=== PATIENT | female | born 1940 | race Caucasian/White ===

== ENCOUNTER 2017-02-22 | Outpatient (CLI) | payer MEDICARE, OTHER ==
[2017-02-22 19:11] LABS: HCT - HEMATOCRIT 44.3 % (37.0-47.0); HGB - HEMOGLOBIN 14.5 g/dL (12.0-16.0); MEAN CORPUSCULAR HEMOGLOBIN 33.4 pg (27.0-31.0); MEAN CORPUSCULAR HGB CONC 32.6 g/dL (32.0-36.0); MEAN CORPUSCULAR VOLUME 102.4 fL (81.0-99.0); MEAN PLATELET VOLUME 10.3 fL (7.9-10.8); RED BLOOD COUNT 4.33 10^6/uL (4.20-5.40); RED CELL DISTRIBUTION WIDTH 14.5 % (12.0-15.0); WHITE BLOOD COUNT 6.7 x10^3/uL (4.8-10.8)
[2017-02-22 19:27] LABS: ALBUMIN/GLOBULIN RATIO 1.3 (1.0-2.2); BILIRUBIN,TOTAL 0.7 mg/dL (0.2-1.0); BUN - BLOOD UREA NITROGEN 15 mg/dL (6-20); CALCIUM 9.1 mg/dL (8.5-10.3); CARBON DIOXIDE - CO2 25 mmol/L (21-32); CHLORIDE 107 mmol/L (101-111); CREATININE 0.5 mg/dL (0.4-1.0); GFR - MDRD 120 (>89); GLUCOSE 103 mg/dL (70-100); POTASSIUM 4.3 mmol/L (3.5-5.0); SODIUM 141 mmol/L (135-145); TOTAL PROTEIN 6.8 g/dL (6.7-8.2)
[2017-02-22 19:57] LABS: HEMOGLOBIN A1C 0.52 g/dL
== END 2017-02-22 00:01 | disposition home or self-care (01) ==
LOC: LAB.WCP
PROVIDERS: ATTEND Family Medicine
DX: R73.01 Impaired fasting glucose (principal); M35.3 Polymyalgia rheumatica
CPT/HCPCS: 36415; 80053; 83036; 85651; 86140

== ENCOUNTER 2017-10-19 10:00 | Outpatient (CLI) | payer MEDICARE, OTHER ==
[2017-10-19 13:09] LABS: BASOPHILS # (AUTO) 0.1 10^3/uL (0.0-0.1); BASOPHILS % (AUTO) 1.3 %; EOSINOPHILS % (AUTO) 0.2 %; HGB - HEMOGLOBIN 14.3 g/dL (12.0-16.0); LYMPHOCYTES # (AUTO) 0.6 10^3/uL (1.5-3.5); MEAN CORPUSCULAR HEMOGLOBIN 36.4 pg (27.0-31.0); MEAN CORPUSCULAR HGB CONC 35.2 g/dL (32.0-36.0); MEAN CORPUSCULAR VOLUME 103.2 fL (81.0-99.0); MEAN PLATELET VOLUME 9.9 fL (7.9-10.8); MONOCYTES # (AUTO) 0.3 10^3/uL (0.0-1.0); MONOCYTES % (AUTO) 2.9 %; NEUTROPHILS % (AUTO) 89.6 %; PLT - PLATELET COUNT 163 10^3/uL (130-450); RED BLOOD COUNT 3.94 10^6/uL (4.20-5.40); RED CELL DISTRIBUTION WIDTH 14.2 % (12.0-15.0)
[2017-10-19 13:14] LABS: ALBUMIN 3.8 g/dL (3.2-5.5); ALBUMIN/GLOBULIN RATIO 1.2 (1.0-2.2); CALCIUM 8.5 mg/dL (8.5-10.3); CREATININE 0.6 mg/dL (0.4-1.0); TOTAL PROTEIN 7.1 g/dL (6.7-8.2)
== END 2017-10-19 10:01 | disposition home or self-care (01) ==
LOC: LAB.WCP 10:00
PROVIDERS: ATTEND Family Medicine
DX: N10 Acute pyelonephritis (principal); R39.89 Other symptoms and signs involving the genitourinary system
CPT/HCPCS: 36415; 80053; 85025; 87040; 87086

== ENCOUNTER 2017-10-20 09:16 | Inpatient (IN) | payer MEDICARE, OTHER ==
--- NOTE | 2017-10-20 09:32 | ED Physician Documentation ---
History of Present Illness - Stated complaint Stated Complaint: FEMALE - Chief complaint Chief Complaint: General - History obtained from History obtained from: Patient - History of Present Illness Timing: Yesterday Pain level max: 5 Pain level now: 4 Improved by: nothing Worsened by: nothing - Additonal information Additional information: Patient is a 77-year-old female who was not feeling well for the past couple months, went to her doctor yesterday and diagnosed with pyelonephritis. Blood cultures were drawn which are growing out gram-negative bacilli, consistent with E. coli. Sent here for evaluation. Review of Systems Ten Systems: 10 systems reviewed and negative Constitutional: denies: Fever, Chills Ears: denies: Ear pain Nose: denies: Rhinorrhea / runny nose, Congestion Throat: denies: Sore throat Cardiac: denies: Chest pain / pressure Respiratory: denies: Cough GI: denies: Vomiting, Diarrhea, Hematemesis, Bloody / black stool : reports: Dysuria, Frequency, Hesitancy Skin: denies: Lesions Musculoskeletal: reports: Back pain (mild flank pain). denies: Neck pain PD PAST MEDICAL HISTORY - Past Medical History Cardiovascular: None Respiratory: COPD GI: Hiatal hernia : Kidney stones HEENT: None, Macular degeneration Psych: Depression Musculoskeletal: Chronic back pain - Past Surgical History Past Surgical History: No General: Hiatal hernia repair HEENT: Other - Present Medications Home Medications: Ambulatory Orders Medication Instructions Recorded Confirmed HYDROcod/ACETAM 5/325 [Vicodin 1 tab PO PRN PRN 09/22/15 10/20/17 5/325] PARoxetine [Paxil] 30 mg PO DAILY 09/22/15 10/20/17 Propranolol ER [Inderal LA] 60 mg PO DAILY 09/22/15 10/20/17 Tiotropium [Spiriva] 1 puffs INH DAILY 09/22/15 10/20/17 Albuterol Sulfate [Proair Hfa 2 puffs INH Q4H PRN 10/20/17 10/20/17 Inhaler] Cyanocobalamin (Vitamin B-12) 2,000 mcg PO DAILY 10/20/17 10/20/17 [Vitamin B-12] Memantine [Namenda] 10 mg PO BID 10/20/17 10/20/17 - Allergies Allergies/Adverse Reactions: Allergies Allergy/AdvReac Type Severity Reaction Status Date / Time ibuprofen [From Motrin] Allergy Unknown Verified 10/20/17 09:25 Penicillins AdvReac Intermediate Hives Verified 10/20/17 09:25 - Social History Does the pt smoke?: No Smoking Status: Never smoker Does the pt drink ETOH?: No Does the pt have substance abuse?: No - Immunizations Immunizations are current?: Yes PD ED PE NORMAL - Vitals Vital signs reviewed: Yes - General General: Alert and oriented X 3, No acute distress, Well developed/nourished - HEENT HEENT: PERRL, Moist mucous membranes - Neck Neck: Supple, no meningeal sign - Cardiac Cardiac: RRR, Strong equal pulses - Respiratory Respiratory: No respiratory distress, Clear bilaterally - Abdomen Abdomen: Soft, Non tender, Non distended - Back Back: No CVA TTP, No spinal TTP - Derm Derm: Warm and dry, No rash - Extremities Extremities: No edema, No calf tenderness / cord - Neuro Neuro: Alert and oriented X 3 - Psych Psych: Normal mood, Normal affect Results - Vitals Vitals: Vital Signs - 24 hr 10/20/17 09:22 Temperature 36.1 C L Heart Rate 95 Respiratory 18 Rate Blood Pressure 115/72 O2 Saturation 92 Oxygen O2 Source Room air - Labs Labs: Laboratory Tests 10/20/17 10/20/17 10/20/17 09:30 09:40 09:40 WBC 8.6 RBC 3.89 L Hgb 13.9 Hct 41.8 MCV 107.5 H MCH 35.7 H MCHC 33.2 RDW 14.6 Plt Count 155 MPV 10.2 Neut # 7.2 H Lymph # 0.8 L [place] # 0.6 Eos # 0.0 Baso # 0.0 Absolute Nucleated RBC 0.00 Nucleated RBC % 0.0 Sodium 133 L Potassium 3.5 Chloride 99 L Carbon Dioxide 24 Anion Gap 10.0 BUN 13 Creatinine 0.7 Estimated GFR (MDRD) 81 L Glucose 113 H Lactic Acid Calcium 8.1 L Total Bilirubin 1.0 AST 18 ALT 13 Alkaline Phosphatase 100 Total Protein 7.2 Albumin 3.7 Globulin 3.5 Albumin/Globulin Ratio 1.1 Lipase 24 Urine Color YELLOW Urine Clarity CLOUDY Urine pH 6.0 Ur Specific [place] 1.025 Urine Protein 30 H Urine Glucose (UA) NEGATIVE Urine Ketones 15 H Urine Occult Blood MODERATE H Urine Nitrite NEGATIVE Urine Bilirubin NEGATIVE Urine Urobilinogen 0.2 (NORMAL) Ur Leukocyte Esterase TRACE H Urine RBC 6-10 H Urine WBC 11-25 H Ur Squamous Epith Cells RARE Squamous Urine Bacteria Few Ur Microscopic Review INDICATED Urine Culture Comments INDICATED 10/20/17 09:40 WBC RBC Hgb Hct MCV MCH MCHC RDW Plt Count MPV Neut # Lymph # [place] # Eos # Baso # Absolute Nucleated RBC Nucleated RBC % Sodium Potassium Chloride Carbon Dioxide Anion Gap BUN Creatinine Estimated GFR (MDRD) Glucose Lactic Acid 1.1 Calcium Total Bilirubin AST ALT Alkaline Phosphatase Total Protein Albumin Globulin Albumin/Globulin Ratio Lipase Urine Color Urine Clarity Urine pH Ur Specific [place] Urine Protein Urine Glucose (UA) Urine Ketones Urine Occult Blood Urine Nitrite Urine Bilirubin Urine Urobilinogen Ur Leukocyte Esterase Urine RBC Urine WBC Ur Squamous Epith Cells Urine Bacteria Ur Microscopic Review Urine Culture Comments PD MEDICAL DECISION MAKING - ED course Complexity details: reviewed results, re-evaluated patient, considered differential, d/w patient ED course: Patient is a 77-year-old female presents to the emergency department with gram- negative bacilli consistent with E. coli growing in an outpatient blood culture. Has a positive UTI as well. Likely early urosepsis. Given IV fluids as well as Rocephin. Will admit to the hospitalist. Discussed with Dr. Wynne who accepts. This document was made in part using voice recognition software. While efforts are made to proofread this document, sound alike and grammatical errors may occur. Departure - Departure Disposition: 66 [facility] DC/Xfer Clinical Impression: Positive blood culture Sepsis Qualifiers: Sepsis type: Escherichia coli Qualified Code(s): A41.51 - Sepsis due to Escherichia coli [E. coli] UTI (urinary tract infection) Qualifiers: Urinary tract infection type: acute pyelonephritis Qualified Code(s): N10 - Acute pyelonephritis Condition: Stable Discharge Date/Time: 10/20/17 10:37
[2017-10-20] MEDS ORDERED: cefTRIAXone 1 GM VIAL IVP STA (09:44)
[2017-10-20] MEDS ORDERED: SODIUM CHLORIDE 0.9% 1,000 ML IV ONE ×2 (09:44)
[2017-10-20 09:58] LABS: BASOPHILS % (AUTO) 0.6 %; EOSINOPHILS % (AUTO) 0.3 %; HGB - HEMOGLOBIN 13.9 g/dL (12.0-16.0); LYMPHOCYTES # (AUTO) 0.8 10^3/uL (1.5-3.5); LYMPHOCYTES % (AUTO) 9.2 %; MEAN CORPUSCULAR HEMOGLOBIN 35.7 pg (27.0-31.0); MEAN CORPUSCULAR HGB CONC 33.2 g/dL (32.0-36.0); MEAN CORPUSCULAR VOLUME 107.5 fL (81.0-99.0); MEAN PLATELET VOLUME 10.2 fL (7.9-10.8); MONOCYTES # (AUTO) 0.6 10^3/uL (0.0-1.0); MONOCYTES % (AUTO) 7.1 %; NEUTROPHILS # (AUTO) 7.2 10^3/uL (1.5-6.6); NEUTROPHILS % (AUTO) 82.8 %; PLT - PLATELET COUNT 155 10^3/uL (130-450); RED BLOOD COUNT 3.89 10^6/uL (4.20-5.40); RED CELL DISTRIBUTION WIDTH 14.6 % (12.0-15.0); WHITE BLOOD COUNT 8.6 x10^3/uL (4.8-10.8)
[2017-10-20 10:06] LABS: ALBUMIN 3.7 g/dL (3.2-5.5); ALBUMIN/GLOBULIN RATIO 1.1 (1.0-2.2); CALCIUM 8.1 mg/dL (8.5-10.3); CREATININE 0.7 mg/dL (0.4-1.0); TOTAL PROTEIN 7.2 g/dL (6.7-8.2)
[2017-10-20 10:15] LABS: GLUCOSE, URINE (UA) NEGATIVE (NEGATIVE); KETONES,URINE (UA) 15 mg/dL (NEGATIVE); LEUKOCYTE ESTERASE, URINE TRACE (NEGATIVE); NITRITE,URINE NEGATIVE (NEGATIVE); OCCULT BLOOD,URINE MODERATE (NEGATIVE); PROTEIN,URINE 30 mg/dL (NEGATIVE); UROBILINOGEN,URINE 0.2 (NORMAL) E.U./dL (NORMAL)
[2017-10-20 10:16] LABS: CLARITY,URINE CLOUDY (CLEAR)
[2017-10-20 10:20] LABS: BILIRUBIN,URINE NEGATIVE (NEGATIVE); ICTOTEST,URINE NEGATIVE
[2017-10-20 10:29] LABS: BACTERIA,URINE Few /HPF (None Seen); SQUAMOUS EPITHELIAL CELL,UR RARE Squamous (<= Few)
[2017-10-20] MEDS ORDERED: PROCHLORPERAZINE 10 MG/2 ML VIAL IVP PRN (17:24)
[2017-10-20] MEDS ORDERED: HYDROmorphone 1 MG/ML SYRINGE IVP PRN (17:24)
[2017-10-20] MEDS ORDERED: ACETAMINOPHEN 325 MG TABLET PO PRN (17:24)
[2017-10-20] MEDS ORDERED: SODIUM CHLORIDE FLUSH 0.9% 10 ML SYRINGE IVP PRN (17:24)
[2017-10-20] MEDS ORDERED: HYDROcod/ACETAM 5/325 MG TABLET PO PRN (17:28)
[2017-10-20] MEDS: SODIUM CHLORIDE 0.9% 1,000 ML IV SCH (18:21)
[2017-10-20] MEDS ORDERED: ALBUTEROL NEB 2.5 MG/3 ML INH PRN (19:00)
[2017-10-20] MEDS: FAMOTIDINE 20 MG TABLET PO SCH (20:17)
[2017-10-20] MEDS: MEMANTINE 5 MG TABLET PO SCH (20:17)
[2017-10-20] MEDS: SODIUM CHLORIDE FLUSH 0.9% 10 ML SYRINGE IVP SCH (20:19)
[2017-10-20] MEDS: IPRATROPIUM 0.2 MG/ML NEB INH SCH (20:49)
--- NOTE | 2017-10-20 21:00 | XRAY Preliminary Report ---
Exam: XR CHEST 1 VIEW X-RAY IMPRESSION: Chronic lung disease. [facility] SITE ID: [id number]
--- NOTE | 2017-10-20 21:02 | XRAY Report ---
EXAM: CHEST RADIOGRAPHY EXAM DATE: 10/20/2017 07:33 PM. CLINICAL HISTORY: Productive cough. COMPARISON: 06/03/2017. TECHNIQUE: 1 view. FINDINGS: Lungs/Pleura: No focal opacities evident. No pleural effusion. No pneumothorax. Overexpanded, emphyse matous changes. Mediastinum: Within exam limitations, the cardiomediastinal contour is normal. Other: None. IMPRESSION: Chronic lung disease. [facility] Referring Provider Line: [phone] SITE ID: [id number]
[2017-10-20] MEDS: ZOLPIDEM 5 MG TABLET PO PRN (21:32)
[2017-10-21] MEDS ORDERED: HYDROcod/ACETAM 5/325 MG TABLET PO PRN (00:04)
[2017-10-21 05:35] LABS: BASOPHILS % (AUTO) 0.8 %; EOSINOPHILS # (AUTO) 0.2 10^3/uL (0.0-0.7); HGB - HEMOGLOBIN 11.9 g/dL (12.0-16.0); LYMPHOCYTES % (AUTO) 22.9 %; MEAN CORPUSCULAR HEMOGLOBIN 35.4 pg (27.0-31.0); MEAN CORPUSCULAR HGB CONC 32.8 g/dL (32.0-36.0); MEAN CORPUSCULAR VOLUME 107.9 fL (81.0-99.0); MEAN PLATELET VOLUME 9.6 fL (7.9-10.8); MONOCYTES # (AUTO) 0.5 10^3/uL (0.0-1.0); MONOCYTES % (AUTO) 12.2 %; NEUTROPHILS # (AUTO) 2.7 10^3/uL (1.5-6.6); NEUTROPHILS % (AUTO) 60.1 %; PLT - PLATELET COUNT 135 10^3/uL (130-450); RED BLOOD COUNT 3.37 10^6/uL (4.20-5.40); RED CELL DISTRIBUTION WIDTH 14.2 % (12.0-15.0); WHITE BLOOD COUNT 4.5 x10^3/uL (4.8-10.8)
[2017-10-21 05:41] LABS: CALCIUM 7.6 mg/dL (8.5-10.3); CREATININE 0.6 mg/dL (0.4-1.0)
[2017-10-21] MEDS: SODIUM CHLORIDE FLUSH 0.9% 10 ML SYRINGE IVP SCH ×3 (05:58→21:10)
[2017-10-21] MEDS: SODIUM CHLORIDE 0.9% 1,000 ML IV SCH ×2 (06:38→19:57)
[2017-10-21] MEDS ORDERED: IOPAMIDOL-300 100 ML VIAL IVP ONE (06:41)
--- NOTE | 2017-10-21 07:07 | CT Report ---
EXAM: CT HEAD EXAM DATE: 10/21/2017 06:46 AM. CLINICAL HISTORY: Headache. COMPARISON: 01/15/2011 TECHNIQUE: Multiaxial CT images were obtained from the foramen magnum to the vertex. Reformats: Coron al. IV contrast: None. In accordance with CT protocol optimization, one or more of the following dose reduction techniques w ere utilized for this exam: automated exposure control, adjustment of mA and/or KV based on patient s ize, or use of iterative reconstructive technique. FINDINGS: Parenchyma: No intraparenchymal hemorrhage. No evidence of mass, midline shift, or CT findings of acu te infarction. Ferguson-white differentiation is distinct. Diffuse chronic microangiopathic white matter changes are evident. Extraaxial Spaces: Normal for age. No subdural or epidural collections identified. Ventricles: The ventricles and cortical sulci are enlarged, consistent with age-related tissue loss. Sinuses and orbits: Imaged paranasal sinuses, orbits, and mastoids show no significant abnormality. Bones: No evidence of fracture or calvarial defect. Other: No acute findings or significant interval change compared with 01/15/2011. IMPRESSION: Generalized age-related changes without evidence of acute intracranial abnormality. [facility] Referring Provider Line: [phone] SITE ID: [id number]
--- NOTE | 2017-10-21 07:07 | CT Preliminary Report ---
Exam: CT HEAD W/O IMPRESSION: Generalized age-related changes without evidence of acute intracranial abnormality. [facility] SITE ID: [id number]
--- NOTE | 2017-10-21 07:11 | HISTORY & PHYSICAL EXAMINATION ---
DATE OF SERVICE: 10/20/2017 Physician: Shelby Whiteside MD DATE OF ADMISSION: 10/20/2017 HISTORY OF PRESENT ILLNESS: This is a 77-year-old white female with a history of COPD on inhalers, GERD, macular degeneration, hiatal hernia, depression, remote history of kidney stones and frequent UTIs. The patient states that over the past 1 or 2 months she has been "not feeling well" and has been treated for bronchitis. Despite finishing antibiotics, she still has a chronic morning cough with green and yellow sputum production and the first sputum in the morning is blood tinged. She started to develop lower abdominal pain 1 or 2 days ago and went to see her primary care provider who obtained urine and blood samples and she was suspected of having a UTI. The blood cultures returned positive and the patient was called to come to the emergency room for treatment. PAST MEDICAL HISTORY 1. COPD on inhalers. 2. Hiatal hernia. 3. Kidney stones. 4. Frequent UTIs. 5. Depression. 6. Chronic low back pain. 7. Macular degeneration. PAST SURGICAL HISTORY: Hiatal hernia repair. ALLERGIES 1. IBUPROFEN. 2. PENICILLIN CAUSES HIVES. HOME MEDICATIONS 1. Vicodin p.r.n. pain. 2. Paxil. 3. Inderal LA 60 mg p.o. daily. 4. Spiriva 1 puff daily. 5. ProAir HFA 2 puffs every 4 hours p.r.n. 6. B12 daily. 7. Namenda 10 mg b.i.d. FAMILY HISTORY: There are no inherited diseases. SOCIAL HISTORY: The patient is an ex-smoker who quit 20 years ago, she drinks alcohol socially, she uses no illicit drugs. She lives alone. She was at the age 49, had no children, is . The ex- has . REVIEW OF SYSTEMS: The patient denies any fever, but states she "never gets a fever." The patient has a tension headache, which is worse frontally when she coughs. She has had no diarrhea, nausea or vomiting. She has no dysuria. A comprehensive review of systems was performed and all other organs are negative. PHYSICAL EXAMINATION GENERAL: White female who appears in mild distress from pain. VITAL SIGNS: Blood pressure 120/54, heart rate 79 in sinus rhythm, afebrile. HEENT: Unremarkable with moist oral mucosa. NECK: Shows no carotid bruits, thyromegaly, or JVD. CHEST: Diminished breath sounds diffusely, but no wheezes or rales. HEART: Sounds are normal. No audible murmurs. ABDOMEN: Soft, positive bowel sounds, nontender to light palpation. No organomegaly. EXTREMITIES: Show no clubbing, cyanosis or edema. NEUROLOGIC: Grossly intact. LABORATORY DATA: Sodium 133, potassium 3.5, BUN and creatinine normal. Liver tests normal, bilirubin, normal. Lactic acid normal at 1.1. Lipase normal. CBC normal at 8.6, hemoglobin 13.9, platelet count normal at 155. Urinalysis showed pH of 6, protein that was high, occult blood moderate, ketones moderate, leukocyte esterase trace, WBCs high, RBCs high, and few bacteria. The outpatient blood culture apparently is growing gram-negative bacteria. No imaging studies were done. No EKG was done. IMPRESSION/DIAGNOSES and PLAN: 1. Gram-negative bacteremia. This is likely from the pyelonephritis/urinary tract infection. Await the blood cultures and continue empiric Rocephin 1 gram IV daily, which was started in the emergency room. 2. Urinary tract infection with lower abdominal pain and flank pain. Continue with IV fluids. Obtain imaging of the abdomen and pelvis to rule out obstructive uropathy or kidney stones as she has had in the past which could be a nidus for recurrent infection. Await the urine and blood cultures. 3. Cough with blood-tinged sputum and recent bronchitis. Obtain a sputum culture and obtain a chest x-ray. 4. Headache during cough. This needs attention as it could be a sign of increased intracranial pressure. Therefore, a CT of the head will be done for screening. This could also be a sign of overall bacteremia and illness and will be treated with pain medications. 5. History of kidney stones. The CT of abdomen and pelvis will evaluate for this. Because of blood in the urine, nephrolithiasis is once again suspected. 6. History of chronic obstructive pulmonary disease. Continue her inhalers. Obtain this chest x-ray. Ceftriaxone should be coverage for gram-negative and atypical bacteria. Deep venous thrombosis prophylaxis: sequential compression devices. o Lovenox due to "blood tinged sputum". CODE STATUS: FULL CODE. ATTESTATION: The patient is expected to be discharged or transferred to another facility within 96 hours: Yes. TD: 10/21/2017 07:10 [place]
[2017-10-21] MEDS: IPRATROPIUM 0.2 MG/ML NEB INH SCH ×3 (08:07→10:04)
--- NOTE | 2017-10-21 08:14 | CT Report ---
EXAM: CT ABDOMEN AND PELVIS EXAM DATE: 10/21/2017 06:44 AM. CLINICAL HISTORY: Pyelonephritis, Lower abd pain. COMPARISONS: None. TECHNIQUE: Routine helical CT imaging was performed through the abdomen and pelvis. IV contrast: 100M L ISOVUE 300. Enteric contrast: No. Reconstructions: Coronal and sagittal. In accordance with CT protocol optimization, one or more of the following dose reduction techniques w ere utilized for this exam: automated exposure control, adjustment of mA and/or KV based on patient s ize, or use of iterative reconstructive technique. FINDINGS: Lung Bases: Unremarkable. Liver: Normal. No masses. Gallbladder/Bile Ducts: Unremarkable. Spleen: There is a 1.1 cm, previously 0.6 cm hypodense focus along the lateral cortex of the spleen. This measures 66 Hounsfield units in attenuation. Pancreas: Normal. Adrenal Glands: Normal. Kidneys: There is a 3.1 cm simple appearing cyst in the superior pole of the left kidney. There are m ultiple nonobstructing stones in the left and right kidneys measuring up to 6 mm on the left and 4 mm on the right. There is mild right-sided hydronephrosis and hydroureter down to the level of an obstr ucting stone measuring 7 mm at the ureterovesical junction. Peritoneal Cavity/Bowel: Normal. No free fluid, free air or adenopathy. No masses or acute inflammato ry process. The appendix is well visualized and normal. Pelvic Organs: Normal. The bladder and visualized pelvic organs are within normal limits. Vasculature: No aneurysms or other significant abnormality. Bones: No significant abnormality. Other: None. IMPRESSION: 1. Mild right-sided hydronephrosis and hydroureter down to the level of an obstructing 7 mm stone in the ureterovesical junction. 2. Multiple nonobstructing stones in the left and right kidneys measuring up to 6 mm on the left and 4 mm on the right. 3. No bowel obstruction or inflammatory process associated with the bowel. [facility] Referring Provider Line: [phone] SITE ID: [id number]
--- NOTE | 2017-10-21 08:14 | CT Preliminary Report ---
Exam: CT ABDOMEN/PELVIS W/ IMPRESSION: 1. Mild right-sided hydronephrosis and hydroureter down to the level of an obstructing 7 mm stone in the ureterovesical junction. 2. Multiple nonobstructing stones in the left and right kidneys measuring up to 6 mm on the left and 4 mm on the right. 3. No bowel obstruction or inflammatory process associated with the bowel. [facility] SITE ID: [id number]
[2017-10-21] MEDS: FAMOTIDINE 20 MG TABLET PO SCH ×2 (10:33→21:10)
[2017-10-21] MEDS: PARoxetine 10 MG TABLET PO SCH (10:33)
[2017-10-21] MEDS: CHOLECALCIFEROL 1,000 UNIT TABLET PO SCH (10:34)
[2017-10-21] MEDS: PROPRANOLOL ER 60 MG CAPSULE PO SCH (10:34)
[2017-10-21] MEDS: MEMANTINE 5 MG TABLET PO SCH ×2 (10:34→21:10)
[2017-10-21] MEDS: cefTRIAXone 1 GM in SODIUM CHLORIDE 0.9% MINIBAG 100 ML IV SCH (10:35)
[2017-10-21] MEDS: POLYETHYLENE GLYCOL 3350 17 GM PACKET PO SCH (10:44)
[2017-10-21 11:16] LABS: FOLATE 7.67 ng/mL (5.90 - >24.8)
[2017-10-21] MEDS: IPRATROPIUM/ALBUTEROL 3 ML NEB INH SCH ×3 (15:10→19:10)
[2017-10-21] MEDS: FOLIC ACID 1 MG TABLET PO SCH (16:11)
--- NOTE | 2017-10-21 19:36 | PROVIDER PROGRESS NOTE ---
Assessment/Plan - Problem List (1) Gram-negative bacteremia Assessment/Plan: The Ecoli growing in her cultures are sensitive to her iv Ceftriaxone. She appears clinically better on iv antibiotics and iv fluids plus rest. Continue plan (2) E-coli UTI Assessment/Plan: As above in #1. (3) Hydronephrosis with renal and ureteral calculus obstruction Assessment/Plan: This requires decompression and to eliminate a nidus for infection. I will reach out to Hospitalist and Urology at hospital with higher level of care. Will order straining of urine. (4) COPD (chronic obstructive pulmonary disease) Qualifiers: COPD type: chronic bronchitis Assessment/Plan: Sputum sample shows common oral keli. Continue with COPD management. - Current Meds Current Meds: Current Medications Generic Name Dose Route Start Last Admin Trade Name Freq PRN Reason Stop Dose Admin Acetaminophen 650 mg 10/20/17 17:24 10/21/17 06:38 Tylenol PO 650 mg Q4HR PRN Administration Pain or Fever > 38C (100.4F) Cholecalciferol 2,000 unit 10/21/17 09:00 10/21/17 10:34 Vitamin D3 PO 2,000 unit DAILY [place] Administration Famotidine 20 mg 10/20/17 21:00 10/21/17 10:33 Pepcid PO 20 mg BID [place] Administration Folic Acid 1 mg 10/21/17 16:00 10/21/17 16:11 PO 1 mg DAILY [place] Administration Sodium Chloride 1,000 mls @ 80 mls/hr 10/20/17 18:00 10/21/17 11:15 Normal Saline 0.9% IV 80 mls/hr .[id number] [place] Infusion Ceftriaxone Sodium 1 gm/ 100 mls @ 200 mls/hr 10/21/17 09:00 10/21/17 11:05 Sodium Chloride IV Infused DAILY [place] Infusion Memantine 10 mg 10/20/17 21:00 10/21/17 10:34 Namenda PO 10 mg BID [place] Administration Paroxetine HCl 30 mg 10/21/17 09:00 10/21/17 10:33 Paxil PO 30 mg DAILY [place] Administration Polyethylene Glycol 17 gm 10/21/17 09:00 10/21/17 10:44 Miralax PO Not Given DAILY [place] Propranolol HCl 60 mg 10/21/17 09:00 10/21/17 10:34 Inderal La PO 60 mg DAILY [place] Administration Sodium Chloride 10 ml 10/20/17 22:00 10/21/17 08:08 Normal Saline Flush 0.9% IVP Not Given Q8HR [place] Zolpidem Tartrate 5 mg 10/20/17 17:24 10/20/17 21:32 Ambien PO 5 mg QPM PRN Administration Insomnia - Lab Result Fish Bone Diagrams: 10/22/17 09:30 10/21/17 05:17 - Additional Planning My Orders: My Active Orders 10/20/17 20:54 RT [Nebulizer/MDI Tx.] [RC] .qid/q4prn 10/20/17 21:00 Famotidine [Pepcid] 20 mg PO BID Memantine [Namenda] 10 mg PO BID 10/20/17 22:00 Sodium Chloride Flush 0.9% [Normal Saline Flush 0.9%] 10 ml IVP Q8HR 10/21/17 08:30 CUL, RESPIRATORY [RM] Urgent 10/21/17 09:00 Cholecalciferol [Vitamin D3] 2,000 unit PO DAILY PARoxetine [Paxil] 30 mg PO DAILY Polyethylene Glycol 3350 [Miralax] 17 gm PO DAILY Propranolol ER [Inderal LA] 60 mg PO DAILY cefTRIAXone [Rocephin] 1 gm Sodium Chloride 0.9% Minibag [Normal Saline 0.9% Minibag] 100 ml IV DAILY 10/21/17 11:05 Resp Teach Nebulizer/MDI [RC] .ONCE 10/21/17 12:00 Ipratropium/Albuterol [Duoneb] 3 ml INH RTQID 10/21/17 16:00 Folic Acid 1 mg PO DAILY Subjective - Subjective Patient Reports: Feeling Better, Resting Comfortably Nursing Reports: No Complaints Objective Vital Signs: Vital Signs - 24 hr 10/20/17 10/20/17 10/20/17 20:50 21:49 23:47 Temperature 36.7 C 37.1 C Heart Rate 71 Heart Rate [ 71 85 Brachial] Respiratory 20 16 17 Rate Blood Pressure 108/50 L 114/63 [Left Brachial artery] O2 Saturation 95 95 10/21/17 10/21/17 10/21/17 09:51 10:09 15:10 Temperature 37.1 C Heart Rate 95 96 Heart Rate [ 92 Brachial] Respiratory 16 20 20 Rate Blood Pressure 111/55 L [Left Brachial artery] O2 Saturation 95 10/21/17 10/21/17 16:21 16:29 Temperature 37.1 C Heart Rate Heart Rate [ 70 Brachial] Respiratory 22 Rate Blood Pressure 131/54 H [Left Brachial artery] O2 Saturation 90 L 95 Oxygen O2 Source Room air I&O (Last 24 Hrs): Intake and Output Totals x24h 10/19/17 10/20/17 10/21/17 23:59 23:59 23:59 Intake Total 2490 2330.667 Output Total 650 1350 Balance 1840 980.667 General: Alert, Oriented x3 HEENT: Mucous membr. moist/pink Neck: Supple Cardiovascular: Regular rate, No murmurs Respiratory: Other (Wet cough, clear lung velez, prolonged expiratory phase.) Extremities: No edema - Results Results: Laboratory Results WBC 4.5 x10^3/uL (4.8-10.8) L 10/21/17 05:17 RBC 3.37 10^6/uL (4.20-5.40) L 10/21/17 05:17 Hgb 11.9 g/dL (12.0-16.0) L 10/21/17 05:17 Hct 36.3 % (37.0-47.0) L 10/21/17 05:17 MCV 107.9 fL (81.0-99.0) H 10/21/17 05:17 MCH 35.4 pg (27.0-31.0) H 10/21/17 05:17 MCHC 32.8 g/dL (32.0-36.0) 10/21/17 05:17 RDW 14.2 % (12.0-15.0) 10/21/17 05:17 Plt Count 135 10^3/uL (130-450) 10/21/17 05:17 MPV 9.6 fL (7.9-10.8) 10/21/17 05:17 Neut # 2.7 10^3/uL (1.5-6.6) 10/21/17 05:17 Lymph # 1.0 10^3/uL (1.5-3.5) L 10/21/17 05:17 [place] # 0.5 10^3/uL (0.0-1.0) 10/21/17 05:17 Eos # 0.2 10^3/uL (0.0-0.7) 10/21/17 05:17 Baso # 0.0 10^3/uL (0.0-0.1) 10/21/17 05:17 Absolute Nucleated RBC 0.00 x10^3/uL 10/21/17 05:17 Nucleated RBC % 0.0 /100WBC 10/21/17 05:17 Sodium 140 mmol/L (135-145) 10/21/17 05:17 Potassium 3.2 mmol/L (3.5-5.0) L 10/21/17 05:17 Chloride 108 mmol/L (101-111) 10/21/17 05:17 Carbon Dioxide 25 mmol/L (21-32) 10/21/17 05:17 Anion Gap 7.0 (6-13) 10/21/17 05:17 BUN 9 mg/dL (6-20) 10/21/17 05:17 Creatinine 0.6 mg/dL (0.4-1.0) 10/21/17 05:17 Estimated GFR (MDRD) 97 (>89) 10/21/17 05:17 Glucose 102 mg/dL (70-100) H 10/21/17 05:17 Lactic Acid 1.1 mmol/L (0.5-2.2) 10/20/17 09:40 Uric Acid 4.0 mg/dL (2.6-7.2) 10/21/17 05:17 Calcium 7.6 mg/dL (8.5-10.3) L 10/21/17 05:17 Magnesium 2.0 mg/dL (1.7-2.8) 10/21/17 05:17 Total Bilirubin 1.0 mg/dL (0.2-1.0) 10/20/17 09:40 AST 18 IU/L (10-42) 10/20/17 09:40 ALT 13 IU/L (10-60) 10/20/17 09:40 Alkaline Phosphatase 100 IU/L (42-121) 10/20/17 09:40 Total Protein 7.2 g/dL (6.7-8.2) 10/20/17 09:40 Albumin 3.7 g/dL (3.2-5.5) 10/20/17 09:40 Globulin 3.5 g/dL (2.1-4.2) 10/20/17 09:40 Albumin/Globulin Ratio 1.1 (1.0-2.2) 10/20/17 09:40 Lipase 24 U/L (22-51) 10/20/17 09:40 Vitamin B12 2315 pg/mL (180-914) H 10/21/17 05:17 Folate 7.67 ng/mL (5.90 - >24.8) 10/21/17 05:17 Urine Color YELLOW 10/20/17 09:30 Urine Clarity CLOUDY (CLEAR) 10/20/17 09:30 Urine pH 6.0 PH (5.0-7.5) 10/20/17 09:30 Ur Specific [place] 1.025 (1.002-1.030) 10/20/17 09:30 Urine Protein 30 mg/dL (NEGATIVE) H 10/20/17 09:30 Urine Glucose (UA) NEGATIVE mg/dL (NEGATIVE) 10/20/17 09:30 Urine Ketones 15 mg/dL (NEGATIVE) H 10/20/17 09:30 Urine Occult Blood MODERATE (NEGATIVE) H 10/20/17 09:30 Urine Nitrite NEGATIVE (NEGATIVE) 10/20/17 09:30 Urine Bilirubin NEGATIVE (NEGATIVE) 10/20/17 09:30 Urine Urobilinogen 0.2 (NORMAL) E.U./dL (NORMAL) 10/20/17 09:30 Ur Leukocyte Esterase TRACE (NEGATIVE) H 10/20/17 09:30 Urine RBC 6-10 /HPF (0-5) H 10/20/17 09:30 Urine WBC 11-25 /HPF (0-5) H 10/20/17 09:30 Ur Squamous Epith Cells RARE Squamous (<= Few) 10/20/17 09:30 Urine Bacteria Few /HPF (None Seen) 10/20/17 09:30 Ur Microscopic Review INDICATED 10/20/17 09:30 Urine Culture Comments INDICATED 10/20/17 09:30 - Procedures Procedures: Procedures EXCISION OF LARGE INTESTINE, ENDO, DIAGN (09/23/15) EXCISION OF TRANSVERSE COLON, ENDO (09/23/15)
[2017-10-21] MEDS: ZOLPIDEM 5 MG TABLET PO PRN (21:10)
[2017-10-22] MEDS: SODIUM CHLORIDE FLUSH 0.9% 10 ML SYRINGE IVP SCH ×2 (05:13→07:07)
[2017-10-22] MEDS: POLYETHYLENE GLYCOL 3350 17 GM PACKET PO SCH (07:15)
[2017-10-22] MEDS: IPRATROPIUM/ALBUTEROL 3 ML NEB INH SCH ×2 (08:40→12:30)
[2017-10-22] MEDS: SODIUM CHLORIDE 0.9% 1,000 ML IV SCH (09:32)
[2017-10-22] MEDS: cefTRIAXone 1 GM in SODIUM CHLORIDE 0.9% MINIBAG 100 ML IV SCH (09:40)
[2017-10-22] MEDS: PARoxetine 10 MG TABLET PO SCH (09:45)
[2017-10-22] MEDS: FOLIC ACID 1 MG TABLET PO SCH (09:49)
[2017-10-22] MEDS: FAMOTIDINE 20 MG TABLET PO SCH (09:49)
[2017-10-22 09:51] LABS: BASOPHILS % (AUTO) 0.6 %; EOSINOPHILS # (AUTO) 0.3 10^3/uL (0.0-0.7); EOSINOPHILS % (AUTO) 5.5 %; HGB - HEMOGLOBIN 12.1 g/dL (12.0-16.0); LYMPHOCYTES # (AUTO) 1.1 10^3/uL (1.5-3.5); LYMPHOCYTES % (AUTO) 22.8 %; MEAN CORPUSCULAR HEMOGLOBIN 35.5 pg (27.0-31.0); MEAN CORPUSCULAR HGB CONC 33.6 g/dL (32.0-36.0); MEAN CORPUSCULAR VOLUME 105.6 fL (81.0-99.0); MEAN PLATELET VOLUME 9.4 fL (7.9-10.8); MONOCYTES # (AUTO) 0.5 10^3/uL (0.0-1.0); MONOCYTES % (AUTO) 10.2 %; NEUTROPHILS % (AUTO) 60.9 %; PLT - PLATELET COUNT 172 10^3/uL (130-450); RED CELL DISTRIBUTION WIDTH 14.4 % (12.0-15.0)
[2017-10-22] MEDS: CHOLECALCIFEROL 1,000 UNIT TABLET PO SCH (09:51)
[2017-10-22] MEDS: PROPRANOLOL ER 60 MG CAPSULE PO SCH (09:51)
[2017-10-22] MEDS: MEMANTINE 5 MG TABLET PO SCH (11:37)
[2017-10-22] MEDS ORDERED: SODIUM CHLORIDE FLUSH 0.9% 10 ML SYRINGE ONE (12:01)
--- NOTE | 2017-10-22 14:29 | Discharge Plan ---
Discharge Plan Disposition: 02 Transfer Acute Care Hosp Condition: Stable No Smoking: If you smoke, Please STOP! Call for help. Follow-up with: Shruti Zamudio DO [Primary Care Provider] -
[2017-10-22 17:04] VITALS: BP 146/77
--- NOTE | 2017-11-02 04:31 | DISCHARGE SUMMARY ---
DATE OF ADMISSION: 10/20/2017 DATE OF TRANSFER: 10/22/2017 HISTORY OF PRESENT ILLNESS: This is a 77-year-old, white female with a history of COPD, prior kidney stones, mild dementia, who presents with a recent URI that was treated with antibiotics, and then she developed lower abdominal pain and bilateral flank pain, and presented to the emergency room. She came to the emergency room, after being called by her primary care doctor's office where she was the previous day, and they had taken urine and blood cultures. She was contacted on this day and told that her blood cultures had turned positive and she was told to come to the emergency room. HOSPITAL COURSE AND DISCHARGE DIAGNOSES 1. Hydronephrosis with calculus obstruction. The patient had a urinary tract infection which was evaluated with imaging of the abdomen and pelvis, and this showed mild right-sided hydronephrosis and hydroureter down to the level of an obstructing 7 mm stone in the ureterovesical junction, multiple nonobstructing stones in the left and right kidneys measuring up to 6 mm on the left and 4 mm on the right. Because we have no Interventional Radiology or Urology specialist at this critical access hospital, I contacted a Urologist, who agreed that he would be consulting if accepted by their Hospitalist. She was transferred to [facility] under the care of a Hospitalist with Urology consulting for management of this current problem. 2. Escherichia coli bacteremia. The blood culture returned positive in less than 1 day, growing Ecoli. The source was a urinary tract infection, which grew the same Escherichia coli. She was managed with ceftriaxone IV. 3. Escherichia coli pyelonephritis. The same bacteria grew in a urine culture and was managed with intravenous antibiotics as above. The pyelonephritis was secondary to her obstructing calculus and was managed as in #1 above. 4. Chronic obstructive pulmonary disease. The patient's recent upper respiratory tract infection was evaluated with a chest x-ray and this showed no evidence of pneumonia, but chest x-ray findings of over expansion and emphysematous changes. The patient was kept on her standard inhaler doses during this hospital stay. 5. Dementia, mild. The patient was on medications for dementia, which were continued. ALLERGIES 1. IBUPROFEN. 2. PENICILLINS. MEDICATIONS AT THE TIME OF TRANSFER 1. ProAir inhaler 2 puffs q.4 hours. 2. B12 2000 mcg daily. 3. Vicodin 1 tablet p.o. p.r.n. 4. Namenda 10 mg p.o. b.i.d. 5. Paxil 30 mg p.o. daily. 6. Inderal LA 60 mg p.o. daily. 7. Spiriva 1 puff inhaled daily. 8. Ceftriaxone 1 gram IV q.24 hours. 9. Tylenol p.r.n. pain. 10. She was on Pepcid 20 mg p.o. b.i.d. for stress ulcer prophylaxis and SCDs. No Lovenox because of blood in the urine on urinalysis. LABORATORIES AND IMAGING: Reviewed and summarized above. CONDITION AT TRANSFER: Stable. PHYSICAL EXAMINATION AT TRANSFER VITAL SIGNS: Blood pressure 146/77, pulse of 70 in sinus rhythm, afebrile, room air saturation 93%. HEENT: Unremarkable with moist oral mucosa. NECK: No JVD, carotid bruit, thyromegaly or lymphadenopathy. CHEST: Clear. No wheezes. Good air movement. HEART: Sounds normal. No audible murmur. ABDOMEN: Soft. Mild tenderness in the posterior flanks. Normal bowel sounds. EXTREMITIES: No clubbing, cyanosis or edema. No skin discoloration or rashes. NEUROLOGIC: Grossly intact. CODE STATUS: FULL CODE. FOLLOWUP: To be determined after her hospital stay at [facility]. TOTAL TIME REQUIRED TO COMPLETE THIS DISCHARGE: 60 minutes. TD: 11/02/2017 04:30 MTDNunu
== END 2017-10-22 16:57 | disposition short-term general hospital (02) | DRG 690 ==
LOC: ED 09:16 → MS2 10:16
PROVIDERS: ADMIT Internal Medicine; ATTEND Internal Medicine
DX: N10 Acute pyelonephritis (principal); N13.6 Pyonephrosis; R78.81 Bacteremia; B96.20 Unspecified Escherichia coli [E. coli] as the cause of diseases classified elsewhere; J44.9 Chronic obstructive pulmonary disease, unspecified; M54.9 Dorsalgia, unspecified; K21.9 Gastro-esophageal reflux disease without esophagitis; F32.9 Major depressive disorder, single episode, unspecified; M54.5 Low back pain; G89.29 Other chronic pain; F03.90 Unspecified dementia, unspecified severity, without behavioral disturbance, psychotic disturbance, mood disturbance, and anxiety; Z87.891 Personal history of nicotine dependence
CPT/HCPCS: 36415; 70450; 71045; 74177; 80048; 80053; 81001; 81003; 82607; 82746; 83605; 83690; 83735; 84550; 85025; 87040; 87070; 87086; 87205; 94640; 96361; 96374; 99283; 99285

== ENCOUNTER 2017-10-22 17:03 | Outpatient (CLI) | payer MEDICARE, OTHER | END 2017-10-22 17:04 | disposition short-term general hospital (02) | LOC: EMS 17:03 | PROVIDERS: ATTEND Surgery | DX: N13.6 Pyonephrosis (principal) | CPT/HCPCS: A0170; A0425; A0428 ==

== ENCOUNTER 2018-08-28 17:44 | Outpatient (CLI) | payer MEDICARE, OTHER ==
--- NOTE | 2018-08-28 18:50 | CT Report ---
Reason: MEDULLARY SPONGE KIDNEY, URINARY FREQUENCY, HX OF Procedure Date: 08/28/2018 Accession Number: [id number] / [id number] Procedure: CT - Abdomen/Pelvis W/O CPT Code: FULL RESULT: EXAM: CT ABDOMEN AND PELVIS (CT KUB) EXAM DATE: 08/28/2018 05:45 PM. CLINICAL HISTORY: MEDULLARY SPONGE KIDNEY, URINARY FREQUENCY, HX OF. COMPARISONS: 10/21/2017. TECHNIQUE: Routine axial helical CT imaging was performed through the abdomen and pelvis without IV contrast. Reconstructions: Coronal and sagittal. In accordance with CT protocol optimization, one or more of the following dose reduction techniques were utilized for this exam: automated exposure control, adjustment of mA and/or KV based on patient size, or use of iterative reconstructive technique. FINDINGS: Lung Bases: Unremarkable. Right Kidney/Ureter: Distal ureteral stone measuring about 2 mm on axial image 66 with no hydronephrosis. Numerous other nonobstructing renal calculi ranging from punctate to as much as 4 mm, compatible with history of medullary sponge. Otherwise unremarkable. Left Kidney/Ureter: Multiple cysts. Numerous nonobstructing renal calculi ranging from punctate to as much as 9 x 6 mm, compatible with history of medullary sponge. No ureteral stone. No hydronephrosis. Otherwise unremarkable. Other Solid Organs: Noncontrast images of the solid organs are grossly unremarkable. Gallbladder/Bile Ducts: Unremarkable. Peritoneal Cavity: No free fluid, free air or jose manuel adenopathy. Moderate colonic diverticulosis. Bowel otherwise is grossly unremarkable. Normal appendix. Pelvic Organs: Decompressed urinary bladder. Absent uterus. Vasculature: Unremarkable. Other: None. IMPRESSION: 1. Small distal right ureteral stone measuring about 2 mm, with no hydronephrosis. 2. Multiple bilateral nonobstructing renal calculi compatible with medullary sponge kidneys. 3. Moderate diverticulosis and other chronic or incidental findings. RADIA
== END 2018-08-28 17:45 | disposition home or self-care (01) ==
LOC: DI 17:44
PROVIDERS: ATTEND Family Medicine
DX: N20.2 Calculus of kidney with calculus of ureter (principal); Z87.442 Personal history of urinary calculi; K57.30 Diverticulosis of large intestine without perforation or abscess without bleeding; Q61.5 Medullary cystic kidney
CPT/HCPCS: 74176

== ENCOUNTER 2018-11-17 12:13 | Emergency (ER) | payer MEDICARE, OTHER ==
[2018-11-17 13:06] LABS: BILIRUBIN,URINE NEGATIVE (NEGATIVE); GLUCOSE, URINE (UA) 100 mg/dL (NEGATIVE); KETONES,URINE (UA) NEGATIVE (NEGATIVE); LEUKOCYTE ESTERASE, URINE SMALL (NEGATIVE); NITRITE,URINE POSITIVE (NEGATIVE); OCCULT BLOOD,URINE SMALL (NEGATIVE); PH,URINE 5.5 PH (5.0-7.5); PROTEIN,URINE TRACE mg/dL (NEGATIVE); UROBILINOGEN,URINE 0.2 (NORMAL) E.U./dL (NORMAL)
[2018-11-17 13:10] LABS: CLARITY,URINE CLOUDY (CLEAR)
[2018-11-17 13:20] LABS: BACTERIA,URINE Rare /HPF (None Seen); RBC,URINE 0-5 /HPF (0-5); SQUAMOUS EPITHELIAL CELL,UR NONE SEEN (<= Few)
--- NOTE | 2018-11-17 15:01 | ED Physician Documentation ---
PD HPI ABD PAIN - Stated complaint Stated Complaint: FEMALE - Chief complaint Chief Complaint: Abd Pain - History obtained from History obtained from: Patient - History of Present Illness Timing - onset: How many days ago (several) Timing - duration: Days (several) Timing - details: Gradual onset Pain level max: 5 Pain level now: 4 Quality: Aching, Pain Location: Suprapubic Radiation: Right flank Improved by: Other (nothing) Worsened by: Other (urination) Associated symptoms: Dysuria, Other (urinary frequency). No: Fever, Nausea, Vomiting, Hematemesis, Diarrhea, Constipation, Melena, Hematochezia, Hematuria - Additional information Additional information: Patient states she has a long history of recurrent kidney stones as well as UTI. Having symptoms of a UTI and is concerned she may have another kidney stone. Review of Systems Constitutional: denies: Fever, Chills Throat: denies: Sore throat Cardiac: denies: Chest pain / pressure Respiratory: denies: Cough GI: denies: Vomiting, Diarrhea : reports: Dysuria, Frequency, Hesitancy Skin: denies: Rash Musculoskeletal: denies: Neck pain, Back pain Neurologic: denies: Headache PD PAST MEDICAL HISTORY - Past Medical History Past Medical History: Yes Cardiovascular: None Respiratory: COPD GI: Hiatal hernia, Chronic diarrhea : Kidney stones HEENT: None, Macular degeneration Psych: Depression Musculoskeletal: Osteoarthritis, Chronic back pain Derm: None - Past Surgical History Past Surgical History: No General: Hiatal hernia repair Ortho: Knee replacement HEENT: Cataracts, Detached retina repair, Other - Present Medications Home Medications: Ambulatory Orders Medication Instructions Recorded Confirmed HYDROcod/ACETAM 5/325 [Vicodin 1 tab PO PRN PRN 09/22/15 10/20/17 5/325] PARoxetine [Paxil] 30 mg PO DAILY 09/22/15 10/20/17 Propranolol ER [Inderal LA] 60 mg PO DAILY 09/22/15 10/20/17 Tiotropium [Spiriva] 1 puffs INH DAILY 09/22/15 10/20/17 Albuterol Sulfate [Proair Hfa 2 puffs INH Q4H PRN 10/20/17 10/20/17 Inhaler] Cyanocobalamin (Vitamin B-12) 2,000 mcg PO DAILY 10/20/17 10/20/17 [Vitamin B-12] Memantine [Namenda] 10 mg PO BID 10/20/17 10/20/17 Cefdinir 300 mg PO BID #10 capsule 11/17/18 - Allergies Allergies/Adverse Reactions: Allergies Allergy/AdvReac Type Severity Reaction Status Date / Time ibuprofen [From Motrin] Allergy Unknown Verified 11/17/18 12:45 Penicillins AdvReac Intermediate Hives Verified 11/17/18 12:45 - Social History Does the pt smoke?: No Smoking Status: Never smoker Does the pt drink ETOH?: No Does the pt have substance abuse?: No - Immunizations Immunizations are current?: Yes PD ED PE NORMAL - Vitals Vital signs reviewed: Yes - General General: Alert and oriented X 3, No acute distress - HEENT HEENT: Moist mucous membranes - Neck Neck: Supple, no meningeal sign - Cardiac Cardiac: RRR - Respiratory Respiratory: No respiratory distress, Clear bilaterally - Abdomen Abdomen: Soft, Non tender, Non distended - Derm Derm: Warm and dry - Extremities Extremities: No edema - Neuro Neuro: Alert and oriented X 3 - Psych Psych: Normal mood, Normal affect Results - Vitals Vitals: Vital Signs - 24 hr 11/17/18 11/17/18 11/17/18 12:45 14:40 15:47 Temperature 36.6 C Heart Rate 77 76 80 Respiratory 16 18 18 Rate Blood Pressure 118/72 144/86 H 134/83 H O2 Saturation 94 98 97 11/17/18 16:02 Temperature 36.7 C Heart Rate 69 Respiratory 18 Rate Blood Pressure 137/83 H O2 Saturation 95 Oxygen O2 Source Room air - Labs Labs: Laboratory Tests 11/17/18 11/17/18 11/17/18 12:53 15:06 15:06 WBC 10.4 RBC 4.33 Hgb 15.0 Hct 45.2 MCV 104.2 H MCH 34.7 H MCHC 33.3 RDW 14.4 Plt Count 210 MPV 9.6 Neut # (Auto) 7.6 H Lymph # (Auto) 1.6 Emmet # (Auto) 0.9 Eos # (Auto) 0.3 Baso # (Auto) 0.1 Absolute Nucleated RBC 0.01 Nucleated RBC % 0.1 Sodium 141 Potassium 4.1 Chloride 102 Carbon Dioxide 28 Anion Gap 11.0 BUN 15 Creatinine 0.6 Estimated GFR (MDRD) 97 Glucose 104 H Calcium 9.2 Total Bilirubin 0.8 AST 21 ALT 19 Alkaline Phosphatase 111 Total Protein 7.4 Albumin 4.0 Globulin 3.4 Albumin/Globulin Ratio 1.2 Lipase 66 H Urine Color YELLOW Urine Clarity CLOUDY Urine pH 5.5 Ur Specific [place] 1.020 Urine Protein TRACE Urine Glucose (UA) 100 H Urine Ketones NEGATIVE Urine Occult Blood SMALL H Urine Nitrite POSITIVE H Urine Bilirubin NEGATIVE Urine Urobilinogen 0.2 (NORMAL) Ur Leukocyte Esterase SMALL H Urine RBC 0-5 Urine WBC 11-25 H Ur Squamous Epith Cells NONE SEEN Urine Bacteria Rare Ur Microscopic Review INDICATED Urine Culture Comments INDICATED - Rads (name of study) CT abd/pelvis Radiology: Prelim report reviewed, EMP read contemporaneously, See rad report (Multiple bilateral nonobstructing kidney stones. No ureter stone or hydronephrosis. Moderate colonic diverticulosis without acute diverticulitis. ) PD MEDICAL DECISION MAKING - ED course Complexity details: reviewed old records, reviewed results, re-evaluated patient, considered differential, d/w patient ED course: 78-year-old female with what appears to be a UTI. No evidence of ureteral stone. She is well-appearing, nontoxic. Afebrile. No evidence of pyelonephritis. Will place on antibiotics and follow-up with her doctor. Patient counseled regarding signs and symptoms for which I believe and urgent re-evaluation would be necessary. Patient with good understanding of and agree ment to plan and is comfortable going home at this time This document was made in part using voice recognition software. While efforts are made to proofread this document, sound alike and grammatical errors may occur. Departure - Departure Disposition: 01 Home, Self Care Clinical Impression: UTI (urinary tract infection) Qualifiers: Urinary tract infection type: acute cystitis Hematuria presence: without hematuria Qualified Code(s): N30.00 - Acute cystitis without hematuria Condition: Good Instructions: ED UTI Cystitis Female Follow-Up: Shruti Zamudio MD [Primary Care Provider] - Within 1 week (if not better) Prescriptions: Cefdinir 300 mg PO BID #10 capsule Comments: Take all antibiotics until gone. Return if you worsen. Follow-up with your doctor for further care. Return especially for fevers or worsening pain. Discharge Date/Time: 11/17/18 16:08
[2018-11-17 15:11] LABS: BASOPHILS # (AUTO) 0.1 10^3/uL (0.0-0.1); BASOPHILS % (AUTO) 0.9 %; EOSINOPHILS # (AUTO) 0.3 10^3/uL (0.0-0.7); EOSINOPHILS % (AUTO) 2.7 %; LYMPHOCYTES # (AUTO) 1.6 10^3/uL (1.5-3.5); LYMPHOCYTES % (AUTO) 14.8 %; MEAN CORPUSCULAR HEMOGLOBIN 34.7 pg (27.0-31.0); MEAN CORPUSCULAR HGB CONC 33.3 g/dL (32.0-36.0); MEAN CORPUSCULAR VOLUME 104.2 fL (81.0-99.0); MEAN PLATELET VOLUME 9.6 fL (7.9-10.8); MONOCYTES # (AUTO) 0.9 10^3/uL (0.0-1.0); MONOCYTES % (AUTO) 8.7 %; NEUTROPHILS # (AUTO) 7.6 10^3/uL (1.5-6.6); NEUTROPHILS % (AUTO) 72.9 %; PLT - PLATELET COUNT 210 10^3/uL (130-450); RED BLOOD COUNT 4.33 10^6/uL (4.20-5.40); RED CELL DISTRIBUTION WIDTH 14.4 % (12.0-15.0); WHITE BLOOD COUNT 10.4 x10^3/uL (4.8-10.8)
[2018-11-17 15:25] LABS: ALBUMIN/GLOBULIN RATIO 1.2 (1.0-2.2); BILIRUBIN,TOTAL 0.8 mg/dL (0.2-1.0); CALCIUM 9.2 mg/dL (8.5-10.3); CREATININE 0.6 mg/dL (0.4-1.0); TOTAL PROTEIN 7.4 g/dL (6.7-8.2)
--- NOTE | 2018-11-17 15:45 | CT Report ---
Reason: R flank pain, h/o ureteral stones Procedure Date: 11/17/2018 Accession Number: [id number] / [id number] Procedure: CT - Abdomen/Pelvis WO CPT Code: FULL RESULT: EXAM: CT ABDOMEN AND PELVIS (CT KUB) EXAM DATE: 11/17/2018 02:53 PM. CLINICAL HISTORY: R flank pain, h/o ureteral stones. COMPARISONS: ABDOMEN/PELVIS W/O 08/28/2018 5:45 PM. TECHNIQUE: Routine axial helical CT imaging was performed through the abdomen and pelvis without IV contrast. Reconstructions: Coronal and sagittal. In accordance with CT protocol optimization, one or more of the following dose reduction techniques were utilized for this exam: automated exposure control, adjustment of mA and/or KV based on patient size, or use of iterative reconstructive technique. FINDINGS: Lung Bases: Unremarkable. Right Kidney/Ureter: There are multiple nonobstructing right kidney stones. There are more than 20 stones measuring between 1 mm and 5 mm in diameter. No ureter stone. No focal renal contour abnormality. Left Kidney/Ureter: There are multiple left kidney stones. The largest stone measures 8 mm in diameter. There is an upper pole cortical cyst measuring 30 mm. There is a midpole parapelvic cyst measuring 22 mm in diameter. There is no ureter stone or hydronephrosis. Other Solid Organs: Liver parenchyma is low in density. Spleen, pancreas, adrenal glands appear unremarkable. Gallbladder/Bile Ducts: Unremarkable. Peritoneal Cavity: Appendix appears normal. No dilated bowel loops. There are a moderate number of diverticula in the left colon. Pelvic Organs: Urinary bladder is unremarkable. No abnormal pelvic fluid collection. Vasculature: There is moderate calcification of the abdominal aorta. Other: None. IMPRESSION: 1. Multiple bilateral nonobstructing kidney stones. 2. No ureter stone or hydronephrosis. 3. Moderate colonic diverticulosis without acute diverticulitis. RADIA
[2018-11-17 16:04] VITALS: BP 137/83
== END 2018-11-17 16:08 | disposition home or self-care (01) ==
LOC: ED 12:13
DX: N30.00 Acute cystitis without hematuria (principal); Z96.659 Presence of unspecified artificial knee joint
CPT/HCPCS: 36415; 74176; 80053; 81001; 81003; 83690; 85025; 87086; 87181; 99283; 99284

== ENCOUNTER 2018-12-20 08:00 | Outpatient (CLI) | payer MEDICARE, OTHER ==
[2018-12-20 19:56] LABS: BASOPHILS % (AUTO) 0.6 %; EOSINOPHILS # (AUTO) 0.3 10^3/uL (0.0-0.7); EOSINOPHILS % (AUTO) 5.1 %; HGB - HEMOGLOBIN 14.7 g/dL (12.0-16.0); LYMPHOCYTES # (AUTO) 1.9 10^3/uL (1.5-3.5); LYMPHOCYTES % (AUTO) 28.7 %; MEAN CORPUSCULAR HEMOGLOBIN 34.4 pg (27.0-31.0); MEAN CORPUSCULAR HGB CONC 33.2 g/dL (32.0-36.0); MEAN CORPUSCULAR VOLUME 103.8 fL (81.0-99.0); MEAN PLATELET VOLUME 10.6 fL (7.9-10.8); MONOCYTES # (AUTO) 0.5 10^3/uL (0.0-1.0); MONOCYTES % (AUTO) 6.8 %; NEUTROPHILS # (AUTO) 3.9 10^3/uL (1.5-6.6); NEUTROPHILS % (AUTO) 58.8 %; PLT - PLATELET COUNT 265 10^3/uL (130-450); RED BLOOD COUNT 4.25 10^6/uL (4.20-5.40); RED CELL DISTRIBUTION WIDTH 14.2 % (12.0-15.0); WHITE BLOOD COUNT 6.7 x10^3/uL (4.8-10.8)
[2018-12-22 14:20] LABS: ANA SCREEN NEGATIVE (NEGATIVE)
== END 2018-12-20 23:59 ==
LOC: LAB.WCP 08:00
PROVIDERS: ATTEND Internal Medicine Rheumatology
DX: R70.0 Elevated erythrocyte sedimentation rate (principal); M31.6 Other giant cell arteritis
CPT/HCPCS: 36415; 85025; 85651; 86038; 86140

== ENCOUNTER 2019-01-02 08:00 | Outpatient (CLI) | payer MEDICARE, OTHER | END 2019-01-02 23:59 | disposition home or self-care (01) | LOC: LAB.WCP 08:00 | PROVIDERS: ATTEND Family Medicine | DX: M31.6 Other giant cell arteritis (principal) | CPT/HCPCS: 36415; 85651; 86140 ==

== ENCOUNTER 2019-01-18 11:14 | Outpatient (CLI) | payer MEDICARE, OTHER ==
[2019-01-18 19:01] LABS: CALCIUM 9.1 mg/dL (8.5-10.3); CREATININE 0.8 mg/dL (0.4-1.0)
== END 2019-01-18 11:15 | disposition home or self-care (01) ==
LOC: LAB.WCP 11:14
PROVIDERS: ATTEND Family Medicine
DX: I10 Essential (primary) hypertension (principal); M31.6 Other giant cell arteritis
CPT/HCPCS: 36415; 80048; 85651; 86140

== ENCOUNTER 2019-01-30 09:12 | Outpatient (CLI) | payer MEDICARE, OTHER ==
[2019-01-30 14:31] LABS: CREATININE 0.8 mg/dL (0.4-1.0)
== END 2019-01-30 09:13 | disposition home or self-care (01) ==
LOC: LAB.WCP 09:12
PROVIDERS: ATTEND Internal Medicine Rheumatology
DX: M31.6 Other giant cell arteritis (principal)
CPT/HCPCS: 36415; 82565; 82947; 85651

== ENCOUNTER 2019-03-27 10:46 | Outpatient (CLI) | payer MEDICARE, OTHER | END 2019-03-27 23:59 | disposition home or self-care (01) | LOC: LAB.WCP 10:46 | PROVIDERS: ATTEND Internal Medicine Rheumatology | DX: M31.6 Other giant cell arteritis (principal) | CPT/HCPCS: 36415; 85651; 86140 ==

== ENCOUNTER 2019-04-04 10:48 | Outpatient (CLI) | payer MEDICARE, OTHER ==
--- NOTE | 2019-04-04 15:17 | XRAY Report ---
Reason: PNEUMONIA Procedure Date: 04/04/2019 Accession Number: [id number] / [id number] Procedure: WCP - Chest 2 View X-Ray CPT Code: 43142 FULL RESULT: EXAM: CHEST RADIOGRAPHY. EXAM DATE: 04/04/2019 11:02 AM. CLINICAL HISTORY: Pneumonia. COMPARISON: CHEST 2 VIEW PA/LAT 06/13/2018 11:33 AM. TECHNIQUE: 2 views. FINDINGS: Lungs/Pleura: Persistent subtle increase in pulmonary markings in the lingula distribution, not significantly different from prior. Otherwise no consolidation is detected. Pleural spaces are clear. Mediastinum: Stable cardiomediastinal silhouette with calcifications of the aortic arch, not enlarged. Other: None. IMPRESSION: Similar increased pulmonary markings in the lingula when compared to 2018, early airspace disease in this area is difficult to exclude. RADIA
== END 2019-04-04 10:49 | disposition home or self-care (01) ==
LOC: DI.WCP 10:48
PROVIDERS: ATTEND Family Medicine
DX: J18.9 Pneumonia, unspecified organism (principal)
CPT/HCPCS: 71046

== ENCOUNTER 2019-04-12 12:49 | Outpatient (CLI) | payer MEDICARE, OTHER ==
--- NOTE | 2019-04-12 14:39 | CT Report ---
Reason: SHORTNESS OF BREATH, PNEUMONIA Procedure Date: 04/12/2019 Accession Number: [id number] / [id number] Procedure: CT - CHEST WO CPT Code: FULL RESULT: EXAM: CT CHEST EXAM DATE: 04/12/2019 01:06 PM. CLINICAL HISTORY: SHORTNESS OF BREATH, PNEUMONIA. COMPARISONS: CHEST 2 VIEW 04/04/2019 10:44 AM CHEST W/O 10/20/2015 1:00 PM. TECHNIQUE: Routine helical CT imaging was performed through the chest. IV contrast: None. Reconstructions: Coronal and sagittal. In accordance with CT protocol optimization, one or more of the following dose reduction techniques were utilized for this exam: automated exposure control, adjustment of mA and/or KV based on patient size, or use of iterative reconstructive technique. FINDINGS: Lungs/Pleura: There is moderate upper lobe predominant centrilobular emphysema. No airspace consolidation or evidence of pneumonia. No significant bronchial wall thickening or mucous plugging. Mild biapical pleural parenchymal scarring. No mass. Scattered tiny subpleural nodules are similar to prior. Mediastinum: The heart is normal in size. There is no mediastinal or hilar lymphadenopathy. Mild aortic arch calcification. Bones: Unremarkable. Visualized Abdomen: Surgical changes from Juan Carlos fundoplication at the gastroesophageal junction. Multiple small consultations/stones about the visualized renal collecting systems. There is a superior pole left renal cyst. Other: There is a 2.0 x 1.8 cm nodule in the superior right breast (image 35 series 3). IMPRESSION: 1. No evidence of pneumonia or other acute process. Emphysema. 2. Nonspecific 2.0 cm right breast nodule, appears new since 2016. This can be correlated with mammography. RADIA
== END 2019-04-12 12:50 | disposition home or self-care (01) ==
LOC: DI 12:49
PROVIDERS: ATTEND Family Medicine
DX: J43.9 Emphysema, unspecified (principal); R06.02 Shortness of breath; J18.9 Pneumonia, unspecified organism; N63.10 Unspecified lump in the right breast, unspecified quadrant; R35.0 Frequency of micturition
CPT/HCPCS: 36415; 71250; 80053; 81002; 85025; 87086

== ENCOUNTER 2019-04-26 10:56 | Outpatient (CLI) | payer MEDICARE, OTHER ==
--- NOTE | 2019-04-26 16:37 | Mammography Report ---
Reason: RT BREAST MASS Procedure Date: 04/26/2019 Accession Number: [id number] / [id number] Procedure: TOBIAS - Diagnostic Dig Bilat CPT Code: FULL RESULT: EXAM: Diagnostic Dig Bilat DATE: 04/26/2019 12:04 PM CLINICAL HISTORY: Right breast mass, palpable lump. Diagnostic examination. TECHNIQUE: (B) - Bilateral CC and MLO views were obtained. Right spot CC and bilateral ML images are obtained. Focused right breast ultrasound is performed. COMPARISON: None PARENCHYMAL PATTERN: (A) - The breast(s) demonstrate(s) scattered fibroglandular densities. FINDINGS: In the right upper central breast at the 12:00 position is a hyperdense irregular mass which measures 2.4 x 1.7 cm and is also demonstrated by ultrasound weight is ill-defined hypoechoic with shadowing and taller than wide. There are no suspicious masses, calcifications, or areas of distortion in the left breast. IMPRESSION: Highly suggestive for malignancy. BI-RADS category 5. RECOMMENDATION: (BIOPSY) - ultrasound-guided right breast. BI-RADS CATEGORY: (5) - Highly suggestive for malignancy. STANDARD QUALIFYING STATEMENTS: 1. This examination was not reviewed with the aid of Computer-Aided Detection (CAD). 2. A negative or benign imaging report should not preclude biopsy if clinically suspicious findings are present. 3. Dense breasts may obscure an underlying neoplasm. 4. This examination was reviewed with the aid of 3D breast imaging (tomosynthesis).
== END 2019-04-26 10:57 | disposition home or self-care (01) ==
LOC: DI 10:56
PROVIDERS: ATTEND Family Medicine
DX: R92.8 Other abnormal and inconclusive findings on diagnostic imaging of breast (principal)
CPT/HCPCS: 76642; 77066

== ENCOUNTER 2019-04-26 10:57 | Outpatient (CLI) | payer MEDICARE, OTHER ==
[2019-04-26] MEDS ORDERED: REGADENOSON 0.4 MG/5 ML SYRINGE IVP ONE ×2 (14:33→17:06)
[2019-04-26] MEDS ORDERED: AMINOPHYLLINE 250 MG/10 ML VIAL ONE (14:33)
--- NOTE | 2019-04-26 16:23 | CARDIAC PROCEDURE NOTE ---
DATE OF SERVICE: 04/26/2019 Physician: Shelby Whiteside MD, [facility] INDICATIONS 1. Shortness of breath. 2. Abnormal EKG 3. Hypertension. DESCRIPTION OF PROCEDURE: After signing informed consent, patient underwent a Lexiscan pharmaceutical stress test with nuclear myocardial perfusion imaging. RESTING HEART RATE: 56. PEAK HEART RATE: 68. RESTING BLOOD PRESSURE: 116/69. PEAK BLOOD PRESSURE: 101/60. Lexiscan was infused per protocol. The patient had brief flushing and shortness of breath, which lasted less than a minute. Oxygen saturation was 94% on room air. She described no chest pain. RESTING EKG: Normal sinus rhythm, rate 54, left atrial enlargement, low voltage EKG. EKG AT PEAK: No new ST-segment or T-wave changes. SUMMARY 1. Abnormal resting EKG. 2. No ischemic changes by EKG criteria on this pharmaceutical stress test. 3. Nuclear images reported separately. cc: Shruti Zamudio DO TD: 04/26/2019 16:13 MTDD
--- NOTE | 2019-04-27 10:04 | Nuclear Medicine Report ---
Reason: SOB, ABNORMAL EKG, HTN Procedure Date: 04/26/2019 Accession Number: [id number] / [id number] Procedure: NM - Myocardial Perfusion STR/RST CPT Code: FULL RESULT: EXAM: SINGLE-ISOTOPE PHARMACOLOGICAL STRESS TEST WITH REGADENOSON. SINGLE-ISOTOPE AND ONE-DAY REST/STRESS MYOCARDIAL PERFUSION SCANS WITH TOMOGRAPHIC IMAGING, QUANTITATIVE ANALYSIS, WALL MOTION ANALYSIS AND CALCULATION OF EJECTION FRACTION. EXAM DATE: 04/26/2019 05:08 PM. CLINICAL HISTORY: SOB, ABNORMAL EKG, HTN. COMPARISON: Nael. TECHNIQUE: After the intravenous administration of 9.3 mCi of Tc-99m sestamibi, a rest myocardial perfusion scan was done with tomography. Motion correction was applied when appropriate. After an appropriate delay, pharmacological stress was performed with the infusion of 0.4 mg regadenoson per protocol. According to protocol, 43.4 mCi of Tc-99m sestamibi was injected for stress myocardial perfusion scan. Motion correction was applied when appropriate. Gated tomographic images were obtained for wall motion analysis and computation of left ventricular ejection fraction. FINDINGS: On visual analysis, there is an apparent defect in mid to distal anteroseptal wall which is larger and more severe on the rest images compared to the stress images. This is a pattern consistent with breast attenuation artifact. No convincing significant fixed or reversible perfusion defects. Computer analysis. Summed stress score 3 Summed difference score 2 Summed difference score 1 Wall motion analysis demonstrates no focal wall motion abnormality. The left ventricular end-diastolic volume is 37 cc. The left ventricular end-systolic volume is 1 cc. The left ventricular ejection fraction is calculated to be 98%. IMPRESSION: 1. On visual analysis, no convincing significant fixed or reversible perfusion defects. 2. Left ventricular ejection fraction of >65%. 3. Normal segmental and global wall motion. 4. Normal left ventricular cavity size, no change with stress. 5. On computer analysis, normal study with no ischemia. Please correlate findings with stress ECG tracings and procedure notes. RADIA
== END 2019-04-26 10:58 | disposition home or self-care (01) ==
LOC: DI 10:57
PROVIDERS: ATTEND Family Medicine
DX: R06.02 Shortness of breath (principal); R94.31 Abnormal electrocardiogram [ECG] [EKG]; I10 Essential (primary) hypertension; R92.8 Other abnormal and inconclusive findings on diagnostic imaging of breast
CPT/HCPCS: 76642; 77066; 78452; 93016; 93017; 93018; A9500; J2785

== ENCOUNTER 2019-05-07 11:36 | Outpatient (CLI) | payer MEDICARE, OTHER ==
[~2019-05-07 11:36] MED LIST: BUFFERED LIDOCAINE 10 ML SYRINGE ONE; BUPIVACAINE 0.5%-EPI 1:200000 PF 10 ML VIAL ONE
[2019-05-07] MEDS ORDERED: BUFFERED LIDOCAINE 10 ML SYRINGE IU ONE (16:15)
--- NOTE | 2019-05-07 17:10 | Mammography Report ---
Reason: S/P U/S GUIDED BX Procedure Date: 05/07/2019 Accession Number: [id number] / [id number] Procedure: TOBIAS - Diagnostic Dig RT CPT Code: FULL RESULT: PROCEDURE: Ultrasound-guided needle biopsy right breast mass. CLINICAL DATA: Targeted mass measuring 2.4 cm with irregular margins in the 11 o'clock axis of the right breast. Note: Prior to biopsy procedure, the right axilla was evaluated by ultrasound by the radiologist. Only normal morphology lymph nodes are noted. Informed consent was obtained. Using standard aseptic technique, both 1% buffered lidocaine and Sensorcaine were injected into the right breast for local anesthesia. A small steven was made in the skin with a #11 blade. A 14-gauge achieve needle system was used to obtain 3 specimens. A specialized biopsy marker clip was placed into the biopsy cavity under ultrasound guidance. The patient was taken to separate mammography machine and a two-view digital mammography was performed to verify the clip placement and any complications. The mammography showed clip to be within the mass.. The wound was dressed and ice applied. The patient was observed for approximately 15 minutes, then was discharged from diagnostic imaging Department in good condition following instructions on wound care and obtaining biopsy results. The patient is scheduled to receive the biopsy results from the referring physician. The tissue was sent for histologic analysis. IMPRESSION: Successful ultrasound-guided biopsy of the right breast. AN ADDENDUM WILL REMAIN TO THIS REPORT WHEN PATHOLOGY IS REVIEWED TO ESTABLISH CONCORDANCE.
== END 2019-05-07 11:37 | disposition home or self-care (01) ==
LOC: DI 11:36
PROVIDERS: ATTEND Family Medicine
DX: C50.411 Malignant neoplasm of upper-outer quadrant of right female breast (principal); Z17.0 Estrogen receptor positive status [ER+]
CPT/HCPCS: 19083

== ENCOUNTER 2019-06-25 15:30 | Outpatient (CLI) | payer MEDICARE, OTHER | END 2019-06-26 23:59 | disposition home or self-care (01) | LOC: LAB.R 15:30 | PROVIDERS: ATTEND Family Medicine | DX: N39.0 Urinary tract infection, site not specified (principal) | CPT/HCPCS: 81001; 81003; 87077; 87086; 87181 ==

== ENCOUNTER 2019-07-26 09:00 | Outpatient (CLI) | payer MEDICARE, OTHER | END 2019-07-26 23:59 | disposition home or self-care (01) | LOC: LAB.R 09:00 | PROVIDERS: ATTEND Family Medicine | DX: N39.0 Urinary tract infection, site not specified (principal) | CPT/HCPCS: 87077; 87086; 87181 ==

== ENCOUNTER 2020-02-13 11:34 | Outpatient (CLI) | payer MEDICARE, OTHER | END 2020-02-13 23:59 | disposition home or self-care (01) | LOC: LAB.R 11:34 | PROVIDERS: ATTEND Family Medicine | DX: N39.0 Urinary tract infection, site not specified (principal) | CPT/HCPCS: 87077; 87086; 87181 ==

== ENCOUNTER 2020-02-21 08:41 | Outpatient (CLI) | payer MEDICARE, OTHER ==
--- NOTE | 2020-02-21 13:32 | Nuclear Medicine Report ---
Reason: BONE PAIN, RT BREAST CA Procedure Date: 02/21/2020 Accession Number: [id number] / [id number] Procedure: NM - Bone Whole Body CPT Code: Final Report FULL RESULT: PROCEDURE: Bone Whole Body INDICATIONS: BONE PAIN, RT BREAST CA RADIOPHARMACEUTICAL: 31.7 mCi Tc-99m MDP i.v. TECHNIQUE: Delayed whole-body scintigrams were obtained approximately 2 hours after intravenous injection of Tc-99m MDP. Additional left and right oblique views of the head and neck were obtained. COMPARISON: Prior CT of the chest 04/12/2019 and prior abdomen/pelvis CT 11/17/2018. FINDINGS: There is near normal for age distribution of activity throughout the skeleton, including the skull, sternum, scapulas, ribs, spine, bony pelvis, and shafts of the long bones except for presence of focal increased uptake at the lateral aspect of the lower right ribs involving a single rib, which appears to be rib 8 exactly at the mid axillary line. There is normal skeletal to soft tissue activity ratio, but there is abnormal renal uptake and excretion of tracer with an appearance of hydronephrosis on the right. IMPRESSION: 1. Unexpected finding of right-sided moderately severe hydronephrosis, a finding not present on comparison noncontrast CT scanning of the chest and abdomen/pelvis in March and November of last year. Recommend sonographic follow-up and it will also be likely necessary to perform CT scanning with and without contrast in this clinical circumstance. 2. Focal increased isotope uptake is present within the lateral right eighth rib. The patient reported to the technologist that she had suffered injury in this area from a fall. Please correlate clinically for whether there has been a documented fracture in this area. Reviewed by: Tanmay Villatoro MD on 02/21/2020 1:30 PM PDT Approved by: Tanmay Villatoro MD on 02/21/2020 1:30 PM PDT Station ID: [id number]
== END 2020-02-21 08:42 | disposition home or self-care (01) ==
LOC: DI 08:41
PROVIDERS: ATTEND Family Medicine
DX: N13.30 Unspecified hydronephrosis (principal); R93.7 Abnormal findings on diagnostic imaging of other parts of musculoskeletal system; M89.8X9 Other specified disorders of bone, unspecified site; C50.919 Malignant neoplasm of unspecified site of unspecified female breast
CPT/HCPCS: 78306; A9503

== ENCOUNTER 2020-03-06 12:33 | Outpatient (CLI) | payer MEDICARE, OTHER ==
[2020-03-06 12:41] LABS: CREATININE 0.8 mg/dL (0.4-1.0)
[2020-03-06] MEDS ORDERED: IOVERSOL 320 100 ML VIAL IVP ONE ×2 (12:41→17:01)
--- NOTE | 2020-03-06 17:17 | CT Report ---
PROCEDURE: ABDOMEN/PELVIS W/WO INDICATIONS: HYDRONEPHROSIS,RT BREAST CANCER CONTRAST: IV CONTRAST: Optiray 320 ml: 140 PO CONTRAST: *NO PO CONTRAST TECHNIQUE: After the administration of intravenous contrast, 5 mm thick sections acquired from the diaphragms to the symphysis. 5 mm thick coronal and sagittal reformats were acquired. For radiation dose reducti on, the following was used: automated exposure control, adjustment of mA and/or kV according to macy ent size. COMPARISON: Prior noncontrast CT dated 11/17/2018 reviewed. That study had shown multiple bilateral no nobstructive renal collecting system calculi. FINDINGS: Image quality: Excellent. Lung bases: Lung bases are clear. Heart size is normal. Urinary system: Both kidneys are normal in size, and the left kidney is free of hydronephrosis. In c ontrast the right kidney is moderately hydronephrotic, associated with presence of a 7 mm in maximal dimension 710 Houn[address] unit calculus at the ureteral pelvic junction. There also is bilateral stabl e appearing nephrolithiasis on pre-contrast images. The calculi within the collecting system of each kidney range in size from 2 mm to 6 mm. None of these are obstructive. No perinephric fat stranding . There is normal bilateral renal enhancement. Renal calyces appear normal in morphology when fille d with contrast. Opacified portions of the left ureter demonstrates normal caliber. Bladder wall th ickness is normal. No calcified bladder stones. Other solid organs: Liver and spleen are normal in size and enhancement. Gallbladder appears normal Biliary system is non dilated. Pancreas enhances normally. No adrenal nodules. Peritoneum and bowel: Bowel loops demonstrate normal wall thickness and caliber. No free fluid or a ir. Nodes and vessels: No retroperitoneal or mesenteric adenopathy by size criteria. Aorta and inferior vena cava are normal in size. Abdominal wall: No ventral hernias. Pelvis: No pathologic free pelvic fluid. No inguinal hernias or adenopathy. Bones: No suspicious bony lesions. No vertebral body compression fractures. IMPRESSION: 1. A 7 mm calculus at the ureteropelvic junction on the right produces moderate right hydronephrosis and there also are bilateral collecting system calculi ranging from 2 to 6 mm which are nonobstructiv e. 2. There is no sign of underlying neoplasm. The calculi within the collecting system of each kidney a ppear little if any changed from the comparison CT in November 2018. Reviewed by: Tanmay Villatoro MD on 03/06/2020 4:15 PM [facility] Approved by: Tanmay Villatoro MD on 03/06/2020 4:15 PM [facility] Station ID: [id number]
== END 2020-03-06 12:34 | disposition home or self-care (01) ==
LOC: DI 12:33
PROVIDERS: ATTEND Family Medicine
DX: N13.2 Hydronephrosis with renal and ureteral calculous obstruction (principal); C50.911 Malignant neoplasm of unspecified site of right female breast
CPT/HCPCS: 36415; 74178; 82565; Q9967

== ENCOUNTER 2020-08-30 02:44 | Emergency (ER) | payer MEDICARE, OTHER ==
--- NOTE | 2020-08-30 02:56 | ED Physician Documentation ---
History of Present Illness - Stated complaint Stated Complaint: BACK PAIN/ABD PAIN, CONFUSION, SOA - Chief complaint Chief Complaint: General - History obtained from History obtained from: Patient - History of Present Illness Timing: Yesterday Pain level now: 3 (back pain) Improved by: rest Worsened by: ambulation Associated symptoms: generalized weakness, dyspnea, back and abdominal pain - Additonal information Additional information: BIBA. patient c/o generalized weakness, dyspnea, back pain (bilaterally and "entire back", per patient), and abdominal pain that is most pronounced across lower abdomen and L>R. Symptoms started yesterday. Reportedly having some confusion as well per medics; this is based on police being called earlier today when patient told them she suspected her neighbors were installing wiring in her leslie and ceiling. Review of Systems Constitutional: denies: Fever, Chills, Sweats Eyes: reports: Reviewed and negative Ears: reports: Reviewed and negative Nose: reports: Reviewed and negative Throat: reports: Reviewed and negative Cardiac: reports: Reviewed and negative Respiratory: reports: Dyspnea. denies: Cough GI: reports: Abdominal Pain. denies: Nausea, Vomiting, Constipation, Diarrhea : denies: Dysuria, Frequency Musculoskeletal: reports: Back pain Neurologic: reports: Generalized weakness PD PAST MEDICAL HISTORY - Past Medical History Cardiovascular: None Respiratory: COPD GI: Hiatal hernia, Chronic diarrhea : Kidney stones HEENT: None, Macular degeneration Psych: Depression Musculoskeletal: Osteoarthritis, Chronic back pain Derm: None - Past Surgical History Past Surgical History: No General: Hiatal hernia repair Ortho: Knee replacement HEENT: Cataracts, Detached retina repair, Other - Present Medications Home Medications: Ambulatory Orders Medication Instructions Recorded Confirmed HYDROcod/ACETAM 5/325 [Vicodin 1 tab PO PRN PRN 09/22/15 08/30/20 5/325] PARoxetine [Paxil] 30 mg PO DAILY 09/22/15 08/30/20 Propranolol ER [Inderal LA] 60 mg PO DAILY 09/22/15 08/30/20 Albuterol Sulfate [Proair Hfa 2 puffs INH Q4H PRN 10/20/17 07/10/19 Inhaler] Memantine [Namenda] 10 mg PO BID 10/20/17 07/10/19 - Allergies Allergies/Adverse Reactions: Allergies Allergy/AdvReac Type Severity Reaction Status Date / Time ibuprofen [From Motrin] Allergy Unknown Verified 08/30/20 02:50 Penicillins AdvReac Intermediate Hives Verified 08/30/20 02:50 - Social History Does the pt smoke?: No Smoking Status: Never smoker Does the pt drink ETOH?: No Does the pt have substance abuse?: No - Immunizations Immunizations are current?: Yes PD ED PE NORMAL - Vitals Vital signs reviewed: Yes - General General: Alert and oriented X 3, No acute distress, Well developed/nourished - HEENT HEENT: Moist mucous membranes - Neck Neck: Supple, no meningeal sign - Cardiac Cardiac: RRR, No murmur - Respiratory Respiratory: No respiratory distress, Clear bilaterally - Abdomen Abdomen: Soft, Non distended, Other (mild TTP across lower abdomen, greatest in LLQ without rebound or guarding) - Back Back: No CVA TTP - Derm Derm: Normal color, Warm and dry - Extremities Extremities: No edema Results - Vitals Vitals: Vital Signs - 24 hr 08/30/20 08/30/20 08/30/20 02:50 02:54 05:08 Temperature 36.1 C L 36.1 C L Heart Rate 88 88 79 Respiratory 17 17 Rate Blood Pressure 128/71 128/71 113/60 O2 Saturation 96 96 95 08/30/20 08/30/20 08/30/20 06:26 07:00 09:00 Temperature 36.3 C L Heart Rate 72 84 93 Respiratory 16 16 18 Rate Blood Pressure 112/62 119/65 96/59 L O2 Saturation 98 98 97 08/30/20 09:30 Temperature 36.6 C Heart Rate 91 Respiratory 18 Rate Blood Pressure 117/69 O2 Saturation 97 Oxygen O2 Source Room air - Labs Labs: Laboratory Tests 08/30/20 08/30/20 08/30/20 03:07 03:07 03:07 WBC 12.3 H RBC 4.18 L Hgb 14.3 Hct 43.2 MCV 103.3 H MCH 34.2 H MCHC 33.1 RDW 12.6 Plt Count 238 MPV 11.3 H Neut # (Auto) 9.4 H Lymph # (Auto) 1.0 L [place] # (Auto) 1.6 H Eos # (Auto) 0.2 Baso # (Auto) 0.1 Absolute Nucleated RBC 0.00 Nucleated RBC % 0.0 Sodium 131 L Potassium 2.9 L Chloride 95 L Carbon Dioxide 19 L Anion Gap 17.0 H BUN 23 H Creatinine 1.1 H Estimated GFR (MDRD) 48 L Glucose 111 H Calcium 9.0 Total Bilirubin 1.6 H AST 22 ALT 20 Alkaline Phosphatase 106 Total Protein 7.8 Albumin 3.5 Globulin 4.3 H Albumin/Globulin Ratio 0.8 L Lipase 77 H TSH 4.29 Urine Color Urine Clarity Urine pH Ur Specific [place] Urine Protein Urine Glucose (UA) Urine Ketones Urine Occult Blood Urine Nitrite Urine Bilirubin Urine Urobilinogen Ur Leukocyte Esterase Urine RBC Urine WBC Ur Squamous Epith Cells Urine Bacteria Ur Microscopic Review Urine Culture Comments Urine Opiates Screen Ur Oxycodone Screen Urine Methadone Screen Ur Propoxyphene Screen Ur Barbiturates Screen Ur Tricyclics Screen Ur Phencyclidine Scrn Ur Amphetamine Screen U Methamphetamines Scrn U Benzodiazepines Scrn Urine Cocaine Screen U Cannabinoids Screen Ethyl Alcohol < 5.0 08/30/20 03:20 WBC RBC Hgb Hct MCV MCH MCHC RDW Plt Count MPV Neut # (Auto) Lymph # (Auto) [place] # (Auto) Eos # (Auto) Baso # (Auto) Absolute Nucleated RBC Nucleated RBC % Sodium Potassium Chloride Carbon Dioxide Anion Gap BUN Creatinine Estimated GFR (MDRD) Glucose Calcium Total Bilirubin AST ALT Alkaline Phosphatase Total Protein Albumin Globulin Albumin/Globulin Ratio Lipase TSH Urine Color YELLOW Urine Clarity SL. CLOUDY Urine pH 6.0 Ur Specific [place] 1.015 Urine Protein 100 H Urine Glucose (UA) NEGATIVE Urine Ketones 40 H Urine Occult Blood LARGE H Urine Nitrite NEGATIVE Urine Bilirubin NEGATIVE Urine Urobilinogen 0.2 (NORMAL) Ur Leukocyte Esterase LARGE H Urine RBC 11-25 H Urine WBC >25 H Ur Squamous Epith Cells RARE Squamous Urine Bacteria Moderate H Ur Microscopic Review INDICATED Urine Culture Comments INDICATED Urine Opiates Screen NEGATIVE Ur Oxycodone Screen NEGATIVE Urine Methadone Screen NEGATIVE Ur Propoxyphene Screen NEGATIVE Ur Barbiturates Screen NEGATIVE Ur Tricyclics Screen NEGATIVE Ur Phencyclidine Scrn NEGATIVE Ur Amphetamine Screen NEGATIVE U Methamphetamines Scrn NEGATIVE U Benzodiazepines Scrn NEGATIVE Urine Cocaine Screen NEGATIVE U Cannabinoids Screen NEGATIVE Ethyl Alcohol - Rads (name of study) CT A/P Radiology: Prelim report reviewed, See rad report PD MEDICAL DECISION MAKING - ED course Complexity details: reviewed old records, reviewed results, re-evaluated patient, considered differential, d/w patient ED course: UA is c/w UTI and CT A/P reveals left ureteral calculus 5.5mm with mild hydroneprhosis. I note that she had UTI and ureteral stone in 2018 when she was evaluated in this hospital, admitted but then transferred to urology service at [place]. Patient says she had a stent placed for this. She says she has been seeing a urologist, Dr. Hong, at [facility] but she says she does not want to go back to [facility] is admission is required. She specifically asks about transfer to [facility] in [place]. I d/w the urologist source water protection specialist at [facility] ([facility] working with Dr. Rasmussen); she recommends transfer to hospitalist service. She defers choice/timing of antibiotic to hospitalist. I then d/w Dr. Melo, hospitalist at [facility] who accepts transfer. He requests that blood culture x 2 get drawn prior to transfer. He recommends holding off on antibiotics until she arrives at [facility], as they might want to draw another set of blood cultures at that time. Departure - Departure Disposition: 02 Transfer Acute Care Hosp Clinical Impression: UTI (urinary tract infection), Ureterolithiasis Condition: Stable
[2020-08-30 03:20] LABS: BASOPHILS # (AUTO) 0.1 10^3/uL (0.0-0.1); BASOPHILS % (AUTO) 0.4 %; EOSINOPHILS # (AUTO) 0.2 10^3/uL (0.0-0.7); EOSINOPHILS % (AUTO) 1.2 %; HGB - HEMOGLOBIN 14.3 g/dL (12.0-16.0); LYMPHOCYTES % (AUTO) 8.5 %; MEAN CORPUSCULAR HEMOGLOBIN 34.2 pg (27.0-31.0); MEAN CORPUSCULAR HGB CONC 33.1 g/dL (32.0-36.0); MEAN CORPUSCULAR VOLUME 103.3 fL (81.0-99.0); MEAN PLATELET VOLUME 11.3 fL (7.9-10.8); MONOCYTES # (AUTO) 1.6 10^3/uL (0.0-1.0); MONOCYTES % (AUTO) 12.9 %; NEUTROPHILS # (AUTO) 9.4 10^3/uL (1.5-6.6); NEUTROPHILS % (AUTO) 76.6 %; PLT - PLATELET COUNT 238 10^3/uL (130-450); RED BLOOD COUNT 4.18 10^6/uL (4.20-5.40); RED CELL DISTRIBUTION WIDTH 12.6 % (12.0-15.0); WHITE BLOOD COUNT 12.3 x10^3/uL (4.8-10.8)
[2020-08-30] MEDS ORDERED: IOVERSOL 320 100 ML VIAL IVP ONE ×2 (03:24→04:47)
[2020-08-30 03:29] LABS: ALBUMIN 3.5 g/dL (3.2-5.5); ALBUMIN/GLOBULIN RATIO 0.8 (1.0-2.2); ALKALINE PHOSPHATASE 106 IU/L (42-121); ALT ALANINE AMINOTRANSFERASE 20 IU/L (10-60); AST ASPARTATE AMINOTRANSFERASE 22 IU/L (10-42); BILIRUBIN,TOTAL 1.6 mg/dL (0.2-1.0); BUN - BLOOD UREA NITROGEN 23 mg/dL (6-20); CARBON DIOXIDE - CO2 19 mmol/L (21-32); CHLORIDE 95 mmol/L (101-111); CREATININE 1.1 mg/dL (0.4-1.0); GLUCOSE 111 mg/dL (70-100); LIPASE 77 U/L (22-51); TOTAL PROTEIN 7.8 g/dL (6.7-8.2)
[2020-08-30 03:45] LABS: MUDS CUTOFF CONCENTRATIONS CUTOFF CONC BELOW:
[2020-08-30 03:46] LABS: GLUCOSE, URINE (UA) NEGATIVE (NEGATIVE); KETONES,URINE (UA) 40 mg/dL (NEGATIVE); LEUKOCYTE ESTERASE, URINE LARGE (NEGATIVE); NITRITE,URINE NEGATIVE (NEGATIVE); OCCULT BLOOD,URINE LARGE (NEGATIVE); PROTEIN,URINE 100 mg/dL (NEGATIVE); UROBILINOGEN,URINE 0.2 (NORMAL) E.U./dL (NORMAL)
[2020-08-30 03:52] LABS: BILIRUBIN,URINE NEGATIVE (NEGATIVE); CLARITY,URINE SL. CLOUDY (CLEAR); ICTOTEST,URINE NEGATIVE
[2020-08-30 03:53] LABS: BACTERIA,URINE Moderate /HPF (None Seen); SQUAMOUS EPITHELIAL CELL,UR RARE Squamous (<= Few)
[2020-08-30 03:57] LABS: AMPHETAMINE SCREEN,URINE NEGATIVE (NEGATIVE); BENZODIAZEPINES SCREEN, URINE NEGATIVE (NEGATIVE); COCAINE SCREEN URINE NEGATIVE (NEGATIVE); METHADONE SCREEN, URINE NEGATIVE (NEGATIVE); METHAMPHETAMINES SCREEN, URINE NEGATIVE (NEGATIVE); OPIATE SCREEN, URINE NEGATIVE (NEGATIVE); OXYCODONE SCREEN, URINE NEGATIVE (NEGATIVE); PROPOXYPHENE SCREEN, URINE NEGATIVE (NEGATIVE); TRICYCLIC ANTIDEPRESSANT,URINE NEGATIVE (NEGATIVE)
--- NOTE | 2020-08-30 08:59 | CT Report ---
PROCEDURE: Abdomen/Pelvis W INDICATIONS: abdominal pain, tenderness CONTRAST: IV CONTRAST: Optiray 320 ml: 100 PO CONTRAST: *NO PO CONTRAST TECHNIQUE: After the administration of IV contrast, 5 mm thick sections acquired from the diaphragms to the symp hysis. 5 mm thick coronal and sagittal reformats were acquired. For radiation dose reduction, the f ollowing was used: automated exposure control, adjustment of mA and/or kV according to patient size. COMPARISON: None. FINDINGS: Image quality: Excellent. ABDOMEN: Lung bases: Lung bases are clear. Heart size is normal. Gastric postsurgical changes at the GE jun tion. Solid organs: Hepatic foci statistically representing cysts although technically indeterminate due t o small size. Spleen unremarkable Gallbladder negative Biliary system is non dilated. Pancreas enhances normally. No adrenal nodules . Bilateral nephrolithiasis measuring up to 7 mm on the left and up to 5 mm on the right. Mild left h ydroureteronephrosis related to a distal left ureteral calculus measuring up to 5-6 mm. There is are multiple (approximately 3) 1-2 mm additional calcifications possibly additional distal left ureteral calculi not mentioned on the preliminary study interpretation. Simple appearing left renal cyst Peritoneum and bowel: Bowel loops demonstrate normal wall thickness and caliber. No free fluid or a ir. Nodes and vessels: No retroperitoneal or mesenteric adenopathy by size criteria. Aorta and inferior vena cava are normal in size. Miscellaneous: No ventral hernias. PELVIS: Genitourinary: Bladder wall thickness is normal. Miscellaneous: No inguinal hernias or adenopathy. Bones: No suspicious bony lesions. No vertebral body compression fractures. IMPRESSION: Bilateral nephrolithiasis Mild left hydroureteronephrosis related to a distal left ureter calculus measuring 5-6 mm. Additional lower distal left ureter calculi measuring 1-2 mm as discussed above. Reviewed by: Haider Perez MD on 08/30/2020 8:58 AM PST Approved by: Haider Perez MD on 08/30/2020 8:58 AM PST Station ID: [id number]
[2020-08-30] MEDS ORDERED: SODIUM CHLORIDE 0.9% 1,000 ML IV STA (09:34)
--- NOTE | 2020-08-30 09:41 | XRAY Report ---
PROCEDURE: Chest 2 View X-Ray INDICATIONS: dyspnea TECHNIQUE: 2 view(s) of the chest. COMPARISON: Lung bases on CT abdomen and pelvis 08/30/2020. CT chest 04/12/2019. FINDINGS: Surgical changes and devices: None. Lungs and pleura: No pleural effusions or pneumothorax. Lungs are clear. Emphysematous change. Mediastinum: Mediastinal contours are normal. Heart size is normal. Bones and chest wall: No suspicious bony abnormalities. Soft tissues appear unremarkable. IMPRESSION: No acute cardiopulmonary abnormality. This is concordant with the overnight preliminary interpretation. Reviewed by: Bhargav Mahan MD on 08/30/2020 8:39 AM [facility] Approved by: Bhargav Mahan MD on 08/30/2020 8:39 AM [facility] Station ID: [id number]
[2020-08-30 09:59] LABS: C. PNEUMONIAE- RESP PCR PANEL NOT DETECTED
[2020-08-30 11:17] VITALS: BP 125/104
== END 2020-08-30 11:15 | disposition short-term general hospital (02) ==
LOC: EDUNIT# → ED 02:44
DX: N39.0 Urinary tract infection, site not specified (principal); N13.2 Hydronephrosis with renal and ureteral calculous obstruction; Z20.828 Contact with and (suspected) exposure to other viral communicable diseases
CPT/HCPCS: 36415; 71046; 74177; 80053; 80306; 81001; 83690; 84443; 85025; 87040; 87077; 87086; 87181; 87631; 99284; 99285; Q9967; 0202U; 80320; 81003

== ENCOUNTER 2020-08-30 10:59 | Outpatient (CLI) | payer MEDICARE, OTHER | END 2020-08-30 11:00 | disposition short-term general hospital (02) | LOC: EMS 10:59 | PROVIDERS: ATTEND Surgery | DX: N13.6 Pyonephrosis (principal) | CPT/HCPCS: A0425; A0426 ==

== ENCOUNTER 2020-09-06 07:58 | Outpatient (CLI) | payer MEDICARE, OTHER | END 2020-09-06 07:59 | disposition critical access hospital (66) | LOC: EMS 07:58 | PROVIDERS: ATTEND Surgery | DX: R10.9 Unspecified abdominal pain (principal); R33.9 Retention of urine, unspecified | CPT/HCPCS: A0425; A0429 ==

== ENCOUNTER 2020-09-06 08:16 | Emergency (ER) | payer MEDICARE, OTHER ==
--- NOTE | 2020-09-06 08:28 | ED Physician Documentation ---
PD HPI ABD PAIN - Stated complaint Stated Complaint: AB PX - History obtained from History obtained from: Patient - History of Present Illness Timing - onset: How many days ago (several days of feeling lower abd cramping and feeling of urinary urgency. Recently seen for kidney stone and UTI and was xferred to [place], where stent placed. was to follow up with Urology for removal stent and stone ablation Sep 25.) Timing - duration: Days Timing - details: Waxing and waning Quality: Cramping, Aching. No: Sharp Location: LLQ Radiation: No: Left flank Improved by: No: Eating, Position Worsened by: Moving. No: Eating, Position Associated symptoms: No: Fever, Nausea, Vomiting, Diarrhea Recently seen: Emergency Dept, Admitted ([place] for UTI and stone.) Review of Systems Constitutional: denies: Fever, Chills Nose: denies: Rhinorrhea / runny nose, Congestion Throat: denies: Sore throat Respiratory: denies: Cough GI: reports: Abdominal Pain, Nausea. denies: Abdominal Swelling, Vomiting, Diarrhea : reports: Frequency. denies: Dysuria Skin: denies: Rash, Lesions PD PAST MEDICAL HISTORY - Past Medical History Cardiovascular: None Respiratory: COPD GI: Hiatal hernia, Chronic diarrhea : Kidney stones HEENT: None, Macular degeneration Psych: Depression Musculoskeletal: Osteoarthritis, Chronic back pain Derm: None - Past Surgical History Past Surgical History: No General: Hiatal hernia repair Ortho: Knee replacement HEENT: Cataracts, Detached retina repair, Other - Present Medications Home Medications: Ambulatory Orders Medication Instructions Recorded Confirmed PARoxetine [Paxil] 30 mg PO DAILY 09/22/15 09/06/20 Propranolol ER [Inderal LA] 60 mg PO DAILY 09/22/15 09/06/20 Memantine [Namenda] 10 mg PO BID 10/20/17 09/06/20 Cephalexin [Keflex] 500 mg PO TID #15 capsule 09/06/20 Docusate Sodium [Dok] 100 mg PO DAILY #20 tablet 09/06/20 HYDROcod/ACETAM 5/325 [Talpa 5/325] 1 ea PO Q6H PRN #12 tablet 09/06/20 Phenazopyridine HCl [Pyridium] 100 mg PO TID PRN #15 tablet 09/06/20 - Allergies Allergies/Adverse Reactions: Allergies Allergy/AdvReac Type Severity Reaction Status Date / Time ibuprofen [From Motrin] Allergy Unknown Verified 09/06/20 08:23 Penicillins AdvReac Intermediate Hives Verified 09/06/20 08:23 - Social History Does the pt smoke?: No Smoking Status: Never smoker Does the pt drink ETOH?: No Does the pt have substance abuse?: No - Immunizations Immunizations are current?: Yes PD ED PE NORMAL - Vitals Vital signs reviewed: Yes - General General: Alert and oriented X 3, No acute distress, Well developed/nourished - Cardiac Cardiac: RRR, No murmur - Respiratory Respiratory: Clear bilaterally - Abdomen Abdomen: Normal bowel sounds, Soft, Non distended, No organomegaly, Other (mild tenderness LLQ without guarding. ) - Back Back: No CVA TTP - Derm Derm: Normal color, Warm and dry - Extremities Extremities: No tenderness to palpate, Normal ROM s pain - Neuro Neuro: Alert and oriented X 3, No motor deficit, Normal speech Results - Vitals Vitals: Vital Signs - 24 hr 09/06/20 09/06/20 09/06/20 08:23 08:43 10:35 Temperature 36 C L 37 C 36.8 C Heart Rate 106 H 101 H 101 H Respiratory 18 16 18 Rate Blood Pressure 130/114 H 124/77 141/111 H O2 Saturation 95 95 96 09/06/20 12:13 Temperature 37 C Heart Rate 90 Respiratory 16 Rate Blood Pressure 123/70 O2 Saturation 93 Oxygen O2 Source Room air - Labs Labs: Laboratory Tests 09/06/20 09/06/20 09/06/20 08:40 08:40 09:00 WBC 10.0 RBC 4.40 Hgb 15.1 Hct 46.0 MCV 104.5 H MCH 34.3 H MCHC 32.8 RDW 12.5 Plt Count 393 MPV 10.6 Neut # (Auto) 7.2 H Lymph # (Auto) 1.7 [place] # (Auto) 0.7 Eos # (Auto) 0.2 Baso # (Auto) 0.1 Absolute Nucleated RBC 0.00 Nucleated RBC % 0.0 Sodium 135 Potassium 4.1 Chloride 100 L Carbon Dioxide 18 L Anion Gap 17.0 H BUN 12 Creatinine 1.1 H Estimated GFR (MDRD) 48 L Glucose 109 H Calcium 9.0 Magnesium 2.0 Urine Color YELLOW Urine Clarity HAZY Urine pH 6.0 Ur Specific [place] >=1.030 H Urine Protein 100 H Urine Glucose (UA) NEGATIVE Urine Ketones 15 H Urine Occult Blood LARGE H Urine Nitrite NEGATIVE Urine Bilirubin NEGATIVE Urine Urobilinogen 0.2 (NORMAL) Ur Leukocyte Esterase MODERATE H Urine RBC TNTC H Urine WBC >25 H Ur Squamous Epith Cells RARE Squamous Urine Bacteria Few Ur Microscopic Review INDICATED Urine Culture Comments INDICATED - Rads (name of study) abd CT Radiology: Prelim report reviewed (stent in place. No acute process. ), See rad report PD MEDICAL DECISION MAKING - ED course Complexity details: reviewed results, considered differential, d/w patient, d/w building performance consultant (sales representative publications Urology - symptoms common enough with the stent. ) Departure - Departure Disposition: 01 Home, Self Care Clinical Impression: Lower abdominal pain, S/P ureteral stent placement Condition: Stable Record reviewed to determine appropriate education?: Yes Follow-Up: Shruti Zamudio DO [Primary Care Provider] - FRANC RASMUSSEN MD [Physician No Access] - Prescriptions: Docusate Sodium [Dok] 100 mg PO DAILY #20 tablet Cephalexin [Keflex] 500 mg PO TID #15 capsule HYDROcod/ACETAM 5/325 [Talpa 5/325] 1 ea PO Q6H PRN #12 tablet PRN Reason: Pain Phenazopyridine HCl [Pyridium] 100 mg PO TID PRN #15 tablet PRN Reason: Abdominal Pain Comments: You do seem to be emptying your bladder adequately. The stent appears in proper location without any swelling of the kidney by the CT scan. I talked with the on-call urologist who said your symptoms can relate to irritation from the ureter and since we have excluded other problems, that we can treat the symptoms of this comfortably. He can use phenazopyridine to try to help ureter and bladder discomfort. Tylenol if needed for pain or hydrocodone for worse pain. Use a daily stool softener docusate to ensure no constipation. Discontinue recurrent Bactrim antibiotic and change to cephalexin. There was still some suggestion of mild infection in your urine. Follow-up with Dr. Zamudio this coming week as planned and Dr. Rasmussen the urologist as planned as well. Return if worse. Discharge Date/Time: 09/06/20 12:41
[2020-09-06 08:50] LABS: BASOPHILS # (AUTO) 0.1 10^3/uL (0.0-0.1); BASOPHILS % (AUTO) 0.7 %; EOSINOPHILS # (AUTO) 0.2 10^3/uL (0.0-0.7); EOSINOPHILS % (AUTO) 2.2 %; HGB - HEMOGLOBIN 15.1 g/dL (12.0-16.0); LYMPHOCYTES # (AUTO) 1.7 10^3/uL (1.5-3.5); LYMPHOCYTES % (AUTO) 16.5 %; MEAN CORPUSCULAR HEMOGLOBIN 34.3 pg (27.0-31.0); MEAN CORPUSCULAR HGB CONC 32.8 g/dL (32.0-36.0); MEAN CORPUSCULAR VOLUME 104.5 fL (81.0-99.0); MEAN PLATELET VOLUME 10.6 fL (7.9-10.8); MONOCYTES # (AUTO) 0.7 10^3/uL (0.0-1.0); MONOCYTES % (AUTO) 6.8 %; NEUTROPHILS # (AUTO) 7.2 10^3/uL (1.5-6.6); NEUTROPHILS % (AUTO) 72.6 %; PLT - PLATELET COUNT 393 10^3/uL (130-450); RED CELL DISTRIBUTION WIDTH 12.5 % (12.0-15.0)
[2020-09-06 08:56] LABS: CREATININE 1.1 mg/dL (0.4-1.0)
[2020-09-06 09:19] LABS: GLUCOSE, URINE (UA) NEGATIVE (NEGATIVE); KETONES,URINE (UA) 15 mg/dL (NEGATIVE); LEUKOCYTE ESTERASE, URINE MODERATE (NEGATIVE); NITRITE,URINE NEGATIVE (NEGATIVE); OCCULT BLOOD,URINE LARGE (NEGATIVE); PROTEIN,URINE 100 mg/dL (NEGATIVE); UROBILINOGEN,URINE 0.2 (NORMAL) E.U./dL (NORMAL)
[2020-09-06 09:34] LABS: CLARITY,URINE HAZY (CLEAR)
[2020-09-06 09:36] LABS: BILIRUBIN,URINE NEGATIVE (NEGATIVE); ICTOTEST,URINE NEGATIVE
[2020-09-06 09:37] LABS: BACTERIA,URINE Few /HPF (None Seen); RBC,URINE TNTC /HPF (0-5); SQUAMOUS EPITHELIAL CELL,UR RARE Squamous (<= Few)
--- NOTE | 2020-09-06 09:46 | CT Report ---
PROCEDURE: Abdomen/Pelvis WO INDICATIONS: persistent lower abd pain TECHNIQUE: Noncontrast 5 mm thick sections acquired from the diaphragms to the symphysis. 5 mm coronal and sagi ttal reformats were then performed. For radiation dose reduction, the following was used: automated exposure control, adjustment of mA and/or kV according to patient size. COMPARISON: CT abdomen and pelvis 08/30/2020 with IV contrast. FINDINGS: Image quality: Excellent. ABDOMEN: Lung bases: Lung bases are clear. No pleural effusion. Heart size is normal. 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 Solid organs: Liver and spleen are normal in size. Gallbladder is unremarkable Pancreas is normal in contours. No adrenal nodules. Kidneys are normal in size. Left double-J ureteral stent is in the expected position. No hydronephros is. The distal left ureter calculus is no longer seen. Multiple bilateral kidney stones. Largest ston e on the left measures 1.1 x 0.6 cm at the inferior pole. Largest stone on the right measures 0.6 x 0 .5 cm in the renal pelvis and move superiorly from the inferior calyx compared to 08/30/2020. Renal p yramid calcifications. Simple cyst at the superior pole of the left kidney measuring 2.5 cm. Peritoneum and bowel: Unenhanced bowel loops demonstrate normal wall thickness and caliber. Divertic ulosis without diverticulitis. Normal caliber of the appendix. No free fluid or air. Nodes and vessels: No retroperitoneal or mesenteric adenopathy by size criteria. Aorta and inferior vena cava are normal in caliber. Extensive calcified arthroscopic plaque. Miscellaneous: No ventral hernias. PELVIS: Genitourinary: Bladder is decompressed limiting evaluation. No bladder stones seen. Retroverted uter us. No free fluid. Miscellaneous: No inguinal hernias or adenopathy. Bones: No suspicious bony lesions. No vertebral body compression fractures. IMPRESSION: 1. Left ureteral stent is in the expected position with improved hydronephrosis. Distal left ureter s tone is no longer seen. 2. No acute inflammatory process is identified. No free fluid. 3. Nonobstructing calculus in the right renal pelvis measuring 6 mm. This stone has moved into the re nal pelvis compared to 08/30/2020. Suspect that this stone is high risk for future ureteral obstructi on. 4. Multiple kidney stones bilaterally. 5. Diverticulosis without diverticulitis. Normal pancreas. Reviewed by: Bhargav Mahan MD on 09/06/2020 8:45 AM [facility] Approved by: Bhargav Mahan MD on 09/06/2020 8:45 AM [facility] Station ID: [id number]
[2020-09-06] MEDS ORDERED: KETOROLAC 15 MG/ML VIAL IVP STA (10:22)
[2020-09-06] MEDS ORDERED: cefTRIAXone 1 GM VIAL IVP STA (10:22)
[2020-09-06 12:14] VITALS: BP 123/70
== END 2020-09-06 12:41 | disposition home or self-care (01) ==
LOC: EDUNIT# → ED 08:16
DX: T83.84XA Pain due to genitourinary prosthetic devices, implants and grafts, initial encounter (principal); Y83.8 Other surgical procedures as the cause of abnormal reaction of the patient, or of later complication, without mention of misadventure at the time of the procedure; N20.0 Calculus of kidney
CPT/HCPCS: 51798; 74176; 80048; 81001; 81003; 83735; 85025; 87086; 96374; 99284

== ENCOUNTER 2022-01-15 18:31 | Outpatient (CLI) | payer MEDICARE, OTHER | END 2022-01-15 18:32 | disposition short-term general hospital (02) | LOC: EMS 18:31 | DX: M25.512 Pain in left shoulder (principal); M79.622 Pain in left upper arm; W01.0XXA Fall on same level from slipping, tripping and stumbling without subsequent striking against object, initial encounter; Y93.01 Activity, walking, marching and hiking; Y92.511 Restaurant or cafe as the place of occurrence of the external cause | CPT/HCPCS: A0425; A0429 ==

== ENCOUNTER 2022-01-18 12:25 | Outpatient (CLI) | payer MEDICARE, OTHER | END 2022-01-18 12:26 | disposition critical access hospital (66) | LOC: EMS 12:25 | DX: R41.0 Disorientation, unspecified (principal); I95.9 Hypotension, unspecified; R30.9 Painful micturition, unspecified; M25.512 Pain in left shoulder | CPT/HCPCS: A0425; A0427 ==

== ENCOUNTER 2022-01-18 12:45 | Inpatient (IN) | payer MEDICARE, OTHER, MEDICAID ==
--- OUTSIDE RECORDS SUMMARY | 2022-01-18 13:18 | EXTERNAL MEDICAL SUMMARY RPT | Continuity of Care Document ---
:1940 Author Organization [place] Address [address] [place] [address] Phone Care Team Providers Name Role Phone Federico Unavailable Unavailable Pau Unavailable Unavailable Allergies No information. Encounters No information. Medications date description facility 20220115 Acetaminophen 325 MG / Hydrocodone Sparkle rtrate 5 MG Oral [facility] Tablet 20220115 Ondansetron 4 MG Disintegrating Tablet [facility] 20211221 tramadol hydrochloride 50 MG Oral [facility] 20211221 Cyclobenzaprine hydrochloride 5 MG Oral Tablet [facility] 20211221 tramadol hydrochloride 50 MG Oral [facility] 20211221 Cyclobenzaprine hydrochloride 5 MG Oral Tablet [facility] Problems date description facility 20211029 Other abnormal and inconclusive finding s on [facility] imagi Procedures date description facility [id number] [facility] 20211221 [facility] 20211221 [facility] [id number] [facility] [id number] [facility] 20211029 [facility] 20211029 [facility] Results No information. Vital Signs date measurement value source 20211221 weight_standard 72.12 lb 20211221 weight_metric 32.71 kg 20211221 height_standard 63 in 20211221 height_metric 160.02 cm 20211221 heart_rate 69 /min 20211221 BP_systolic 132 mm[Hg] 20211221 BP_diastolic 60 mm[Hg] 20211221 BMI 28.1 kg/m2 20220115 weight_standard 71.21 lb 20220115 weight_metric 32.3 kg 20220115 temperature_standard 97.4 F 20220115 temperature_metric 36.33 C 20220115 respiration_rate 16 /min 20220115 height_standard 62 in 20220115 height_metric 157.48 cm 20220115 heart_rate 60 /min 20220115 BP_systolic 131 mm[Hg] 20220115 BP_diastolic 61 mm[Hg] 20220115 BMI 28.7 kg/m2
[2022-01-18 13:32] LABS: BASOPHILS # (AUTO) 0.1 10^3/uL (0.0-0.1); BASOPHILS % (AUTO) 0.6 %; EOSINOPHILS # (AUTO) 0.1 10^3/uL (0.0-0.7); EOSINOPHILS % (AUTO) 0.9 %; HGB - HEMOGLOBIN 13.8 g/dL (12.0-16.0); LYMPHOCYTES # (AUTO) 1.1 10^3/uL (1.5-3.5); LYMPHOCYTES % (AUTO) 11.9 %; MEAN CORPUSCULAR HEMOGLOBIN 34.6 pg (27.0-31.0); MEAN CORPUSCULAR HGB CONC 32.9 g/dL (32.0-36.0); MEAN CORPUSCULAR VOLUME 105.3 fL (81.0-99.0); MEAN PLATELET VOLUME 11.3 fL (7.9-10.8); MONOCYTES # (AUTO) 0.8 10^3/uL (0.0-1.0); MONOCYTES % (AUTO) 8.7 %; NEUTROPHILS % (AUTO) 77.7 %; PLT - PLATELET COUNT 197 10^3/uL (130-450); RED BLOOD COUNT 3.99 10^6/uL (4.20-5.40); RED CELL DISTRIBUTION WIDTH 13.6 % (12.0-15.0)
[2022-01-18] MEDS ORDERED: SODIUM CHLORIDE 0.9% 1,000 ML IV STA (13:33)
--- NOTE | 2022-01-18 13:36 | ED Physician Documentation ---
History of Present Illness - Stated complaint Stated Complaint: SHOULDER PX - Chief complaint Chief Complaint: General - Additonal information Additional information: 81-year-old female was brought to the emergency department for evaluation of acute confusion and left arm pain. Patient is unable to provide much of the history due to confusion but this history was obtained by her good friend Jen whom I called with the patient's permission. The patient apparently had a syncopal episode on 15 January causing a fall. She was subsequently seen at [facility]. Though I do not have access to the records she was reportedly discharged home with a diagnosis of a left humeral fracture. Her friend who was checking on her this morning found that she was confused and laying on the couch. Patient was disoriented to person and time. Though there were no obvious focal deficits. This patient is at baseline independent without assistance. No known history of dementia. Patient reports that her left arm is hurting. She does not have any complaints of chest pain or shortness of air. There is some mild tenderness elicited of the lower abdomen and patient does endorse some dysuria. Further review of the chart reveals that the patient was diagnosed with breast cancer in April 2019.She was seen by Dr. Chuck singh Of oncology. At that time the patient did not want to have any treatments that would prolong her life. Given that this was going to be a very slow-growing cancer and it was felt that it would likely take years before it became problematic no treatment was rendered. In addition to this In 2019 patient presented to this emergency department was found to have a urinary tract infection and subsequent CT abdomen the pelvis revealed a left ureter calculus 5-1/2 mm with some associated hydronephrosis. She previously had a ureter stent stone in 2018 and has subsequently been stented. It is unclear if the stenting remains at this time. Review of Systems Unable to obtain: Confused, Other (Much of history obtained from patient's friend Patricia) Cardiac: denies: Chest pain / pressure, Palpitations GI: denies: Abdominal Pain : reports: Dysuria Musculoskeletal: reports: Extremity pain (Left arm) PD PAST MEDICAL HISTORY - Past Medical History Cardiovascular: None Respiratory: COPD Neuro: Tremors Endocrine/Autoimmune: None GI: Hiatal hernia, Chronic diarrhea : Kidney stones HEENT: None, Macular degeneration Psych: Depression Musculoskeletal: Osteoarthritis, Chronic back pain Derm: None - Past Surgical History Past Surgical History: No General: Hiatal hernia repair Ortho: Knee replacement HEENT: Cataracts, Detached retina repair, Other - Present Medications Home Medications: Ambulatory Orders Medication Instructions Recorded Confirmed PARoxetine [Paxil] 30 mg PO DAILY 09/22/15 09/06/20 Propranolol ER [Inderal LA] 60 mg PO DAILY 09/22/15 09/06/20 Memantine [Namenda] 10 mg PO BID 10/20/17 09/06/20 Docusate Sodium [Dok] 100 mg PO DAILY #20 tablet 09/06/20 HYDROcod/ACETAM 5/325 [[place] 5/325] 1 ea PO Q6H PRN #12 tablet 09/06/20 Phenazopyridine HCl [Pyridium] 100 mg PO TID PRN #15 tablet 09/06/20 cephALEXin [Keflex] 500 mg PO TID #15 capsule 09/06/20 - Allergies Allergies/Adverse Reactions: Allergies Allergy/AdvReac Type Severity Reaction Status Date / Time ibuprofen [From Motrin] Allergy Unknown Verified 01/18/22 13:00 Penicillins AdvReac Intermediate Hives Verified 01/18/22 13:00 - Social History Does the pt smoke?: No Smoking Status: Never smoker Does the pt drink ETOH?: No Does the pt have substance abuse?: No - Immunizations Immunizations are current?: Yes PD ED PE EXPANDED - General General: Alert, Disheveled, poorly kept - Cardiac Cardiac: Regular Rate, Radial strong equal, Pedal strong equal, Cap refill < 2 sec. No: Murmur Present - Respiratory Respiratory: Clear to ausultation amol. No: Distress, Labored - Abdomen Abdomen: Normal Bowel sounds. No: Tender to palpation - Extremities Extremities: Left arm (Tenderness of the proximal humerus without ecchymosis or swelling. Patient is unwilling to move the arm at the shoulder. She has preserved flexion extension of the elbow though no supination. Distal radial pulse 2+.) Results - Vitals Vitals: Vital Signs - 24 hr 01/18/22 01/18/22 01/18/22 12:52 13:01 15:00 Temperature 36.6 C Heart Rate 89 80 Respiratory 18 23 Rate Blood Pressure 107/81 H 135/58 H O2 Saturation 97 88 L 93 01/18/22 17:00 Temperature 36.5 C Heart Rate 77 Respiratory 19 Rate Blood Pressure 106/90 H O2 Saturation 99 Oxygen O2 Source Room air - EKG (time done) 1414 Rate: Rate (enter#) (73) Rhythm: NSR [place]: Normal Intervals: Normal [place] QRS: Normal Ischemia: T wave inversion (v2-v5) Compare to prior EKG: Old EKG unavailable Computer interpretation: Agree with computer - Labs Labs: Laboratory Tests 01/18/22 01/18/22 01/18/22 13:18 13:18 13:18 WBC 9.0 RBC 3.99 L Hgb 13.8 Hct 42.0 MCV 105.3 H MCH 34.6 H MCHC 32.9 RDW 13.6 Plt Count 197 MPV 11.3 H Neut # (Auto) 7.0 H Lymph # (Auto) 1.1 L Bennett # (Auto) 0.8 Eos # (Auto) 0.1 Baso # (Auto) 0.1 Absolute Nucleated RBC 0.00 Nucleated RBC % 0.0 Sodium 141 Potassium 3.7 Chloride 106 Carbon Dioxide 21 Anion Gap 14.0 H BUN 16 Creatinine 0.9 Estimated GFR (MDRD) 60 L Glucose 126 H Calcium 8.9 Total Bilirubin 1.3 H AST 16 ALT 12 Alkaline Phosphatase 96 Troponin I High Sens 5.4 B-Natriuretic Peptide Total Protein 7.1 Albumin 3.6 Globulin 3.5 Albumin/Globulin Ratio 1.0 Lipase 45 Urine Color Urine Clarity Urine pH Ur Specific Counce Urine Protein Urine Glucose (UA) Urine Ketones Urine Occult Blood Urine Nitrite Urine Bilirubin Urine Urobilinogen Ur Leukocyte Esterase Urine RBC Urine WBC Urine WBC Clumps Ur Squamous Epith Cells Urine Bacteria Urine Yeast Ur Microscopic Review Urine Culture Comments 01/18/22 01/18/22 13:18 13:50 WBC RBC Hgb Hct MCV MCH MCHC RDW Plt Count MPV Neut # (Auto) Lymph # (Auto) Bennett # (Auto) Eos # (Auto) Baso # (Auto) Absolute Nucleated RBC Nucleated RBC % Sodium Potassium Chloride Carbon Dioxide Anion Gap BUN Creatinine Estimated GFR (MDRD) Glucose Calcium Total Bilirubin AST ALT Alkaline Phosphatase Troponin I High Sens B-Natriuretic Peptide 78 Total Protein Albumin Globulin Albumin/Globulin Ratio Lipase Urine Color YELLOW Urine Clarity CLOUDY Urine pH 6.0 Ur Specific Counce 1.025 Urine Protein 100 H Urine Glucose (UA) NEGATIVE Urine Ketones 40 H Urine Occult Blood LARGE H Urine Nitrite POSITIVE H Urine Bilirubin NEGATIVE Urine Urobilinogen 1 (NORMAL) Ur Leukocyte Esterase LARGE H Urine RBC TNTC H Urine WBC >25 H Urine WBC Clumps PRESENT Ur Squamous Epith Cells FEW Squamous Urine Bacteria Moderate H Urine Yeast PRESENT Ur Microscopic Review INDICATED Urine Culture Comments INDICATED - Rads (name of study) CXR Radiology: Final report received (No evidence of acute pulmonary process) left shoulder Radiology: Final report received (Comminuted fracture of the left humeral head and neck) CT head Radiology: Final report received (Volume loss and small vessel ischemic disease. No acute intracranial abnormality.) CT chest Radiology: Final report received (Stable interval exam demonstrating pulmonary symptom changes. Bilateral nonobstructing renal calculi) CT abd/pelvis Radiology: Final report received (Bilateral renal calculi, left greater then moderate without obstruction. Hepatic steatosis) PD MEDICAL DECISION MAKING - ED course Complexity details: reviewed results, re-evaluated patient, d/w patient ED course: 21-year-old female comes emergency department for evaluation of acutely altered mental status/confusion. She was seen at [facility] on 15 January after syncopal event and a fall. She was diagnosed with a left shoulder/proximal humerus fracture. Her friend this morning checked on her and found her laying on the couch and confused. At baseline she has normal mentation with no history of dementia. Initial ER screening labs and work-up here were unrevealing with the exception of urinary tract infection. No fevers or leukocytosis. She was administered 1 g of ceftriaxone. 1500: Subsequent chart review reveals that the patient was diagnosed with right- sided breast cancer in 2018. She was consulted with hematology oncology and at that time patient elected to have no treatment. The oncologist told the patient that this was going to be a slow-growing tumor and it would likely be years before she manifested any symptoms. In addition patient required transfer to [facility] in 2020 for urinary tract infection with associated ureter stone and hydronephrosis. Patient is not able to deliver any of this history to me. Her screening chest x-ray is unrevealing. CT of the head was negative. Given the above history I have subsequently ordered a CT of the chest abdomen and pelvis. If we have further findings of obstruction she may require transfer however we are also looking for possible metastasis in the setting of breast cancer that is untreated 1650: CT of the chest shows no findings concerning for metastasis. A CT of the abdomen and pelvis shows multiple renal stones left greater than right however there is no obstructing stones or ureter colic. Given this finding patient does not need emergent transfer for urology intervention. I have discussed this case with our hospitalist Dr. Gay. Patient will be admitted to observation status for further treatment of her metabolic encephalopathy and urinary tract infection. I have discussed the plan with the patient. She remains confused at this time. She has asked that I notify her friend Patricia. Departure - Departure Disposition: ED Place in Observation Clinical Impression: Acute metabolic encephalopathy Urinary tract infection Qualifiers: Urinary tract infection type: acute cystitis Hematuria presence: with hematuria Qualified Code(s): N30.01 - Acute cystitis with hematuria Left humeral fracture Qualifiers: Encounter type: initial encounter Humerus Location: proximal Fracture type: closed Fracture morphology: unspecified fracture morphology Qualified Code(s): S42.202A - Unspecified fracture of upper end of left humerus, initial encounter for closed fracture
--- NOTE | 2022-01-18 13:39 | XRAY Report ---
PROCEDURE: Chest 1 View X-Ray INDICATIONS: Chest Pain TECHNIQUE: One view of the chest was acquired. COMPARISON: 08/30/2020 FINDINGS: Surgical changes and devices: None. Lungs and pleura: No pleural effusions or pneumothorax. Lungs are clear. Mediastinum: Mediastinal contours appear normal. Heart size is normal. Bones and chest wall: No suspicious bony lesions. Overlying soft tissues appear unremarkable. IMPRESSION: No evidence acute pulmonary process. Reviewed by: Zane Nieves MD on 01/18/2022 1:38 PM PDT Approved by: Zane Nieves MD on 01/18/2022 1:38 PM PDT Station ID: [id number]
--- NOTE | 2022-01-18 13:41 | XRAY Report ---
PROCEDURE: Shoulder 1 View LT INDICATIONS: syncope; ? fx TECHNIQUE: 1 views of the shoulder were acquired. COMPARISON: None. FINDINGS: Bones: There is a comminuted fracture of the humeral head and neck seen on this single view. No dislo cation identified. No suspicious bony lesions. Visualized ribs appear intact. Soft tissues: No suspicious soft tissue calcifications. IMPRESSION: Comminuted fracture of the left humeral head and neck. Reviewed by: Zane Nieves MD on 01/18/2022 1:40 PM PDT Approved by: Zane Nieves MD on 01/18/2022 1:40 PM PDT Station ID: [id number]
[2022-01-18 13:57] LABS: GLUCOSE, URINE (UA) NEGATIVE (NEGATIVE); KETONES,URINE (UA) 40 mg/dL (NEGATIVE); LEUKOCYTE ESTERASE, URINE LARGE (NEGATIVE); NITRITE,URINE POSITIVE (NEGATIVE); OCCULT BLOOD,URINE LARGE (NEGATIVE); PROTEIN,URINE 100 mg/dL (NEGATIVE); UROBILINOGEN,URINE 1 (NORMAL) E.U./dL (NORMAL)
[2022-01-18 14:03] LABS: BILIRUBIN,URINE NEGATIVE (NEGATIVE); CLARITY,URINE CLOUDY (CLEAR); ICTOTEST,URINE NEGATIVE
[2022-01-18 14:09] LABS: ALBUMIN 3.6 g/dL (3.2-5.5); BILIRUBIN,TOTAL 1.3 mg/dL (0.2-1.0); CALCIUM 8.9 mg/dL (8.5-10.3); POTASSIUM 3.7 mmol/L (3.5-5.0); TOTAL PROTEIN 7.1 g/dL (6.7-8.2)
[2022-01-18] MEDS ORDERED: cefTRIAXone 1 GM VIAL IVP STA (14:13)
--- NOTE | 2022-01-18 14:17 | CT Report ---
PROCEDURE: HEAD WO INDICATIONS: confusion TECHNIQUE: Noncontrast 4.5 mm thick angled axial sections acquired from the foramen magnum to the vertex. For r adiation dose reduction, the following was used: automated exposure control, adjustment of mA and/or kV according to patient size. COMPARISON CT dated 10/21/2017 FINDINGS: Image quality: Excellent. CSF spaces: Basal cisterns are patent. No extra-axial fluid collections. Ventricles are normal in size and shape. Brain: No midline shift. No intracranial masses or hemorrhage. Ferguson-white matter interface is norm al. Skull and face: Calvarium and visualized facial bones are intact, without suspicious lesions. Sinuses: Visualized sinuses and mastoids are clear. IMPRESSION: 1. Volume loss and small vessel ischemic disease. 2. No acute intracranial abnormality. Reviewed by: Darrel Walters MD on 01/18/2022 2:15 PM PDT Approved by: Darrel Walters MD on 01/18/2022 2:15 PM PDT Station ID: [id number]
[2022-01-18 14:18] LABS: CREATININE 0.9 mg/dL (0.4-1.0)
[2022-01-18 14:18] LABS: BACTERIA,URINE Moderate /HPF (None Seen); RBC,URINE TNTC /HPF (0-5); SQUAMOUS EPITHELIAL CELL,UR FEW Squamous (<= Few); WBC CLUMPS,URINE PRESENT; WBC,URINE >25 /HPF (0-5); YEAST,URINE PRESENT
[2022-01-18] MEDS ORDERED: IOPAMIDOL-300 100 ML VIAL ONE (15:31)
[2022-01-18] MEDS ORDERED: IOPAMIDOL-300 100 ML VIAL IVP ONE (16:12)
--- NOTE | 2022-01-18 16:21 | CT Report ---
PROCEDURE: CHEST W INDICATIONS: hx of breast cancer; confusion CONTRAST: IV CONTRAST: Isovue 300 ml: 100 PO CONTRAST: *NO PO CONTRAST TECHNIQUE: After the administration of intravenous contrast, 1 mm axial images were acquired from the pulmonary apices through the posterior costophrenic angles. Axial 5 mm soft tissue kernel reconstructions were performed as well as 8 mm axial MIP and coronal and sagittal 5 mm reformations. For radiation dose reduction, the following was used: automated exposure control, adjustment of mA and/or kV according to patient size. COMPARISON: CT chest 04/12/2019, CT abdomen pelvis 01/18/2022, 09/06/2020 FINDINGS: Image quality: Excellent. Lungs and pleura: No acute air space opacities. No pleural effusions or pneumothorax. Central and peripheral airways are patent and normal in caliber. Centrilobular emphysematous changes are present . Mild biapical scarring. Mediastinum: Heart size is normal. No pericardial effusion. No mediastinal or hilar adenopathy by size criteria. Thoracic aorta and central pulmonary arteries are normal in size. Esophagus is maykel l in caliber. No hiatal hernia. Bones and chest wall: No suspicious bony lesions. No vertebral body compression fractures. No axil jennifer or supraclavicular adenopathy by size criteria. The thyroid is normal in size and there are no incidental findings.. Abdomen: Surgical changes reflecting Juan Carlos fundoplication is present. Partially visualized bilatera l renal calculi most prominent on the right. Hepatic steatosis is present. Scattered subcentimeter lo w-attenuation foci are unchanged. Left renal cyst is stable. Visualized upper abdominal solid organs appear normal. Upper abdominal bowel loops are normal in isela iber. IMPRESSION: Stable interval exam demonstrating pulmonary symptoms changes. Bilateral nonobstructing renal calculi. CLINICAL RECOMMENDATION STATEMENTS: In patients <35 years with an ITN detected on CT, MRI, or extrathyroidal ultrasound, the Committee re commends further evaluation with dedicated thyroid ultrasound if the nodule is "e1 cm and has no susp icious imaging features, and if the patient has normal life expectancy. In patients "e35 years with an ITN detected on CT, MRI, or extrathyroidal ultrasound, the Committee r ecommends further evaluation with dedicated thyroid ultrasound if the nodule is "e1.5 cm and has no s uspicious imaging features, and if the patient has normal life expectancy. (ACR, 2014) Reviewed by: Kanika Lion MD on 01/18/2022 3:20 PM SOTERO Approved by: Kanika Lion MD on 01/18/2022 3:20 PM AKELIZA Station ID: [id number]
--- NOTE | 2022-01-18 16:34 | CT Report ---
PROCEDURE: Abdomen/Pelvis W INDICATIONS: UTI; hx of ureter stenting CONTRAST: IV CONTRAST: Isovue 300 ml: 100 PO CONTRAST: *NO PO CONTRAST TECHNIQUE: After the administration of IV contrast, 5 mm thick sections acquired from the diaphragms to the symp hysis. 5 mm thick coronal and sagittal reformats were acquired. For radiation dose reduction, the f ollowing was used: automated exposure control, adjustment of mA and/or kV according to patient size. COMPARISON: CT chest 01/18/22,abdomen pelvis 09/06/2020 FINDINGS: Image quality: Excellent. ABDOMEN: Lung bases: Lung bases are clear. Heart size is normal. Solid organs: Liver is mildly enlarged and demonstrates steatosis with unchanged subcentimeter foci of low-attenuation. Gallbladder is unremarkable. Biliary system is non dilated. Pancreas enhances n ormally. No adrenal nodules. There is mild right renal atrophy. There are approximately 12-15 calcif ications within the left kidney, approximately 5 on the right. The largest on the left is in the ante rior inferior renal pole measuring 9 mm, Hounsfield units measure 1140. There overall unchanged. Ther e is no obstruction. Peritoneum and bowel: Bowel loops demonstrate normal wall thickness and caliber. No free fluid or a ir. Scattered colonic diverticula are present. Nodes and vessels: No retroperitoneal or mesenteric adenopathy by size criteria. Aorta and inferior vena cava are normal in size. Miscellaneous: No ventral hernias. PELVIS: Genitourinary: Bladder wall thickness is normal. Miscellaneous: No inguinal hernias or adenopathy. Bones: No suspicious bony lesions. No vertebral body compression fractures. IMPRESSION: Bilateral renal calculi, left greater than moderate without obstruction. Hepatic steatosis. Reviewed by: Kanika Lion MD on 01/18/2022 3:32 PM AKDT Approved by: Kanika Lion MD on 01/18/2022 3:32 PM AKDT Station ID: [id number]
[2022-01-18] MEDS ORDERED: PROCHLORPERAZINE 10 MG/2 ML VIAL IVP PRN (16:56)
[2022-01-18] MEDS ORDERED: SODIUM CHLORIDE FLUSH 0.9% 10 ML SYRINGE IVP PRN (16:56)
[2022-01-18] MEDS ORDERED: ONDANSETRON ODT 4 MG TABLET TL PRN (16:56)
[2022-01-18] MEDS: SODIUM CHLORIDE FLUSH 0.9% 10 ML SYRINGE IVP SCH (18:28)
[2022-01-18] MEDS: SODIUM CHLORIDE 0.9% 1,000 ML IV SCH (18:28)
--- NOTE | 2022-01-18 19:14 | HISTORY & PHYSICAL EXAMINATION ---
Chief Complaint - Chief Complaint Chief Complaint: Abdominal pain History of Present Illness - Admitted From Admitted From:: Home - History Obtained From Records Reviewed: [facility] History obtained from: Patient, Hospitalist, EMR - History of Present Illness HPI Comment/Other: This is a 81-year-old female with a past medical history significant for COPD, dementia, essential tremor who presents today complaining of abdominal pain. She states has been going on now for a few days and she has had associated dysuria and urgency. She feels like it is similar compared to her prior urinary tract infections. She states she fell a few days ago and this caused her to fracture her left arm. She is little confused and cannot member where she was seen but believes it may be [facility]. Currently reports her pain is controlled and she denies any numbness in the left upper extremity. She reports no fevers, chills. She has a history of kidney stones and has been admitted in the past due to sepsis secondary to an obstructing stone and urinary tract infection. The patient states she normally lives alone and ambulates with a cane at baseline. She does not believe she is a history of dementia but feels she is little confused at this time. She does drink 2 alcoholic beverages a day. She denies chest pain, dyspnea, syncope. She does occasionally feel dizzy and lightheaded and believes this is what caused her to fall few days ago. She was about 1-2 drinks and when she fell a few days ago. We discussed goals of care and she would like to be a DNR. History - Past Medical History Cardiovascular: reports: None Respiratory: reports: COPD Neuro: reports: Dementia, Tremors Endocrine/Autoimmune: reports: None GI: reports: Hiatal hernia, Chronic diarrhea : reports: Kidney stones HEENT: reports: None, Macular degeneration Psych: reports: Depression Musculoskeletal: reports: Osteoarthritis, Chronic back pain Derm: reports: None MRSA Hx?: No - Past Surgical History General: reports: Hiatal hernia repair Ortho: reports: Knee replacement HEENT: reports: Cataracts, Detached retina repair, Other - Family & Social History Family History Comment/Other: Her mother from coronary artery disease and a myocardial infarction. Her brother from a brain tumor. Living arrangement: At home Living Situation: Alone Social History Notes: She lives at home alone. She smoked a pack a day for 25 years but quit over 30 years ago. She drinks 1-2 alcoholic beverages a night. She prefers vodka with water. Meds/Allgy - Home Medications Home Medications: Ambulatory Orders Medication Instructions Recorded Confirmed PARoxetine [Paxil] 30 mg PO DAILY 09/22/15 09/06/20 Propranolol ER [Inderal LA] 60 mg PO DAILY 09/22/15 09/06/20 Memantine [Namenda] 10 mg PO BID 10/20/17 09/06/20 Docusate Sodium [Dok] 100 mg PO DAILY #20 tablet 09/06/20 HYDROcod/ACETAM 5/325 [[place] 5/325] 1 ea PO Q6H PRN #12 tablet 09/06/20 Phenazopyridine HCl [Pyridium] 100 mg PO TID PRN #15 tablet 09/06/20 cephALEXin [Keflex] 500 mg PO TID #15 capsule 09/06/20 - Allergies Allergies/Adverse Reactions: Allergies Allergy/AdvReac Type Severity Reaction Status Date / Time ibuprofen [From Motrin] Allergy Unknown Verified 01/18/22 13:00 Penicillins AdvReac Intermediate Hives Verified 01/18/22 13:00 Review of Systems - Constitutional Constitutional: denies: Fever, Chills, Weakness - Cardiovascular Cariovascular: reports: Lightheadedness. denies: Chest pain, Edema, Syncope, E xertional dyspnea, Decr. exercise tolerance - Respiratory Respiratory: denies: Cough, SOB at rest, SOB with exertion - Gastrointestinal Gastrointestinal: reports: Abdominal pain. denies: Diarrhea, Change in bowel habits, Nausea, Vomiting - Genitourinary Genitourinary: reports: Dysuria, Urgency. denies: Hematuria - Musculoskeletal Musculoskeletal: reports: Limited range of motion - Integumentary Integumentary: denies: Rash - Neurological Neurological: reports: Dizziness, Other (Tremor.) - Hematologic/Lymphatic Hematologic/Lymphatic: reports: Bruising. denies: Bleeding tendencies - All Other Systems All Other Systems: reports: Reviewed and negative Prior Level of Functionality: She is normally independent with her ADLs. Exam - Vital Signs Reviewed Vital Signs: Yes Vital Signs: Vital Signs x48h Temp Pulse Pulse Resp BP BP Pulse Ox 01/18/22 18:00 36.9 C 75 20 130/39 L 98 01/18/22 17:00 36.5 C 77 19 106/90 H 99 01/18/22 15:00 80 23 135/58 H 93 01/18/22 13:01 88 L 01/18/22 12:52 36.6 C 89 18 107/81 H 97 - Physical Exam General Appearance: positive: No acute distress, Alert Eyes Bilateral: positive: Normal inspection, Conjunctivae nml ENT: positive: ENT inspection nml, No signs of dehydration Respiratory: positive: No respiratory distress. negative: Wheezes, Rales Cardiovascular: positive: Regular rate & rhythm. negative: Tachycardia Abdomen: positive: Nml bowel sounds, No distention, Tenderness (Suprapubic tenderness). negative: Guarding, Rebound Skin: positive: Warm, Dry Extremities: positive: No pedal edema, Other (Sling in place of the left upper extremity. Small area of ecchymosis over the lateral aspect of the humerus. Sensation intact.) Neurologic/Psychiatric: positive: Disoriented to time. negative: Disoriented to person, Disoriented to place Conclusion/Plan - Problem List (1) Altered mental status Conclusion/Plan: It appears she is altered compared to her baseline but this already appears to be improved compared to documentation of the ER notes. She is oriented to self and location but not to month. Review of prior records reveals she does have dementia and is on Namenda. CT head showed no acute abnormalities. We will treat underlying UTI as this may be causing her to be altered compared to her baseline. If she is improved tomorrow and is back to her baseline think she can likely be discharged home. We will check vitamin B12, folate, TSH. (2) UTI (urinary tract infection) Conclusion/Plan: Her urinalysis suggests infection and she also has symptoms. Suspect this may be causing her altered mental status. There is currently no evidence of sepsis. We will asked to continue her on ceftriaxone IV based off of prior cultures. Follow-up urine culture. Qualifiers: Urinary tract infection type: acute cystitis Hematuria presence: with hematuria Qualified Code(s): N30.01 - Acute cystitis with hematuria (3) Nephrolithiasis Conclusion/Plan: There was no evidence of obstruction on CT but she does have nephrolithiasis which is chronic. (4) Left humeral fracture Conclusion/Plan: This is secondary to a fall a few days ago. We will continue with the sling in place and she can follow-up with orthopedic surgery on outpatient basis. Tylenol as needed for pain control. We will look to limit the use of oxycodone given her altered mental status but she may ultimately require opiates if her pain is not well controlled. We will consult PT and OT given the fracture. Qualifiers: Encounter type: initial encounter Humerus Location: proximal Fracture type: closed Fracture morphology: unspecified fracture morphology Qualified Code(s): S42.202A - Unspecified fracture of upper end of left humerus, initial encounter for closed fracture (5) Dementia Conclusion/Plan: We will continue her home Namenda. We will manage her altered mental status as mentioned above. (6) COPD (chronic obstructive pulmonary disease) Conclusion/Plan: Stable and not in exacerbation. Continue with albuterol as needed. Qualifiers: COPD type: chronic bronchitis (7) Essential tremor Conclusion/Plan: Continue propranolol. - Lab Results Lab results reviewed: Yes Kin Bones: 01/18/22 13:18 01/18/22 13:18 - Diagnostic Imaging Results Diagnostic Imaging Results: positive: Final report reviewed - EKG Results EKG Interpreted Independently: Yes EKG Findings: EKG shows a sinus rhythm without evidence of ischemia. Core Measures - Anticipated LOS I expect patient to be DC'd or transferred within 96 hours.: Yes - Issues Hospital Issues and Management Plan: 81-year-old female with dementia, essential tremor who had a recent fall resulting in a left humeral fracture presented to worsening confusion found to be altered. Appears to be secondary to a UTI but there is no evidence of sepsis. Will place in observation for IV fluids and antibiotics - DVT/VTE - Prophylaxis VTE/DVT Device ordered at admit?: Yes VTE/DVT Prophylaxis med ordered at admit?: Yes
[2022-01-18] MEDS: MEMANTINE 5 MG TABLET PO SCH (22:08)
[2022-01-18] MEDS: ACETAMINOPHEN 325 MG TABLET PO PRN (22:08)
[2022-01-19] MEDS: SODIUM CHLORIDE 0.9% 1,000 ML IV SCH (04:08)
[2022-01-19 05:12] LABS: BASOPHILS # (AUTO) 0.1 10^3/uL (0.0-0.1); BASOPHILS % (AUTO) 0.8 %; EOSINOPHILS # (AUTO) 0.2 10^3/uL (0.0-0.7); EOSINOPHILS % (AUTO) 3.4 %; HCT - HEMATOCRIT 40.5 % (37.0-47.0); LYMPHOCYTES # (AUTO) 1.5 10^3/uL (1.5-3.5); LYMPHOCYTES % (AUTO) 23.3 %; MEAN CORPUSCULAR HEMOGLOBIN 34.2 pg (27.0-31.0); MEAN CORPUSCULAR HGB CONC 32.1 g/dL (32.0-36.0); MEAN CORPUSCULAR VOLUME 106.6 fL (81.0-99.0); MEAN PLATELET VOLUME 11.5 fL (7.9-10.8); MONOCYTES # (AUTO) 0.6 10^3/uL (0.0-1.0); MONOCYTES % (AUTO) 9.8 %; NEUTROPHILS % (AUTO) 62.5 %; PLT - PLATELET COUNT 176 10^3/uL (130-450); RED CELL DISTRIBUTION WIDTH 13.9 % (12.0-15.0); WHITE BLOOD COUNT 6.4 x10^3/uL (4.8-10.8)
[2022-01-19 05:22] LABS: CALCIUM 8.3 mg/dL (8.5-10.3); CREATININE 0.7 mg/dL (0.4-1.0); POTASSIUM 3.2 mmol/L (3.5-5.0)
[2022-01-19 05:42] LABS: THYROID STIMULATING HORMONE 5.24 uIU/mL (0.34-5.60)
[2022-01-19 05:53] LABS: FOLATE 8.75 ng/mL (5.90 - >24.8)
[2022-01-19] MEDS: SODIUM CHLORIDE FLUSH 0.9% 10 ML SYRINGE IVP SCH ×4 (08:39→23:17)
[2022-01-19] MEDS: PARoxetine 10 MG TABLET PO SCH (08:41)
[2022-01-19] MEDS: ENOXAPARIN 40 MG/0.4 ML SYRINGE SUBQ SCH (08:41)
[2022-01-19] MEDS: MEMANTINE 5 MG TABLET PO SCH ×2 (08:41→21:25)
[2022-01-19] MEDS: cefTRIAXone 1 GM in SODIUM CHLORIDE 0.9% MINIBAG 100 ML IV SCH (08:41)
[2022-01-19] MEDS: ACETAMINOPHEN 325 MG TABLET PO PRN (08:42)
[2022-01-19] MEDS: THIAMINE 100 MG TABLET PO SCH (08:42)
[2022-01-19] MEDS ORDERED: POTASSIUM CHLORIDE 20 MEQ TABLET PO ONE (08:42)
[2022-01-19] MEDS: PROPRANOLOL ER 60 MG CAPSULE PO SCH (08:42)
[2022-01-19] MEDS: oxyCODONE 5 MG TABLET PO PRN ×2 (11:01→21:25)
--- NOTE | 2022-01-19 14:00 | PHARMACY PROGRESS NOTE ---
- Best Possible Medication History Admit Date and Time: 01/18/22 2029 Processed by: Pharmacy Medication History completed: Yes Patient Interview: Pt unable to participate Secondary Source(s): Pharmacy records, Insurance records As the person ultimately responsible for medication therapy, providers are able to order a medication from an existing home medication list in [facility] via the "Reconcile Routine" prior to Confirmation of that medication by system support developer. Such practice is discouraged except when the physician, in their clinical judgment, deems that a medical need exists for a medication without regard to previous use.
--- NOTE | 2022-01-19 15:01 | PROVIDER PROGRESS NOTE ---
Assessment/Plan - Problem List (1) Acute metabolic encephalopathy Assessment/Plan: 5/ pt still present confused but slightly improved. Patient has a history of dementia. CT head showed no acute abnormalities. UA analysis show UTI infection, we will continue treat with antibiotics. vitamin B12, folate, TSH are at normal range, neuro check (2) UTI (urinary tract infection) Conclusion/Plan: pt has hx of Multiple times of urinary tract infection. Her urinalysis suggests infection and she also has symptoms. Suspect this may be causing her altered mental status. There is currently no evidence of sepsis. We will asked to continue her on ceftriaxone IV based off of prior cultures. Follow-up urine culture. (3) Nephrolithiasis Conclusion/Plan: Patient denies jose manuel pain.There was no evidence of obstruction on CT but she does have nephrolithiasis which is chronic. (4) Left humeral fracture Conclusion/Plan: This is secondary to a fall a few days ago. we will continue PT/OT and fall prevention, And consult with social work for disposition planning, We will continue with the sling in place and she can follow-up with orthopedic surgery on outpatient basis. Tylenol as needed for pain control. We will look to limit the use of oxycodone given her altered mental status but she may ultimately require opiates. (5) Dementia Conclusion/Plan: We will continue her home Namenda. We will manage her altered mental status as mentioned above. (6) COPD (chronic obstructive pulmonary disease) Conclusion/Plan: Stable and not in exacerbation. Continue with albuterol as needed. (7) Essential tremor Conclusion/Plan: Continue propranolol. - Current Meds Current Meds: Current Medications Generic Name Dose Route Start Last Admin Trade Name Tyesha PRN Reason Stop Dose Admin Acetaminophen 650 mg 01/18/22 16:56 01/19/22 08:42 Acetaminophen 325 Mg Tablet PO 650 mg Q4HR PRN Administration Pain 1 to 4, or Fever Enoxaparin Sodium 40 mg 01/19/22 09:00 01/19/22 08:41 Enoxaparin 40 Mg/0.4 Ml Syringe SUBQ 40 mg DAILY [place] Administration Ceftriaxone Sodium 1 gm/ 100 mls @ 200 mls/hr 01/19/22 09:00 01/19/22 09:15 Sodium Chloride IV Infused DAILY [place] Infusion Memantine 10 mg 01/18/22 21:00 01/19/22 08:41 Memantine 5 Mg Tablet PO 10 mg BID [place] Administration Oxycodone HCl 5 mg 01/18/22 16:56 01/19/22 11:01 Oxycodone 5 Mg Tablet PO 5 mg Q4HR PRN Administration Pain 5 to 7 Paroxetine HCl 30 mg 01/19/22 09:00 01/19/22 08:41 Paroxetine 10 Mg Tablet PO 30 mg DAILY [place] Administration Propranolol HCl 60 mg 01/19/22 09:00 01/19/22 08:42 Propranolol Er 60 Mg Capsule PO 60 mg DAILY [place] Administration Sodium Chloride 10 ml 01/18/22 17:00 01/19/22 08:41 Sodium Chloride Flush 0.9% 10 Ml Syringe IVP Not Given 0100,0900,1700 [place] Thiamine HCl 100 mg 01/19/22 09:00 01/19/22 08:42 Thiamine 100 Mg Tablet PO 100 mg DAILY [place] Administration - Lab Result Fish Bone Diagrams: 01/19/22 04:16 01/19/22 04:16 - Additional Planning My Orders: My Active Orders 01/19/22 14:58 Admit [Admit \ Transfer \ Status] [RC] .ONCE Subjective - Subjective Patient Reports: Resting Comfortably Objective Vital Signs: Vital Signs - 24 hr 01/18/22 01/18/22 01/18/22 17:00 18:00 20:25 Temperature 36.5 C 36.9 C 36.6 C Heart Rate 77 Heart Rate [ 75 93 Brachial] Heart Rate [ Sitting] Respiratory 19 20 20 Rate Blood Pressure 106/90 H Blood Pressure 130/39 L 117/57 L [Right Brachial artery] Blood Pressure [Sitting] Blood Pressure [Standing] O2 Saturation 99 98 96 01/18/22 01/19/22 01/19/22 23:53 04:12 07:57 Temperature 36.5 C 36.3 C L 36.9 C Heart Rate Heart Rate [ 60 82 85 Brachial] Heart Rate [ Sitting] Respiratory 16 16 20 Rate Blood Pressure Blood Pressure 120/70 124/63 133/69 H [Right Brachial artery] Blood Pressure [Sitting] Blood Pressure [Standing] O2 Saturation 95 95 95 01/19/22 01/19/22 01/19/22 10:26 11:01 13:27 Temperature Heart Rate Heart Rate [ 100 Brachial] Heart Rate [ 105 H 105 H Sitting] Respiratory 19 Rate Blood Pressure Blood Pressure 109/93 H [Right Brachial artery] Blood Pressure 111/74 111/74 [Sitting] Blood Pressure 109/93 H 109/93 H [Standing] O2 Saturation 94 Oxygen O2 Source Room air I&O (Last 24 Hrs): Intake and Output Totals x24h 01/17/22 01/18/22 01/19/22 23:59 23:59 23:59 Intake Total 1650 2069.667 Output Total 50 850 Balance 1600 1219.667 General: Alert, Cooperative, No acute distress HEENT: Atraumatic Neck: Supple Lymphatic: no adenopathy Neuro: Alert, Non Focal Cardiovascular: Regular rate, Normal S1, Normal S2 Respiratory: Chest non-tender, No respiratory distress Abdomen: Normal bowel sounds, Soft, No tenderness Extremities: Normal pulses - Results Results: Laboratory Results WBC 6.4 x10^3/uL (4.8-10.8) 01/19/22 04:16 RBC 3.80 10^6/uL (4.20-5.40) L 01/19/22 04:16 Hgb 13.0 g/dL (12.0-16.0) 01/19/22 04:16 Hct 40.5 % (37.0-47.0) 01/19/22 04:16 MCV 106.6 fL (81.0-99.0) H 01/19/22 04:16 MCH 34.2 pg (27.0-31.0) H 01/19/22 04:16 MCHC 32.1 g/dL (32.0-36.0) 01/19/22 04:16 RDW 13.9 % (12.0-15.0) 01/19/22 04:16 Plt Count 176 10^3/uL (130-450) 01/19/22 04:16 MPV 11.5 fL (7.9-10.8) H 01/19/22 04:16 Neut # (Auto) 4.0 10^3/uL (1.5-6.6) 01/19/22 04:16 Lymph # (Auto) 1.5 10^3/uL (1.5-3.5) 01/19/22 04:16 [place] # (Auto) 0.6 10^3/uL (0.0-1.0) 01/19/22 04:16 Eos # (Auto) 0.2 10^3/uL (0.0-0.7) 01/19/22 04:16 Baso # (Auto) 0.1 10^3/uL (0.0-0.1) 01/19/22 04:16 Absolute Nucleated RBC 0.00 x10^3/uL 01/19/22 04:16 Nucleated RBC % 0.0 /100WBC 01/19/22 04:16 D-Dimer 399.5 ng/mL (200.0-255.0) H 01/18/22 17:10 Sodium 140 mmol/L (135-145) 01/19/22 04:16 Potassium 3.2 mmol/L (3.5-5.0) L 01/19/22 04:16 Chloride 107 mmol/L (101-111) 01/19/22 04:16 Carbon Dioxide 24 mmol/L (21-32) 01/19/22 04:16 Anion Gap 9.0 (6-13) 01/19/22 04:16 BUN 12 mg/dL (6-20) 01/19/22 04:16 Creatinine 0.7 mg/dL (0.4-1.0) 01/19/22 04:16 Estimated GFR (MDRD) 80 (>89) L 01/19/22 04:16 Glucose 100 mg/dL (70-100) 01/19/22 04:16 Calcium 8.3 mg/dL (8.5-10.3) L 01/19/22 04:16 Total Bilirubin 1.3 mg/dL (0.2-1.0) H 01/18/22 13:18 AST 16 IU/L (10-42) 01/18/22 13:18 ALT 12 IU/L (10-60) 01/18/22 13:18 Alkaline Phosphatase 96 IU/L (42-121) 01/18/22 13:18 Troponin I High Sens 5.4 ng/L (2.3-14.8) 01/18/22 13:18 B-Natriuretic Peptide 78 pg/mL (5-100) 01/18/22 13:18 Total Protein 7.1 g/dL (6.7-8.2) 01/18/22 13:18 Albumin 3.6 g/dL (3.2-5.5) 01/18/22 13:18 Globulin 3.5 g/dL (2.1-4.2) 01/18/22 13:18 Albumin/Globulin Ratio 1.0 (1.0-2.2) 01/18/22 13:18 Lipase 45 U/L (22-51) 01/18/22 13:18 Vitamin B12 534 pg/mL (180-914) 01/19/22 04:16 Folate 8.75 ng/mL (5.90 - >24.8) 01/19/22 04:16 TSH 5.24 uIU/mL (0.34-5.60) 01/19/22 04:16 Urine Color YELLOW 01/18/22 13:50 Urine Clarity CLOUDY (CLEAR) 01/18/22 13:50 Urine pH 6.0 PH (5.0-7.5) 01/18/22 13:50 Ur Specific [place] 1.025 (1.002-1.030) 01/18/22 13:50 Urine Protein 100 mg/dL (NEGATIVE) H 01/18/22 13:50 Urine Glucose (UA) NEGATIVE mg/dL (NEGATIVE) 01/18/22 13:50 Urine Ketones 40 mg/dL (NEGATIVE) H 01/18/22 13:50 Urine Occult Blood LARGE (NEGATIVE) H 01/18/22 13:50 Urine Nitrite POSITIVE (NEGATIVE) H 01/18/22 13:50 Urine Bilirubin NEGATIVE (NEGATIVE) 01/18/22 13:50 Urine Urobilinogen 1 (NORMAL) E.U./dL (NORMAL) 01/18/22 13:50 Ur Leukocyte Esterase LARGE (NEGATIVE) H 01/18/22 13:50 Urine RBC TNTC /HPF (0-5) H 01/18/22 13:50 Urine WBC >25 /HPF (0-5) H 01/18/22 13:50 Urine WBC Clumps PRESENT 01/18/22 13:50 Ur Squamous Epith Cells FEW Squamous (<= Few) 01/18/22 13:50 Urine Bacteria Moderate /HPF (None Seen) H 01/18/22 13:50 Urine Yeast PRESENT 01/18/22 13:50 Ur Microscopic Review INDICATED 01/18/22 13:50 Urine Culture Comments INDICATED 01/18/22 13:50 SARS-CoV-2 (PCR) NOT DETECTED 01/18/22 11:58 - Procedures Procedures: Procedures EXCISION OF LARGE INTESTINE, ENDO, DIAGN (09/23/15) EXCISION OF TRANSVERSE COLON, ENDO (09/23/15) ABX Reporting Has patient been on IV antibiotics over the past 48 hours?: Yes Current Medications - Current Medications Current Medications: Active Medications Acetaminophen (Acetaminophen 325 Mg Tablet) 650 mg PO Q4HR PRN PRN Reason: Pain 1 to 4, or Fever Last Admin: 01/19/22 08:42 Dose: 650 mg Enoxaparin Sodium (Enoxaparin 40 Mg/0.4 Ml Syringe) 40 mg SUBQ DAILY [facility] Last Admin: 01/19/22 08:41 Dose: 40 mg Ceftriaxone Sodium 1 gm/ (Sodium Chloride) 100 mls @ 200 mls/hr IV DAILY [facility] Last Infusion: 01/19/22 09:15 Dose: Infused Memantine (Memantine 5 Mg Tablet) 10 mg PO BID [facility] Last Admin: 01/19/22 08:41 Dose: 10 mg Ondansetron HCl (Ondansetron Odt 4 Mg Tablet) 4 mg TL Q6HR PRN PRN Reason: Nausea / Vomiting Oxycodone HCl (Oxycodone 5 Mg Tablet) 5 mg PO Q4HR PRN PRN Reason: Pain 5 to 7 Last Admin: 01/19/22 11:01 Dose: 5 mg Paroxetine HCl (Paroxetine 10 Mg Tablet) 30 mg PO DAILY [facility] Last Admin: 01/19/22 08:41 Dose: 30 mg Prochlorperazine Edisylate (Prochlorperazine 10 Mg/2 Ml Vial) 10 mg IVP Q6HR PRN PRN Reason: Nausea / Vomiting Propranolol HCl (Propranolol Er 60 Mg Capsule) 60 mg PO DAILY [facility] Last Admin: 01/19/22 08:42 Dose: 60 mg Sodium Chloride (Sodium Chloride Flush 0.9% 10 Ml Syringe) 10 ml IVP PRN PRN PRN Reason: NEEDED PER PROVIDER ORDERS Sodium Chloride (Sodium Chloride Flush 0.9% 10 Ml Syringe) 10 ml IVP 0100,0900,1700 [facility] Last Admin: 01/19/22 08:41 Dose: Not Given Thiamine HCl (Thiamine 100 Mg Tablet) 100 mg PO DAILY [facility] Last Admin: 01/19/22 08:42 Dose: 100 mg Cyclobenzaprine HCl 5 mg PO TID PRN 01/19/22 HYDROcod/ACETAM 5/325 [[place] 5/325] 1 tablet PO Q4H PRN 01/19/22 PARoxetine HCl [Paxil] 30 mg PO DAILY 01/19/22 Propranolol ER [Inderal LA] 60 mg PO DAILY 01/19/22 traMADol [Ultram] 50 mg PO Q8H PRN 01/19/22
[2022-01-20 05:17] LABS: BASOPHILS % (AUTO) 0.7 %; EOSINOPHILS # (AUTO) 0.3 10^3/uL (0.0-0.7); EOSINOPHILS % (AUTO) 5.2 %; HCT - HEMATOCRIT 36.5 % (37.0-47.0); HGB - HEMOGLOBIN 11.9 g/dL (12.0-16.0); LYMPHOCYTES # (AUTO) 1.8 10^3/uL (1.5-3.5); LYMPHOCYTES % (AUTO) 30.4 %; MEAN CORPUSCULAR HGB CONC 32.6 g/dL (32.0-36.0); MEAN CORPUSCULAR VOLUME 107.4 fL (81.0-99.0); MEAN PLATELET VOLUME 11.1 fL (7.9-10.8); MONOCYTES # (AUTO) 0.7 10^3/uL (0.0-1.0); MONOCYTES % (AUTO) 12.3 %; NEUTROPHILS % (AUTO) 51.2 %; PLT - PLATELET COUNT 185 10^3/uL (130-450); RED CELL DISTRIBUTION WIDTH 13.8 % (12.0-15.0); WHITE BLOOD COUNT 5.9 x10^3/uL (4.8-10.8)
[2022-01-20 05:30] LABS: CALCIUM 8.5 mg/dL (8.5-10.3); CREATININE 0.7 mg/dL (0.4-1.0); POTASSIUM 3.6 mmol/L (3.5-5.0)
[2022-01-20] MEDS: MEMANTINE 5 MG TABLET PO SCH ×2 (09:22→20:12)
[2022-01-20] MEDS: PROPRANOLOL ER 60 MG CAPSULE PO SCH (09:23)
[2022-01-20] MEDS: PARoxetine 10 MG TABLET PO SCH (09:23)
[2022-01-20] MEDS: SODIUM CHLORIDE FLUSH 0.9% 10 ML SYRINGE IVP SCH ×2 (09:24→17:14)
[2022-01-20] MEDS: THIAMINE 100 MG TABLET PO SCH (09:24)
[2022-01-20] MEDS: cefTRIAXone 1 GM in SODIUM CHLORIDE 0.9% MINIBAG 100 ML IV SCH (09:30)
[2022-01-20] MEDS: ENOXAPARIN 40 MG/0.4 ML SYRINGE SUBQ SCH (09:31)
--- NOTE | 2022-01-20 15:34 | PROVIDER PROGRESS NOTE ---
Assessment/Plan - Problem List (1) Acute metabolic encephalopathy Assessment/Plan: 01/20 great improved on today. pt accurately provide her medical and social history. pt is alert and oriented +3 on today. 01/19 pt still present confused but slightly improved. Patient has a history of dementia. CT head showed no acute abnormalities. UA analysis show UTI infection, we will continue treat with antibiotics. vitamin B12, folate, TSH are at normal range, neuro check (2) UTI (urinary tract infection) Conclusion/Plan: pt has hx of Multiple times of urinary tract infection. Her urinalysis suggests infection and she also has symptoms. Suspect this may be causing her altered mental status. There is currently no evidence of sepsis. We will asked to continue her on ceftriaxone IV based off of prior cultures. Follow-up urine culture. (3) Nephrolithiasis Conclusion/Plan: Patient denies jose manuel pain.There was no evidence of obstruction on CT but she does have nephrolithiasis which is chronic. (4) Left humeral fracture Conclusion/Plan: 01/20 pt had PT and OT evaluation and treatment on today again. PT and OT believe patient has high risk for fall. pt had recently fall which lead to left humeral fracture, continue sling support and followup with her PCP and out-pt orthopedics, continue PT/OT, continue pain control, continue social services analyst consult for placement. This is secondary to a recently fall. we will continue PT/OT and fall prevention, And consult with social work for disposition planning, We will continue with the sling in place and she can follow-up with orthopedic surgery on outpatient basis. Tylenol as needed for pain control. We will look to limit the use of oxycodone given her altered mental status but she may ultimately require opiates. (5) Dementia Conclusion/Plan: We will continue her home Nam[place]. We will manage her altered mental status as mentioned above. (6) COPD (chronic obstructive pulmonary disease) Conclusion/Plan: Stable and not in exacerbation. Continue with albuterol as needed. (7) Essential tremor Conclusion/Plan: stable, Continue propranolol. - Current Meds Current Meds: Current Medications Generic Name Dose Route Start Last Admin Trade Name Freq PRN Reason Stop Dose Admin Acetaminophen 650 mg 01/18/22 16:56 01/19/22 08:42 Acetaminophen 325 Mg Tablet PO 650 mg Q4HR PRN Administration Pain 1 to 4, or Fever Enoxaparin Sodium 40 mg 01/19/22 09:00 01/20/22 09:31 Enoxaparin 40 Mg/0.4 Ml Syringe SUBQ 40 mg DAILY [place] Administration Memantine 10 mg 01/18/22 21:00 01/20/22 09:22 Memantine 5 Mg Tablet PO 10 mg BID [place] Administration Oxycodone HCl 5 mg 01/18/22 16:56 01/19/22 21:25 Oxycodone 5 Mg Tablet PO 5 mg Q4HR PRN Administration Pain 5 to 7 Paroxetine HCl 30 mg 01/19/22 09:00 01/20/22 09:23 Paroxetine 10 Mg Tablet PO 30 mg DAILY [place] Administration Propranolol HCl 60 mg 01/19/22 09:00 01/20/22 09:23 Propranolol Er 60 Mg Capsule PO 60 mg DAILY [place] Administration Sodium Chloride 10 ml 01/18/22 17:00 01/20/22 09:24 Sodium Chloride Flush 0.9% 10 Ml Syringe IVP 10 ml 0100,0900,1700 [place] Administration Thiamine HCl 100 mg 01/19/22 09:00 01/20/22 09:24 Thiamine 100 Mg Tablet PO 100 mg DAILY [place] Administration - Lab Result Fish Bone Diagrams: 01/20/22 05:05 01/20/22 05:05 - Additional Planning My Orders: My Active Orders 01/19/22 16:04 Neuro Check [RC] QSHIFT 01/20/22 17:00 Saccharomyces Boulardii [Florastor] 250 mg PO BIDWM 01/21/22 09:00 cefUROXime axetiL [Ceftin] 500 mg PO BID Subjective - Subjective Patient Reports: Feeling Better, Resting Comfortably Objective Vital Signs: Vital Signs - 24 hr 01/19/22 01/19/22 01/20/22 15:32 18:30 00:20 Temperature 37 C 36.7 C 36.3 C L Heart Rate [ 68 74 68 Brachial] Respiratory 18 16 16 Rate Blood Pressure 111/58 L 104/51 L 120/63 [Right Brachial artery] O2 Saturation 96 96 96 01/20/22 01/20/22 01/20/22 05:00 07:45 12:56 Temperature 36.7 C 36.9 C 36.7 C Heart Rate [ 63 65 79 Brachial] Respiratory 16 16 16 Rate Blood Pressure 122/54 L 117/61 110/60 [Right Brachial artery] O2 Saturation 94 96 96 Oxygen O2 Source Room air I&O (Last 24 Hrs): Intake and Output Totals x24h 01/18/22 01/19/22 01/20/22 23:59 23:59 23:59 Intake Total 1650 2659.667 800 Output Total 50 1250 735 Balance 1600 1409.667 65 General: Alert, Oriented x3, Cooperative, No acute distress HEENT: Atraumatic Neck: Supple Lymphatic: no adenopathy Neuro: Alert, Non Focal, Oriented Times 3 Cardiovascular: Regular rate, Normal S1, Normal S2 Respiratory: Chest non-tender, No respiratory distress Abdomen: Normal bowel sounds, Soft Extremities: Normal pulses - Results Results: Laboratory Results WBC 5.9 x10^3/uL (4.8-10.8) 01/20/22 05:05 RBC 3.40 10^6/uL (4.20-5.40) L 01/20/22 05:05 Hgb 11.9 g/dL (12.0-16.0) L 01/20/22 05:05 Hct 36.5 % (37.0-47.0) L 01/20/22 05:05 MCV 107.4 fL (81.0-99.0) H 01/20/22 05:05 MCH 35.0 pg (27.0-31.0) H 01/20/22 05:05 MCHC 32.6 g/dL (32.0-36.0) 01/20/22 05:05 RDW 13.8 % (12.0-15.0) 01/20/22 05:05 Plt Count 185 10^3/uL (130-450) 01/20/22 05:05 MPV 11.1 fL (7.9-10.8) H 01/20/22 05:05 Neut # (Auto) 3.0 10^3/uL (1.5-6.6) 01/20/22 05:05 Lymph # (Auto) 1.8 10^3/uL (1.5-3.5) 01/20/22 05:05 Terrell # (Auto) 0.7 10^3/uL (0.0-1.0) 01/20/22 05:05 Eos # (Auto) 0.3 10^3/uL (0.0-0.7) 01/20/22 05:05 Baso # (Auto) 0.0 10^3/uL (0.0-0.1) 01/20/22 05:05 Absolute Nucleated RBC 0.00 x10^3/uL 01/20/22 05:05 Nucleated RBC % 0.0 /100WBC 01/20/22 05:05 D-Dimer 399.5 ng/mL (200.0-255.0) H 01/18/22 17:10 Sodium 143 mmol/L (135-145) 01/20/22 05:05 Potassium 3.6 mmol/L (3.5-5.0) 01/20/22 05:05 Chloride 111 mmol/L (101-111) 01/20/22 05:05 Carbon Dioxide 24 mmol/L (21-32) 01/20/22 05:05 Anion Gap 8.0 (6-13) 01/20/22 05:05 BUN 14 mg/dL (6-20) 01/20/22 05:05 Creatinine 0.7 mg/dL (0.4-1.0) 01/20/22 05:05 Estimated GFR (MDRD) 80 (>89) L 01/20/22 05:05 Glucose 94 mg/dL (70-100) 01/20/22 05:05 Calcium 8.5 mg/dL (8.5-10.3) 01/20/22 05:05 Total Bilirubin 1.3 mg/dL (0.2-1.0) H 01/18/22 13:18 AST 16 IU/L (10-42) 01/18/22 13:18 ALT 12 IU/L (10-60) 01/18/22 13:18 Alkaline Phosphatase 96 IU/L (42-121) 01/18/22 13:18 Troponin I High Sens 5.4 ng/L (2.3-14.8) 01/18/22 13:18 B-Natriuretic Peptide 78 pg/mL (5-100) 01/18/22 13:18 Total Protein 7.1 g/dL (6.7-8.2) 01/18/22 13:18 Albumin 3.6 g/dL (3.2-5.5) 01/18/22 13:18 Globulin 3.5 g/dL (2.1-4.2) 01/18/22 13:18 Albumin/Globulin Ratio 1.0 (1.0-2.2) 01/18/22 13:18 Lipase 45 U/L (22-51) 01/18/22 13:18 Vitamin B12 534 pg/mL (180-914) 01/19/22 04:16 Folate 8.75 ng/mL (5.90 - >24.8) 01/19/22 04:16 TSH 5.24 uIU/mL (0.34-5.60) 01/19/22 04:16 Urine Color YELLOW 01/18/22 13:50 Urine Clarity CLOUDY (CLEAR) 01/18/22 13:50 Urine pH 6.0 PH (5.0-7.5) 01/18/22 13:50 Ur Specific [place] 1.025 (1.002-1.030) 01/18/22 13:50 Urine Protein 100 mg/dL (NEGATIVE) H 01/18/22 13:50 Urine Glucose (UA) NEGATIVE mg/dL (NEGATIVE) 01/18/22 13:50 Urine Ketones 40 mg/dL (NEGATIVE) H 01/18/22 13:50 Urine Occult Blood LARGE (NEGATIVE) H 01/18/22 13:50 Urine Nitrite POSITIVE (NEGATIVE) H 01/18/22 13:50 Urine Bilirubin NEGATIVE (NEGATIVE) 01/18/22 13:50 Urine Urobilinogen 1 (NORMAL) E.U./dL (NORMAL) 01/18/22 13:50 Ur Leukocyte Esterase LARGE (NEGATIVE) H 01/18/22 13:50 Urine RBC TNTC /HPF (0-5) H 01/18/22 13:50 Urine WBC >25 /HPF (0-5) H 01/18/22 13:50 Urine WBC Clumps PRESENT 01/18/22 13:50 Ur Squamous Epith Cells FEW Squamous (<= Few) 01/18/22 13:50 Urine Bacteria Moderate /HPF (None Seen) H 01/18/22 13:50 Urine Yeast PRESENT 01/18/22 13:50 Ur Microscopic Review INDICATED 01/18/22 13:50 Urine Culture Comments INDICATED 01/18/22 13:50 SARS-CoV-2 (PCR) NOT DETECTED 01/18/22 11:58 - Procedures Procedures: Procedures EXCISION OF LARGE INTESTINE, ENDO, DIAGN (09/23/15) EXCISION OF TRANSVERSE COLON, ENDO (09/23/15) ABX Reporting Has patient been on IV antibiotics over the past 48 hours?: Yes Current Medications - Current Medications Current Medications: Active Medications Acetaminophen (Acetaminophen 325 Mg Tablet) 650 mg PO Q4HR PRN PRN Reason: Pain 1 to 4, or Fever Last Admin: 01/19/22 08:42 Dose: 650 mg Cefuroxime Axetil (Cefuroxime Axetil 250 Mg Tablet) 500 mg PO BID [facility] Enoxaparin Sodium (Enoxaparin 40 Mg/0.4 Ml Syringe) 40 mg SUBQ DAILY [facility] Last Admin: 01/20/22 09:31 Dose: 40 mg Memantine (Memantine 5 Mg Tablet) 10 mg PO BID [facility] Last Admin: 01/20/22 09:22 Dose: 10 mg Ondansetron HCl (Ondansetron Odt 4 Mg Tablet) 4 mg TL Q6HR PRN PRN Reason: Nausea / Vomiting Oxycodone HCl (Oxycodone 5 Mg Tablet) 5 mg PO Q4HR PRN PRN Reason: Pain 5 to 7 Last Admin: 01/19/22 21:25 Dose: 5 mg Paroxetine HCl (Paroxetine 10 Mg Tablet) 30 mg PO DAILY [facility] Last Admin: 01/20/22 09:23 Dose: 30 mg Prochlorperazine Edisylate (Prochlorperazine 10 Mg/2 Ml Vial) 10 mg IVP Q6HR PRN PRN Reason: Nausea / Vomiting Propranolol HCl (Propranolol Er 60 Mg Capsule) 60 mg PO DAILY [facility] Last Admin: 01/20/22 09:23 Dose: 60 mg Saccharomyces Boulardii (Saccharomyces Boulardii 250 Mg Capsule) 250 mg PO BIDWM [facility] Sodium Chloride (Sodium Chloride Flush 0.9% 10 Ml Syringe) 10 ml IVP PRN PRN PRN Reason: NEEDED PER PROVIDER ORDERS Sodium Chloride (Sodium Chloride Flush 0.9% 10 Ml Syringe) 10 ml IVP 0100,0 900,1700 [facility] Last Admin: 01/20/22 09:24 Dose: 10 ml Thiamine HCl (Thiamine 100 Mg Tablet) 100 mg PO DAILY [facility] Last Admin: 01/20/22 09:24 Dose: 100 mg Cyclobenzaprine HCl 5 mg PO TID PRN 01/19/22 HYDROcod/ACETAM 5/325 [[place] 5/325] 1 tablet PO Q4H PRN 01/19/22 PARoxetine HCl [Paxil] 30 mg PO DAILY 01/19/22 Propranolol ER [Inderal LA] 60 mg PO DAILY 01/19/22 traMADol [Ultram] 50 mg PO Q8H PRN 01/19/22
[2022-01-20] MEDS: oxyCODONE 5 MG TABLET PO PRN ×2 (15:35→20:13)
[2022-01-20] MEDS: SACCHAROMYCES BOULARDII 250 MG CAPSULE PO SCH (17:14)
[2022-01-20] MEDS: CALCIUM CARBONATE CHEW 500 MG TABLET PO SCH (20:12)
[2022-01-21] MEDS: SODIUM CHLORIDE FLUSH 0.9% 10 ML SYRINGE IVP SCH ×2 (01:39→08:22)
[2022-01-21] MEDS: oxyCODONE 5 MG TABLET PO PRN ×2 (04:05→13:39)
[2022-01-21 05:30] LABS: BASOPHILS # (AUTO) 0.1 10^3/uL (0.0-0.1); EOSINOPHILS # (AUTO) 0.3 10^3/uL (0.0-0.7); EOSINOPHILS % (AUTO) 5.6 %; HCT - HEMATOCRIT 37.2 % (37.0-47.0); LYMPHOCYTES # (AUTO) 1.4 10^3/uL (1.5-3.5); LYMPHOCYTES % (AUTO) 26.9 %; MEAN CORPUSCULAR HEMOGLOBIN 34.3 pg (27.0-31.0); MEAN CORPUSCULAR HGB CONC 32.3 g/dL (32.0-36.0); MEAN CORPUSCULAR VOLUME 106.3 fL (81.0-99.0); MEAN PLATELET VOLUME 11.3 fL (7.9-10.8); MONOCYTES # (AUTO) 0.6 10^3/uL (0.0-1.0); MONOCYTES % (AUTO) 11.2 %; NEUTROPHILS # (AUTO) 2.9 10^3/uL (1.5-6.6); NEUTROPHILS % (AUTO) 55.1 %; PLT - PLATELET COUNT 199 10^3/uL (130-450); RED CELL DISTRIBUTION WIDTH 13.7 % (12.0-15.0); WHITE BLOOD COUNT 5.2 x10^3/uL (4.8-10.8)
[2022-01-21 05:47] LABS: CREATININE 0.8 mg/dL (0.4-1.0); POTASSIUM 3.7 mmol/L (3.5-5.0)
[2022-01-21] MEDS: CALCIUM CARBONATE CHEW 500 MG TABLET PO SCH (06:42)
[2022-01-21] MEDS: MEMANTINE 5 MG TABLET PO SCH (08:21)
[2022-01-21] MEDS: PARoxetine 10 MG TABLET PO SCH (08:21)
[2022-01-21] MEDS: PROPRANOLOL ER 60 MG CAPSULE PO SCH (08:22)
[2022-01-21] MEDS: THIAMINE 100 MG TABLET PO SCH (08:22)
[2022-01-21] MEDS: SACCHAROMYCES BOULARDII 250 MG CAPSULE PO SCH (08:22)
[2022-01-21] MEDS: ENOXAPARIN 40 MG/0.4 ML SYRINGE SUBQ SCH (08:22)
[2022-01-21] MEDS ORDERED: CHOLECALCIFEROL 25 MCG TABLET PO SCH (09:00)
[2022-01-21 12:39] LABS: B. PARAPERTUSSIS- RESP PCR PAN NOT DETECTED; B. PERTUSSIS- RESP PCR PANEL NOT DETECTED; C. PNEUMONIAE- RESP PCR PANEL NOT DETECTED; CORONAVIRUS 229E-RESP PCR NOT DETECTED; CORONAVIRUS HKU1-RESP PCR NOT DETECTED; CORONAVIRUS NL63-RESP PCR NOT DETECTED; CORONAVIRUS OC43-RESP PCR NOT DETECTED; HUMAN METAPNEUMOVIRUS NOT DETECTED; INFLUENZA A- RESP PCR PANEL NOT DETECTED; INFLUENZA B - RESP PCR PANEL NOT DETECTED; M. PNEUMONIAE- RESP PCR PANEL NOT DETECTED; PARAINFLUENZA VIRUS 1 NOT DETECTED; PARAINFLUENZA VIRUS 2 NOT DETECTED; PARAINFLUENZA VIRUS 3 NOT DETECTED; PARAINFLUENZA VIRUS 4 NOT DETECTED; RHINOVIRUS/ENTEROVIRUS NOT DETECTED; RSV- RESP PCR PANEL NOT DETECTED; SARS-CoV-2 -RESP PCR PANEL NOT DETECTED
--- NOTE | 2022-01-21 12:55 | Discharge Plan ---
"Discharge Plan for SNF / [facility] - Discharge Plan And Transition Orders Problem Reviewed?: Yes Disposition: 03 SNF DC/Xfer Condition: Stable Allergies and Adverse Reactions: Allergies Allergy/AdvReac Type Severity Reaction Status Date / Time ibuprofen [From Motrin] Allergy Unknown Verified 01/18/22 13:00 Penicillins AdvReac Intermediate Hives Verified 01/18/22 13:00 Health Concerns: fall and left humeral fracture, UTI and AMS Plan of Treatment: pt became alert and oriented after she was treated for her UTI infection. pt had a fall at home which leaded to she had left humeral fracture. Pt is at high risk for fall. pt is d/c to [facility] for continuing PT/OT training and fall prevention. Pt may followup with orthopedics to monitor pt's left humeral fracture. Pt may resume her home pain medication as needed. pt is prescribed another two days antibiotics to finish UTI infection course. Care Goals: Stabilization and improvement of her medical conditions Assessment: Discussed the care plan with the patient, answered patient's questions, she understood and agreed - SNF / [facility] Transition Orders Admit to (Facility): [facility] Under the care of (Name): medical provider of [facility] Discharge Diagnosis: AMS, UTI, fall, Left humeral fracture, COPD, essential tremor Medicare Certification Statement: I certify that [facility] is medically necessary on a continuing basis for any of the conditions for which she/he is receiving care during hospitalization. Notify PCP of admission and forward orders to primary provider for signature. Weight on admission and: Weekly Call PCP immediately if weight increases by: 2 kg Other Notification Orders: Call PCP immediately if patient develops dyspnea, chest pain/tightness or edema. House Bowel Program: Yes Additional Bowel Program Orders: If no BM after 2 days, nurse may give M.O.M. 30ml PO PRN and/or ducolax Supp 1 DE and/or DIMA 250mg P.O., and/or senna 1-2 tabs PO. On day 3 nurse may give repeat above order until residents constipation is resolved. Annual Influenza Vaccine (between May 20 and December 17): Yes Two-step PPD per [facility] [id number] or approved exception documents: Yes Treatments & Other Orders: pt became alert and oriented after she was treated for her UTI infection. pt had a fall at home which leaded to she had left humeral fracture. Pt is at high risk for fall. pt is d/c to [facility] for continuing PT/OT training and fall prevention. Pt may followup with orthopedics to monitor pt's left humeral fracture. Pt may resume her home pain medication as needed. pt is prescribed another two days antibiotics to finish UTI infection course. Medication Orders: PLEASE REFER TO THE DISCHARGE MEDICATION LIST. Insulin Orders?: No - Medications New Prescriptions: cefUROXime axetiL [Ceftin] 500 mg PO BID #8 tablet Saccharomyces Boulardii [Florastor] 250 mg PO BIDWM #4 cap Calcium Carbonate [Tums (Calcium Carbonate 500mg)] 500 mg PO 0700,1900 #60 tablet Thiamine [Vitamin B-1] 100 mg PO DAILY #30 tablet Cholecalciferol [Vitamin D3] 50 mcg PO DAILY #60 tablet - Diet Type: Geriatric Texture: Regular Liquids: Thin May have monthly special meal: Yes - Therapies | Activity Therapy: Evaluation | Treat if indicated: PT, OT Rehabilitation Potential: Maximize functional status Activity: Activity as Tolerated"
--- NOTE | 2022-01-21 13:21 | DISCHARGE SUMMARY ---
Discharge Summary Admit Date: 01/18/22 Discharge Date: 01/21/22 Discharging Provider: Jeferson Man Primary Care Provider: Dr. Shruti Zamudio Condition at Discharge: Stable Discharge Disposition: SNF DC/Xfer Discharge Facility [facility]: [facility] - DIAGNOSES Discharge Diagnoses with Status of Each Condition: (1) Acute metabolic encephalopathy resolved. pt became alert and oriented as her baseline (2) UTI (urinary tract infection) pt is prescribed antibiotics for her UTI (3) Nephrolithiasis no pain, stable (4) Left humeral fracture pt had left humeral fracture from her fall at home. resume pt's home pain medications. Patient had a PT and OT evaluation, patient is at high risk of fall. Patient was recommended to discharge to SNF for continued strength training and fall prevention. Patient is discharged to [facility] SN[facility] (5) Dementia stable (6) COPD (chronic obstructive pulmonary disease) stable (7) Essential tremor stable, Continue home meds propranolol. - HPI History of Present Illness: refer from Dr. Grajeda's HPI on 01/18/22 This is a 81-year-old female with a past medical history significant for COPD, dementia, essential tremor who presents today complaining of abdominal pain. She states has been going on now for a few days and she has had associated dysuria and urgency. She feels like it is similar compared to her prior urinary tract infections. She states she fell a few days ago and this caused her to fracture her left arm. She is little confused and cannot member where she was seen but believes it may be [facility]. Currently reports her pain is controlled and she denies any numbness in the left upper extremity. She reports no fevers, chills. She has a history of kidney stones and has been admitted in the past due to sepsis secondary to an obstructing stone and urinary tract infection. The patient states she normally lives alone and ambulates with a cane at baseline. She does not believe she is a history of dementia but feels she is little confused at this time. She does drink 2 alcoholic beverages a day. She denies chest pain, dyspnea, syncope. She does occasionally feel dizzy and lightheaded and believes this is what caused her to fall few days ago. She was about 1-2 drinks and when she fell a few days ago. We discussed goals of care and she would like to be a DNR. - ALLERGIES Allergies/Adverse Reactions: Allergies Allergy/AdvReac Type Severity Reaction Status Date / Time ibuprofen [From Motrin] Allergy Unknown Verified 01/18/22 13:00 Penicillins AdvReac Intermediate Hives Verified 01/18/22 13:00 - MEDICATIONS Home Medications: Ambulatory Orders Medication Instructions Recorded Confirmed Cyclobenzaprine HCl 5 mg PO TID PRN 01/19/22 01/19/22 PARoxetine HCl [Paxil] 30 mg PO DAILY 01/19/22 01/19/22 Propranolol ER [Inderal LA] 60 mg PO DAILY 01/19/22 01/19/22 traMADol [Ultram] 50 mg PO Q8H PRN 01/19/22 01/19/22 Calcium Carbonate [Tums (Calcium 500 mg PO 0700,1900 #60 tablet 01/21/22 Carbonate 500mg)] Cholecalciferol [Vitamin D3] 50 mcg PO DAILY #60 tablet 01/21/22 HYDROcod/ACETAM 5/325 [[place] 5/325] 1 tablet PO Q4H PRN #20 tab 01/21/22 Saccharomyces Boulardii [Florastor] 250 mg PO BIDWM #4 cap 01/21/22 Thiamine [Vitamin B-1] 100 mg PO DAILY #30 tablet 01/21/22 cefUROXime axetiL [Ceftin] 500 mg PO BID #8 tablet 01/21/22 - PHYSICAL EXAM AT DISCHARGE General Appearance: positive: No acute distress, Alert. negative: Lethargic Eyes Bilateral: positive: Normal inspection, No lid inflammation ENT: positive: ENT inspection nml, No signs of dehydration. negative: Purulent nasal drainage Neck: positive: Nml inspection, Trachea midline. negative: Tracheal deviation Respiratory: positive: Chest non-tender, No respiratory distress. negative: Wheezes Cardiovascular: positive: Regular rate & rhythm. negative: Tachycardia, Bradycardia, Systolic murmur Peripheral Pulses: positive: 2+ Abdomen: positive: Non-tender, Nml bowel sounds, No distention. negative: Tenderness Back: positive: Nml inspection Skin: positive: Color nml, Warm, Dry. negative: Cyanosis Extremities: positive: Non-tender, Nml appearance, Other (pt has normal neurovascular examination on left upper extremity) Neurologic/Psychiatric: positive: Oriented x3, Sensation nml. negative: Weakness, Sensory loss, Facial droop, Slurred/abnml speech, Depressed mood/affect - LABS Result Diagrams: 01/21/22 05:15 01/21/22 05:15 - FOLLOW UP Follow Up: pt became alert and oriented after she was treated for her UTI infection. pt had a fall at home which leaded to she had left humeral fracture. Pt is at high risk for fall. pt is d/c to [facility] for continuing PT/OT training and fall prevention. Pt may followup with orthopedics to monitor pt's left humeral fract ure. Pt may resume her home pain medication as needed. - TIME SPENT Time Spent in Discharge (Minutes): 30
[2022-01-21 13:39] VITALS: BP 112/52
== END 2022-01-21 14:20 | DRG 689 ==
LOC: EDUNIT# → ED 12:45 → MS2 16:56 → OBSVTOIN 01-19 14:58
PROVIDERS: ADMIT Specialist; ATTEND Specialist
DX: N30.01 Acute cystitis with hematuria (principal); G93.41 Metabolic encephalopathy; S42.212D Unspecified displaced fracture of surgical neck of left humerus, subsequent encounter for fracture with routine healing; S42.292D Other displaced fracture of upper end of left humerus, subsequent encounter for fracture with routine healing; S42.202D Unspecified fracture of upper end of left humerus, subsequent encounter for fracture with routine healing; W19.XXXD Unspecified fall, subsequent encounter; J44.9 Chronic obstructive pulmonary disease, unspecified; F03.90 Unspecified dementia, unspecified severity, without behavioral disturbance, psychotic disturbance, mood disturbance, and anxiety; G25.0 Essential tremor; G89.29 Other chronic pain; M19.90 Unspecified osteoarthritis, unspecified site; M54.9 Dorsalgia, unspecified; N20.0 Calculus of kidney; C50.911 Malignant neoplasm of unspecified site of right female breast; K52.9 Noninfective gastroenteritis and colitis, unspecified; R07.9 Chest pain, unspecified; R55 Syncope and collapse; F32.A Depression, unspecified; Z66 Do not resuscitate; Z20.822 Contact with and (suspected) exposure to COVID-19; Z79.899 Other long term (current) drug therapy; Z82.49 Family history of ischemic heart disease and other diseases of the circulatory system; Z87.891 Personal history of nicotine dependence; Z88.0 Allergy status to penicillin; Z88.6 Allergy status to analgesic agent; Z96.659 Presence of unspecified artificial knee joint
CPT/HCPCS: 36415; 51701; 70450; 71045; 71260; 73020; 74177; 80048; 80053; 81001; 82607; 82746; 83690; 83880; 84443; 84484; 85025; 85379; 87086; 87633; 87635; 93005; 96361; 96365; 96376; 97116; 97162; 97165; 97530; 97535; 99284; 99285; A9270; J1650; Q9967; 81003

== ENCOUNTER 2022-02-12 16:30 | Outpatient (CLI) | payer MEDICARE, OTHER, MEDICAID | END 2022-02-12 23:59 | disposition home or self-care (01) | LOC: LAB.R 16:30 | PROVIDERS: ATTEND Physician Assistant Medical | DX: N39.0 Urinary tract infection, site not specified (principal) | CPT/HCPCS: 87086 ==

== ENCOUNTER 2022-12-31 13:13 | Outpatient (CLI) | payer MEDICARE, OTHER, MEDICAID ==
--- NOTE | 2022-12-31 15:01 | CT Report ---
PROCEDURE: ABDOMEN/PELVIS WO INDICATIONS: DYSURIA TECHNIQUE: Noncontrast 5 mm thick sections acquired from the diaphragms to the symphysis. 5 mm coronal and sagi ttal reformats were then performed. For radiation dose reduction, the following was used: automated exposure control, adjustment of mA and/or kV according to patient size. COMPARISON: 01/18/2022 FINDINGS: Image quality: Good Lower chest: Scattered scarring/atelectasis. There are coronary and annular calcifications. Postsurgi isela changes at the gastroesophageal junction, stable Solid organs: Subcentimeter hepatic lesions are too small to characterize. Per latest proposed guidel afsaneh, no dedicated followup is needed assuming patient has no primary malignancy history and is not h igh risk. Liver is otherwise unremarkable. Gallbladder is unremarkable. No pathologic dilation of the biliary tree or pancreatic duct. No splenomegaly. No adrenal nodules. No hydronephrosis. Bilateral renal calculi are present, nonobstructing, greater burden on the left kidney, overall simil ar compared to 2021 imaging along for differences in technique. The largest stone in the left anterio r mid region measures 9 x 10 mm (3/57). There are also renal cysts. Subcentimeter lesions are too small to characterize, probably also cysts. Vessels and lymph nodes: No abdominal aortic aneurysm. No lymphadenopathy by size criteria. Bowel and peritoneum: No evidence of small bowel obstruction. There are colonic diverticula. No patho logic ascites or abscess. Body wall: Small fat-containing umbilical hernia. Pelvis: No calcified bladder stones. Moderate perivesicular fat stranding. There is also bladder wall thickening. Limited CT evaluation of the reproductive organs is unremarkable. Bones: No acute or suspicious osseous finding. Degenerative changes are present. IMPRESSION: Moderate perivesicular fat stranding, as well as wall thickening, suspicious for lower urinary tract infection. No calcified bladder stones. No hydronephrosis. However, there are multiple intrarenal non obstructing calculi, largest measuring up to 10 mm, similar burden compared to January 2022. Other findings as above. Reviewed by: Nicolas Robertson MD on 12/31/2022 3:00 PM PDT Approved by: Nicolas Robertson MD on 12/31/2022 3:00 PM PDT Station ID: [id number]
== END 2022-12-31 13:14 | disposition home or self-care (01) ==
LOC: DI 13:13
PROVIDERS: ATTEND Physician Assistant Medical
DX: R30.0 Dysuria (principal); R10.31 Right lower quadrant pain; N20.0 Calculus of kidney

== ENCOUNTER 2023-01-06 14:12 | Outpatient (CLI) | payer MEDICARE, OTHER, MEDICAID ==
[2023-01-06 14:18] LABS: BILIRUBIN,URINE NEGATIVE (NEGATIVE); GLUCOSE, URINE (UA) NEGATIVE (NEGATIVE); KETONES,URINE (UA) NEGATIVE (NEGATIVE); LEUKOCYTE ESTERASE, URINE SMALL (NEGATIVE); NITRITE,URINE NEGATIVE (NEGATIVE); OCCULT BLOOD,URINE LARGE (NEGATIVE); PH,URINE 5.5 PH (5.0-7.5); PROTEIN,URINE 30 mg/dL (NEGATIVE); UROBILINOGEN,URINE 0.2 (NORMAL) E.U./dL (NORMAL)
[2023-01-06 14:42] LABS: CLARITY,URINE CLOUDY (CLEAR); RBC,URINE TNTC /HPF (0-5); WBC CLUMPS,URINE PRESENT; WBC,URINE >25 /HPF (0-5)
[2023-01-06 14:43] LABS: BACTERIA,URINE Rare /HPF (None Seen); CRYSTALS,URINE >50 Calcium Oxalate /LPF; SQUAMOUS EPITHELIAL CELL,UR RARE Squamous (<= Few)
== END 2023-01-06 14:13 | disposition home or self-care (01) ==
LOC: LAB 14:12 → LAB.R 14:13
PROVIDERS: ATTEND Nurse Practitioner Adult Health
DX: R30.0 Dysuria (principal)
CPT/HCPCS: 81001; 87086

== ENCOUNTER 2023-03-23 08:00 | Outpatient (CLI) | payer MEDICARE, OTHER, MEDICAID ==
[2023-03-23 17:56] LABS: BILIRUBIN,URINE NEGATIVE (NEGATIVE); CLARITY,URINE CLOUDY (CLEAR); GLUCOSE, URINE (UA) NEGATIVE (NEGATIVE); KETONES,URINE (UA) NEGATIVE (NEGATIVE); LEUKOCYTE ESTERASE, URINE MODERATE (NEGATIVE); NITRITE,URINE NEGATIVE (NEGATIVE); OCCULT BLOOD,URINE LARGE (NEGATIVE); PH,URINE 5.5 PH (5.0-7.5); PROTEIN,URINE 100 mg/dL (NEGATIVE); UROBILINOGEN,URINE 0.2 (NORMAL) E.U./dL (NORMAL)
[2023-03-23 18:06] LABS: BACTERIA,URINE Moderate /HPF (None Seen); SQUAMOUS EPITHELIAL CELL,UR FEW Squamous (<= Few); WBC,URINE >25 /HPF (0-5)
== END 2023-03-23 23:59 | disposition home or self-care (01) ==
LOC: LAB.WCP 08:00
PROVIDERS: ATTEND Nurse Practitioner
DX: R30.0 Dysuria (principal)
CPT/HCPCS: 81001; 87086

== ENCOUNTER 2023-04-18 10:07 | Observation (INO) | payer MEDICARE, OTHER, MEDICAID ==
[~2023-04-18 10:07] MED LIST changes: -BUFFERED LIDOCAINE 10 ML SYRINGE ONE; -BUPIVACAINE 0.5%-EPI 1:200000 PF 10 ML VIAL ONE; +CIPROFLOXACIN 400 MG/200 ML 400 MG/200 ML BAG IV ONE
[2023-04-18] MEDS ORDERED: LACTATED RINGERS 1,000 ML IV ONE ×3 (10:45→13:14)
[2023-04-18] MEDS ORDERED: fentaNYL 100 MCG/2 ML VIAL ONE ×2 (10:51→11:36)
[2023-04-18] MEDS ORDERED: MIDAZOLAM 2 MG/2 ML VIAL ONE (10:51)
[2023-04-18] MEDS ORDERED: PROPOFOL 200 MG/20 ML VIAL IVP ONE ×2 (10:51→11:32)
--- NOTE | 2023-04-18 11:04 | ANESTHESIA ---
Pre-Anesthesia VS, & Labs - Diagnosis left ureteral stone, bladder mass - Procedure transurethral resection of bladder tumor Vital Signs: Temp Pulse Resp BP Pulse Ox O2 Flow Rate 37.1 C 78 26 H 130/73 98 04/18/23 10:33 04/18/23 10:33 04/18/23 10:33 04/18/23 10:33 04/18/23 10:33 Height: 5 ft 3 in Weight (kg): 63.5 kg Body Mass Index: 24.7 BMI Classification: Normal - NPO >8 hours - Is Patient ?: No Home Medications and Allergies Cyclobenzaprine HCl 5 mg PO TID PRN 01/19/22 PARoxetine HCL [Paxil] 30 mg PO DAILY 01/19/22 Propranolol ER [Inderal LA] 60 mg PO DAILY 01/19/22 traMADol [Ultram] 50 mg PO Q8H PRN 01/19/22 Allergies/Adverse Reactions: Allergies Allergy/AdvReac Type Severity Reaction Status Date / Time Penicillins Allergy Intermediate Hives Verified 04/15/23 13:15 ibuprofen [From Motrin] Allergy Hives Verified 04/15/23 13:14 Anes History & Medical History - Anesthetic History Anesthesia Complications: reports: No previous complications - Medical History Cardiovascular: reports: None Pulmonary: reports: COPD Gastrointestinal: reports: Hiatal hernia, Chronic diarrhea Urinary: reports: Kidney stones Neuro: reports: Dementia Musculoskeletal: reports: Osteoarthritis, Chronic back pain Endocrine/Autoimmune: reports: None Skin: reports: None Smoking Status: Never smoker - Surgical History General: reports: Hiatal hernia repair Eyes Ears Nose Throat (EENT): reports: Cataracts, Detached retina repair, Other Urologic: reports: Kidney stents Orthopedic: reports: Knee replacement Exam General: Alert, Oriented x3, Moderate distress Dental: Partials Upper, Partials Lower Mouth Opening: Greater than 4 Fingerbreadths Neck Mobility: Normal Mallampati classification: II Thyromental Distance: greater than 6 cm Respiratory: Lungs clear Cardiovascular: Regular rate Plan Anesthesia Type: General Consent for Procedure(s) Verified and Reviewed: Yes Code Status: Attempt Resuscitation ASA classification: 2-Mild systemic disease Is this case an emergency?: No
[2023-04-18] MEDS ORDERED: LIDOCAINE 2% URO-JET 5 ML SYRINGE UR ONE ×4 (11:05→11:30)
[2023-04-18] MEDS ORDERED: ONDANSETRON 4 MG/2 ML VIAL IVP PRN ×3 (11:38→16:05)
[2023-04-18] MEDS ORDERED: ePHEDrine 50 MG/ML VIAL IVP PRN (11:38)
[2023-04-18] MEDS ORDERED: HYDROmorphone 0.5 MG/0.5 ML SYRINGE IVP PRN ×2 (11:38→16:05)
[2023-04-18] MEDS ORDERED: METOCLOPRAMIDE 10 MG/2 ML VIAL IVP PRN (11:38)
[2023-04-18] MEDS ORDERED: MORPHINE 2 MG/ML CARPUJECT IVP PRN (11:38)
[2023-04-18] MEDS ORDERED: ATROPINE ABBOJECT 1 MG/10 ML SYRINGE IVP PRN (11:38)
[2023-04-18] MEDS ORDERED: fentaNYL 100 MCG/2 ML VIAL IVP PRN (11:38)
[2023-04-18] MEDS ORDERED: NALOXONE 0.4 MG/ML VIAL IVP PRN (11:38)
[2023-04-18] MEDS ORDERED: KETAMINE 200 MG/20 ML VIAL ONE (11:51)
[2023-04-18] MEDS ORDERED: LACTATED RINGERS 1,000 ML IV SCH (12:00)
--- NOTE | 2023-04-18 12:14 | Discharge Plan ---
Discharge Plan Problem Reviewed?: Yes Disposition: Home, Self Care Prescriptions: Docusate Sodium 100Mg Capsule [Colace 100Mg Capsule] 100 mg PO DAILY #14 cap cephALEXin [Keflex] 500 mg PO ONCE #1 cap oxyBUTYnin chloride [Oxybutynin Chloride ER] 5 mg PO DAILY #21 tab Phenazopyridine HCl [Pyridium] 200 mg PO TID #9 tablet oxyCODONE [Roxicodone] 5 mg PO Q4H PRN #12 tablet PRN Reason: Pain Diet: Regular Activity Restrictions: no heavy lifting >10lbs Shower Restrictions: No Driving Restrictions: Yes (No driving while taking pain medications) Additional Instructions or Follow Up instructions: It is normal to see blood in your urine for the next several weeks including small clots. It is normal to have some pain with urination. Is normal to have pain in your back especially on your left side with urination. You have a left-sided ureteral stent in place this must be removed by the urologist within the next 3 months. The plan as of now is remove this next week. You will be contacted for this. Ultimately it is your responsibility to follow-up and have the stent removed. No Smoking: If you smoke, Please STOP! Call for help. Follow-up with: Julian Lopez MD [Provider Admit Priv/Credential] -
--- NOTE | 2023-04-18 12:16 | OPERATIVE REPORT ---
Operative Report - General Procedure Date: 04/18/23 Planned Procedure: Cystoscopy, transurethral resection of bladder tumor, left ureteroscopy laser lithotripsy and stent Pre-Op Diagnosis: bladder mass, left ureteral stone Procedure Performed: Cystoscopy, transurethral resection of bladder tumor, left ureteroscopy, basket stone extraction and stent Post Op Diagnosis: bladder mass, left ureteral stone - Procedure Note Primary Surgeon: John Anesthesia Provider: RAFAEL Lopez Anesthesia Technique: General LMA Pathology: bladder tumor, left ureteral stones Estimated Blood Loss (mL): 3 Indications: bladder mass, left ureteral stone Findings: 2cm papillary tumor over trigone, more on left than right Pinpoint left UO which was more proximal and lateral than expected location 3 small stones in ureter, basket extracted Complications: right UO not seen - Other Other Information/Narrative: After informed consent was obtained the patient was brought to the OR and laid in the supine position at that point time the patient was As per anesthesia protocols and prepped and draped in usual sterile fashion. She was placed in lithotomy position. A 22 Hungarian scope was advanced into the urinary bladder immediately upon entering we could see that there was a grouping of papillary tumors all connected overlying the trigone more on the left side extending to the right side there is also a 1 cm isolated papillary appearing tumor on the left sided anterior wall of the bladder. The UOs were not readily apparent. A resectoscope was then advanced into the bladder and using the bipolar loop we resected these lesions. As they were at the trigone and appeared superficial we did not take deep bites to try and prevent too much postoperative pain. The lesions were sent for analysis. The 1 cm anterior wall tumor was also sent for analysis. At this point we reevaluate the bladder try to find the ureteral orifices. The left UO was identified it was pinpoint and was more lateral and proximal than the expected location. The right UO could not be confidently identified. Using a cystoscope we advanced a sensor wire up the left UO. We then used a cristina rt semi rigid ureteroscope and advanced to the left UO. About 1 cm proximal to the UO were seen 3 stones they are relatively small in size about 2 or 3 mm. We used a basket to grab these and remove them. The remainder of her distal ureter was then cleared using the ureteroscope, there were no other stones seen. Using a cystoscope we then placed a 6 Hungarian double-J 24 cm ureteral stent with good curling noted in the kidney and good curling in the bladder. Of note there is a large radiopaque stone in the lower possible midpole of her left kidney seen easily on fluoroscopy. We then replaced the resectoscope and used the bipolar loop with spot cautery for hemostasis. At this point we saw no other lesions or other concerns though again the UO in the right could not be identified with confidence. We elected to conclude the procedure. The bladder was emptied the bladder tumors were sent for analysis. The ureteral stones were sent for analysis. A Uro-Jet was placed into the urinary bladder. The patient was reversed from anesthesia and brought to PACU for further incident. All counts were correct.
[2023-04-18] MEDS: HYDROmorphone 0.5 MG/0.5 ML SYRINGE IVP PRN ×3 (12:46→21:01)
[2023-04-18] MEDS ORDERED: HYDROmorphone 0.5 MG/0.5 ML SYRINGE ONE ×2 (12:50→13:16)
--- NOTE | 2023-04-18 13:18 | ANESTHESIA POST OP EVALUATION ---
Anesthesia Post Eval - Post Anesthesia Eval Vitals: Last Vital Signs Temp 36.6 C 04/18/23 13:00 Pulse 86 04/18/23 13:00 Resp 18 04/18/23 13:00 BP 140/68 H 04/18/23 13:00 Pulse Ox 96 04/18/23 13:00 O2 Flow Rate CV Function Including HR & BP: Stable Pain Control: Satisfactory Nausea & Vomiting: Negative Mental Status: Baseline Respiratory Status: Airway Patent Hydration Status: Satisfactory Anesthesia Complications: None
[2023-04-18] MEDS ORDERED: oxyCODONE 5 MG TABLET ONE (13:38)
[2023-04-18] MEDS ORDERED: PHENAZOPYRIDINE 100 MG TABLET PO ONE (13:39)
[2023-04-18] MEDS: oxyCODONE 5 MG TABLET PO PRN ×3 (13:44→18:34)
[2023-04-18] MEDS: SOLIFENACIN SUCCINATE 5 MG TABLET PO ONE ×2 (14:15→16:29)
[2023-04-18] MEDS: DOCUSATE SODIUM 100 MG CAPSULE PO ONE ×2 (14:15→16:29)
[2023-04-18] MEDS: SENNA 8.6 MG TABLET PO ONE ×2 (14:15→16:29)
[2023-04-18] MEDS ORDERED: SODIUM CHLORIDE FLUSH 0.9% 10 ML SYRINGE IVP PRN (16:05)
[2023-04-18] MEDS ORDERED: oxyCODONE 5 MG TABLET PO PRN (16:05)
[2023-04-18] MEDS ORDERED: polyethylene glycoL 3350 17 GM PACKET PO PRN (16:09)
--- NOTE | 2023-04-18 16:48 | HISTORY & PHYSICAL EXAMINATION ---
Chief Complaint - Chief Complaint Chief Complaint: postop pain,mild hypoxia History of Present Illness - Admitted From Admitted From:: PACU - History Obtained From Records Reviewed: yes History obtained from: patient,Dr Lopez - History of Present Illness HPI Comment/Other: 83 yo female with PMH sig for COPD,Depression,Hx post op PE,R breast cancer,hx smoking quit40 yrs ago,ETOH daily use quit 1 year ago. Pt went to OR today for cystoscopy,TURB of bladder tumor,L ureteroscopy,basket stone extraction and stent. Pt has post op pain and mild hypoxia postop. Postop findings: 2 cm papillary tumor over trigoneL>R Pinpoint L UO ,3 small stones in ureter ,basket extracted. History - Past Medical History Cardiovascular: reports: None Respiratory: reports: COPD Neuro: reports: Dementia Endocrine/Autoimmune: reports: None GI: reports: Hiatal hernia, Chronic diarrhea : reports: Kidney stones HEENT: reports: None, Macular degeneration Psych: reports: Depression Musculoskeletal: reports: Osteoarthritis, Chronic back pain Derm: reports: None MRSA Hx?: No - Past Surgical History General: reports: Hiatal hernia repair Ortho: reports: Knee replacement HEENT: reports: Cataracts, Detached retina repair, Other - Family & Social History Family History Comment/Other: Her mother from coronary artery disease and a myocardial infarction. Her brother from a brain tumor. Living Situation: Alone Social History Notes: She lives at home alone. She smoked a pack a day for 25 years but quit over 30 years ago. She drinks 1-2 alcoholic beverages a night. She prefers vodka with water. Meds/Allgy - Home Medications Home Medications: Ambulatory Orders Medication Instructions Recorded Confirmed Cyclobenzaprine HCl 5 mg PO TID PRN 01/19/22 04/18/23 PARoxetine HCL [Paxil] 30 mg PO DAILY 01/19/22 04/18/23 Propranolol ER [Inderal LA] 60 mg PO DAILY 01/19/22 04/18/23 traMADol [Ultram] 50 mg PO Q8H PRN 01/19/22 04/18/23 Calcium Carbonate [Tums (Calcium 500 mg PO 0700,1900 #60 tablet 01/21/22 04/18/23 Carbonate 500mg)] Cholecalciferol [Vitamin D3] 50 mcg PO DAILY #60 tablet 01/21/22 04/18/23 HYDROcod/ACETAM 5/325 [[place] 5/325] 1 tablet PO Q4H PRN #20 tab 01/21/22 04/18/23 Saccharomyces Boulardii [Florastor] 250 mg PO BIDWM #4 cap 01/21/22 04/18/23 Thiamine [Vitamin B-1] 100 mg PO DAILY #30 tablet 01/21/22 04/18/23 Docusate Sodium 100Mg Capsule 100 mg PO DAILY #14 cap 04/18/23 [Colace 100Mg Capsule] Phenazopyridine HCl [Pyridium] 200 mg PO TID #9 tablet 04/18/23 cephALEXin [Keflex] 500 mg PO ONCE #1 cap 04/18/23 oxyBUTYnin chloride [Oxybutynin 5 mg PO DAILY #21 tab 04/18/23 Chloride ER] oxyCODONE [Roxicodone] 5 mg PO Q4H PRN #12 tablet 04/18/23 - Allergies Allergies/Adverse Reactions: Allergies Allergy/AdvReac Type Severity Reaction Status Date / Time Penicillins Allergy Intermediate Hives Verified 04/15/23 13:15 ibuprofen [From Motrin] Allergy Hives Verified 04/15/23 13:14 Review of Systems - Other Findings Other Findings: All systems reviewed and are negative except as noted in HPI. Exam - Vital Signs Reviewed Vital Signs: Yes Vital Signs: Vital Signs x48h Temp Pulse Resp BP Pulse Ox 04/18/23 15:30 36.8 C 89 16 135/68 H 98 04/18/23 15:00 36.8 C 85 14 138/62 H 95 04/18/23 14:30 36.8 C 87 16 125/81 H 98 04/18/23 14:15 36.8 C 81 16 125/58 L 98 04/18/23 13:59 37 C 83 16 138/57 H 97 04/18/23 13:45 37.0 C 84 16 131/71 H 98 04/18/23 13:14 37.0 C 88 16 149/66 H 95 04/18/23 13:00 36.6 C 86 18 140/68 H 96 04/18/23 12:55 36.6 C 87 20 139/73 H 96 04/18/23 12:50 36.6 C 88 18 126/71 95 04/18/23 12:45 36.6 C 91 18 145/72 H 95 04/18/23 12:40 36.6 C 96 18 133/77 H 96 04/18/23 12:35 36.6 C 99 16 140/81 H 95 04/18/23 12:30 36.6 C 90 18 138/69 H 96 04/18/23 12:25 36.4 C L 91 15 151/69 H 100 04/18/23 12:20 3604 C H 92 15 145/71 H 100 04/18/23 12:15 36 C L 95 15 147/75 H 100 04/18/23 12:10 36 C L 96 16 138/70 H 99 04/18/23 10:33 37.1 C 78 26 H 130/73 98 - Physical Exam General Appearance: positive: Moderate distress Eyes Bilateral: positive: Normal inspection Neck: positive: Nml inspection Respiratory: positive: Breath sounds nml Cardiovascular: positive: Regular rate & rhythm, No murmur Abdomen: positive: Tenderness (in lower quadrants BL) Skin: positive: No rash Extremities: positive: Non-tender Neurologic/Psychiatric: positive: Oriented x3 Conclusion/Plan - Problem List (1) Post-op pain Conclusion/Plan: pt placed in OBS for postop pain,mild hypoxia. Currently not requiring o2.She had cystoscopy and TURB of bladder tumor,L ureteroscopy laserlithotripsyand stent . (2) COPD (chronic obstructive pulmonary disease) Conclusion/Plan: Stable.no longer smokes. Not requiring O2 currently.Will monitor. Qualifiers: COPD type: chronic bronchitis (3) Depression Conclusion/Plan: Stable-continue home meds once med rec done.
[2023-04-18] MEDS ORDERED: PHENAZOPYRIDINE 100 MG TABLET PO SCH ×2 (17:00→22:00)
[2023-04-18] MEDS: ACETAMINOPHEN 325 MG TABLET PO PRN ×2 (17:00→21:01)
[2023-04-18] MEDS: SODIUM CHLORIDE FLUSH 0.9% 10 ML SYRINGE IVP SCH (17:53)
[2023-04-19] MEDS: HYDROmorphone 0.5 MG/0.5 ML SYRINGE IVP PRN ×3 (00:01→02:06)
[2023-04-19] MEDS: SODIUM CHLORIDE FLUSH 0.9% 10 ML SYRINGE IVP SCH ×2 (00:02→08:16)
[2023-04-19] MEDS: oxyCODONE 5 MG TABLET PO PRN (00:34)
[2023-04-19] MEDS ORDERED: oxyCODONE 5 MG TABLET PO PRN (02:54)
[2023-04-19] MEDS ORDERED: ACETAMINOPHEN 500 MG TABLET PO PRN (02:58)
[2023-04-19] MEDS ORDERED: PHENAZOPYRIDINE 100 MG TABLET PO PRN (03:11)
[2023-04-19] MEDS ORDERED: DOCUSATE SODIUM 100 MG CAPSULE PO SCH (09:00)
[2023-04-19] MEDS ORDERED: SOLIFENACIN SUCCINATE 5 MG TABLET PO SCH (09:00)
--- NOTE | 2023-04-19 10:39 | PHARMACY PROGRESS NOTE ---
- Best Possible Medication History Admit Date and Time: 04/18/23 160 Processed by: Pharmacy Medication History completed: Yes Patient Interview: Completed Secondary Source(s): Pharmacy records As the person ultimately responsible for medication therapy, providers are able to order a medication from an existing home medication list in [facility] via the "Reconcile Routine" prior to Confirmation of that medication by client support coordinator. Such practice is discouraged except when the physician, in their clinical judgment, deems that a medical need exists for a medication without regard to previous use.
--- NOTE | 2023-04-19 11:08 | Discharge Plan ---
Discharge Plan Problem Reviewed?: Yes Disposition: Home, Self Care Condition: Stable Prescriptions: Docusate Sodium 100Mg Capsule [Colace 100Mg Capsule] 100 mg PO DAILY #14 cap oxyCODONE [Roxicodone] 5 mg PO Q4H PRN #12 tablet PRN Reason: Pain Diet: Regular Activity Restrictions: no heavy lifting >10lbs Shower Restrictions: No Driving Restrictions: Yes (No driving while taking pain medications) Health Concerns: You were brought into the hospital to have a resection of your bladder tumor done through a instrument that goes through your urethra. You did very well with the procedure, but had a slow respiratory rate, and low oxygen when you were recovering. You also had pain. As such we kept you in the hospital overnight. Overnight you required [place] no oxygen. And your pain was controlled. Plan of Treatment: Nothing was done while you were in your stay other than providing with pain medicine and nausea medicine. You did not require any procedures or special treatment Additional Instructions or Follow Up instructions: It is normal to see blood in your urine for the next several weeks including small clots. It is normal to have some pain with urination. Is normal to have pain in your back especially on your left side with urination. You have a left-sided ureteral stent in place this must be removed by the urologist within the next 3 months. The plan as of now is remove this next week. You will be contacted for this. Ultimately it is your responsibility to follow-up and have the stent removed. No Smoking: If you smoke, Please STOP! Call for help. Follow-up with: Julian Lopez MD [Provider Admit Priv/Credential] -
--- NOTE | 2023-04-19 11:11 | DISCHARGE SUMMARY ---
"Discharge Summary Admit Date: 04/18/23 Discharge Date: 04/19/23 Discharging Provider: Susan Gay MD Primary Care Provider: Fay Perera DIGESTER OPERATOR HELPER Code Status: Do Not Attempt Resuscitation Condition at Discharge: Stable Discharge Disposition: 01 Home, Self Care - DIAGNOSES Admission Diagnoses: 1. Postoperative pain requiring further observation 2. Postoperative hypoxemia that resolved 3. Bladder tumor - HPI History of Present Illness: 83 yo female with PMH sig for COPD,Depression,Hx post op PE,R breast cancer,hx smoking quit40 yrs ago,ETOH daily use quit 1 year ago. Pt went to OR today for cystoscopy,TURB of bladder tumor,L ureteroscopy,basket stone extraction and stent. Pt has post op pain and mild hypoxia postop. Postop findings: 2 cm papillary tumor over trigoneL>R Pinpoint L UO ,3 small stones in ureter ,basket extracted. History - Past Medical History Cardiovascular: reports: None Respiratory: reports: COPD Neuro: reports: Dementia Endocrine/Autoimmune: reports: None GI: reports: Hiatal hernia, Chronic diarrhea : reports: Kidney stones HEENT: reports: None, Macular degeneration Psych: reports: Depression Musculoskeletal: reports: Osteoarthritis, Chronic back pain Derm: reports: None MRSA Hx?: No - Past Surgical History General: reports: Hiatal hernia repair Ortho: reports: Knee replacement HEENT: reports: Cataracts, Detached retina repair, Other - CONSULTS | PROCEDURES Procedures: Transurethral resection of bladder tumor with cystoscopy - HOSPITAL COURSE Hospital Course: The patient was placed in observation because of self stated uncontrolled pain, and transient hypoxemia in PACU. For the rest of her stay she did not require any oxygen and her oxygen was normal on room air sats. Pain was controlled with Dilaudid half a milligram and she received 6 doses between noon on the day of her procedure and 2 AM on the day of discharge. By 11 AM on the day of discharge she did not require any more Dilaudid. She was having mild urinary retention. The urologist was informed of that and said that he expected that to happen after procedure. He was not concerned about her need for a [place]. As such, with normal oxygen levels, and pain under control the patient was discharged. The urologist has already given a discharge plan with instructions. Those are to continue. She is discharged with a temperature 36.2, heart rate 86. Blood pressure 116/52. Respirations 20. 95% on room air. She is a delightful elderly 83-year-old female who is 5 feet 3 inches tall, and 63 kg. She is alert, oriented, with a lucid speech pattern. Neck is supple. Lungs are clear with diminished breath sounds at the bases. There is no respiratory effort that is increased with speaking to me or getting out of bed. She has a regular rate and rhythm. Abdomen is soft, vaguely a bit achy over the suprapubic area but nontender. Normal bowel sounds. Bowel movement was today. Extremities without edema. She gets up out of bed and ambulates without any assist. - ALLERGIES Allergies/Adverse Reactions: Allergies Allergy/AdvReac Type Severity Reaction Status Date / Time Penicillins Allergy Intermediate Hives Verified 04/15/23 13:15 ibuprofen [From Motrin] Allergy Hives Verified 04/15/23 13:14 - MEDICATIONS Home Medications: Ambulatory Orders Medication Instructions Recorded Confirmed PARoxetine HCL [Paxil] 30 mg PO DAILY 01/19/22 04/18/23 Propranolol ER [Inderal LA] 60 mg PO DAILY 01/19/22 04/18/23 traMADol [Ultram] 50 mg PO Q8H PRN 01/19/22 04/18/23 HYDROcod/ACETAM 5/325 [[place] 5/325] 1 tablet PO Q4H PRN #20 tab 01/21/22 04/18/23 Docusate Sodium 100Mg Capsule 100 mg PO DAILY #14 cap 04/18/23 [Colace 100Mg Capsule] oxyCODONE [Roxicodone] 5 mg PO Q4H PRN #12 tablet 04/18/23 Acetaminophen [Tylenol] 1 tab PO PRN PRN 04/19/23 04/19/23 Amitriptyline [Elavil] 1 tab PO DAILY 04/19/23 04/19/23 Melatonin 2 tab PO HS 04/19/23 04/19/23 Phenazopyridine HCl [Uristat Ultra] 1 tab PO TID PRN 04/19/23 04/19/23 Vit A/Vit C/Vit E/Zinc/Copper 2 tab PO DAILY 04/19/23 04/19/23 [Preservision Areds Softgel] diphenhydrAMINE HCL [Sleep Aid] 1 cap PO BID 04/19/23 04/19/23"
[2023-04-19 11:24] VITALS: BP 98/54
--- NOTE | 2023-04-19 13:09 | PROVIDER PROGRESS NOTE ---
Subjective - Prog Note Date Prog Note Date: 04/19/23 Prog Note Time: 11:00 - Subjective Pt reports feeling: Improved Subjective: admitted overnight for pain control requiring IV pain medications. This AM she is feeling better. She has had a BM. Her pain is mostly in left side. Now doing OK on oral medications only Objective - Vital Signs/Intake & Output Reviewed Vital Signs: Yes Vital Signs: Vital Signs x48h Temp Pulse Resp BP BP Pulse Ox 04/19/23 11:18 36.2 C L 84 20 98/54 L 94 04/19/23 07:40 36.2 C L 86 20 116/52 L 95 Intake & Output: Intake & Output 04/16/23 04/17/23 04/18/23 04/19/23 23:59 23:59 23:59 23:59 Intake Total 470 290 Output Total 1 100 Balance 469 190 - Objective General Appearance: positive: No acute distress Respiratory: positive: Breath sounds nml Cardiovascular: positive: Regular rate & rhythm Abdomen: positive: Non-tender, No organomegaly, Nml bowel sounds, No distention Assessment/Plan - Problem List (1) Lower abdominal pain Impression: Improved overnight with conservative management. She is voiding, PVR elevated at ~500cc but no tenderness suprapubically, and no voiding symptoms. Hemodynamically stable. Tolerating diet. Having bowel movements. Ok for discharge with PO pain medications Followup as planned for stent removal
--- NOTE | 2023-04-21 08:53 | XRAY Report ---
PROCEDURE: OR C-Arm Procedure INDICATIONS: LASER LITHOTRIPSY, STENT PLACEMENT FLUORO TIME: 0.01 MIN TECHNIQUE: 3 spot fluoroscopic intraprocedural images of the left abdomen and pelvis. COMPARISON: CT abdomen/pelvis 04/08/2023 FINDINGS: Fluoroscopic intraprocedural images demonstrate placement of a wire catheter into the left ureter. A few radiopaque renal calculi are present. IMPRESSION: Fluoroscopic images demonstrate left ureteral instrumentation. Reviewed by: Raúl Harmon MD on 04/21/2023 8:52 AM PDT Approved by: Raúl Harmon MD on 04/21/2023 8:52 AM PDT Station ID: [id number]
== END 2023-04-19 14:29 | disposition home or self-care (01) ==
LOC: SDS 10:07 → MS2 15:51 → SDS 21:47
PROVIDERS: ADMIT Specialist; ATTEND Urology
PROC: 0TBB8ZZ Excision of Bladder, Via Natural or Artificial Opening Endoscopic (ICD-10-PCS; principal; 2023-04-18 12:00)
DX: C67.0 Malignant neoplasm of trigone of bladder (principal); N20.1 Calculus of ureter; R09.02 Hypoxemia; J44.9 Chronic obstructive pulmonary disease, unspecified; Z87.891 Personal history of nicotine dependence; I10 Essential (primary) hypertension
CPT/HCPCS: 52234; 52332; 52352; A9270; C1758; C2617; G0378; J1170; J3490; J7120

== ENCOUNTER 2023-04-25 10:44 | Outpatient (CLI) | payer MEDICARE, OTHER, MEDICAID ==
--- NOTE | 2023-04-26 09:13 | Mammography Report ---
BILATERAL DIGITAL DIAGNOSTIC MAMMOGRAM 3D/2D: 04/25/2023 CLINICAL: Personal history of right breast cancer. Due for bilateral exam. Comparison is made to exams dated: 10/15/2021 mammogram - [facility], 05/07/2019 mammogram, and 04/26 mammogram - outside location. There are scattered areas of fibroglandular density in both breasts (category b / 25%-50% glandular t issue). There is an irregular mass with a spiculated margin in the right breast at 12 o'clock middle depth. This is increased in size and there are new adjacent asymmetries seen lateral to this mass on the cradle slide maker niocaudal view. There is a biopsy clip associated with the mass. No other significant masses, calcifications, or other findings are seen in either breast. IMPRESSION: INCOMPLETE: NEEDS ADDITIONAL IMAGING EVALUATION The irregular mass in the right breast is indeterminate. An ultrasound is recommended. This exam was interpreted at Station ID: [id number]. NOTE: For mammograms, a report in lay terms will be sent to the patient. Approximately 15% of breast malignancies will not be visualized mammographically. In the management of a palpable breast mass, a negative mammogram must not discourage biopsy of a clinically suspicious lesion. Electronically Signed By: Vale vazquez/:04/26/2023 08:58:34 Entry: - 04/26/2023 08:58:34 ACR BI-RADS Category 0: Incomplete 3340F PARENCHYMAL PATTERN: (A) - The breast(s) demonstrate(s) scattered fibroglandular densities. BI-RADS CATEGORY: (0) - 0 Ultrasound [id number] Immediate follow-up LATERALITY: (B)
== END 2023-04-25 10:45 | disposition home or self-care (01) ==
LOC: DI 10:44
PROVIDERS: ATTEND Nurse Practitioner
DX: C50.411 Malignant neoplasm of upper-outer quadrant of right female breast (principal); Z85.3 Personal history of malignant neoplasm of breast; N63.10 Unspecified lump in the right breast, unspecified quadrant

== ENCOUNTER 2023-06-27 11:10 | Outpatient (CLI) | payer MEDICARE, OTHER, MEDICAID ==
[2023-06-27 18:17] LABS: BILIRUBIN,URINE NEGATIVE (NEGATIVE); CLARITY,URINE CLOUDY (CLEAR); GLUCOSE, URINE (UA) NEGATIVE (NEGATIVE); KETONES,URINE (UA) NEGATIVE (NEGATIVE); LEUKOCYTE ESTERASE, URINE SMALL (NEGATIVE); NITRITE,URINE NEGATIVE (NEGATIVE); OCCULT BLOOD,URINE MODERATE (NEGATIVE); PROTEIN,URINE 100 mg/dL (NEGATIVE); UROBILINOGEN,URINE 0.2 (NORMAL) E.U./dL (NORMAL)
[2023-06-27 18:26] LABS: BACTERIA,URINE Few /HPF (None Seen); CRYSTALS,URINE 26-50 Ca Oxalate /LPF; SQUAMOUS EPITHELIAL CELL,UR RARE Squamous (<= Few); WBC,URINE >25 /HPF (0-5)
== END 2023-06-27 11:11 | disposition home or self-care (01) ==
LOC: LAB.N 11:10
PROVIDERS: ATTEND Urology
DX: R30.0 Dysuria (principal)
CPT/HCPCS: 81001; 81003; 87086